=== PATIENT | female | born 1960 | race Caucasian/White ===

== ENCOUNTER 2020-04-02 13:02 | Outpatient (REF) | payer OTHER, SELFPAY ==
--- NOTE | 2020-04-02 13:18 | MR_ITS ---
EXAMINATION: MR LUMBAR SPINE WITHOUT CONTRAST CLINICAL INFORMATION: Pain radiating into both hips and thighs. COMPARISON: Nuclear medicine bone scan from 03/06/2019. CT abdomen and pelvis from 10/27/2015. TECHNIQUE: MRI of the lumbar spine was obtained using routine sequences without contrast. FINDINGS: Mild left convex curvature of the lumbar spine. Mild degenerative grade 1 anterolisthesis of L3 on L4. Otherwise, normal anatomic alignment. Moderate degenerative disc disease from L3-S1. Mild degenerative disc disease from L1-L3. Associated mixed Modic discogenic endplate changes, including mild Modic type I discogenic edema at L1-L2 and L4-L5. Marrow edema within the posterior elements of L3 and L4 appears degenerative stress reactive. No additional suspicious marrow edema. The vertebral body heights are largely maintained. The conus medullaris terminates at the level of L2-L3. The distal spinal cord is normal in appearance. 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 No significant abnormalities of the paraspinal musculature. Limited evaluation of the intra-abdominal structures without significant abnormalities. The abdominal aorta is of normal contour and caliber. AXIAL SPINAL LEVELS: L1-L2: Shallow diffuse disc bulge. There is mild bilateral facet joint arthropathy. There is no neural foraminal stenosis. There is no spinal canal stenosis. L2-L3: Mild diffuse disc bulge. There is moderate bilateral facet joint arthropathy. There is mild bilateral neural foraminal stenosis. There is mild narrowing of the left greater than right lateral recesses with no overt spinal canal stenosis centrally. L3-L4: Moderate diffuse disc bulge exacerbated by uncovering from anterolisthesis. There is severe bilateral facet joint arthropathy. There is moderate left worse than right neural foraminal stenosis. There is severe spinal canal stenosis exacerbated by prominent dorsal epidural lipomatous tissue. L4-L5: Moderate diffuse disc bulge. There is moderate bilateral facet joint arthropathy. There is moderate to severe bilateral neural foraminal stenosis. There is stenosis of the lateral recesses with moderate spinal canal stenosis centrally. L5-S1: Moderate diffuse disc bulge with superimposed mild central disc extrusion with inferior migration. There is moderate bilateral facet joint arthropathy. There is severe left and moderate to severe right neural foraminal stenosis. There is stenosis of the lateral recesses with no overt spinal canal stenosis centrally. IMPRESSION: Moderate multilevel degenerative spondyloarthropathy of the lumbar spine as described in detail above. Most notably, there is severe L3-L4 and moderate L4-L5 spinal canal stenoses. There are stenoses of the lateral recesses at L4-L5 and L5-S1. Moderate to severe neural foraminal stenoses from L3-S1. Edema within the posterior elements of L3 and L4 appears degenerative stress reactive.
== END 2020-04-02 13:03 | disposition home or self-care (01) ==
LOC: HO.MRI 13:02
PROVIDERS: Visit Provider Internal Medicine
DX: M79.651 Pain in right thigh (principal); M25.552 Pain in left hip; M25.551 Pain in right hip
CPT/HCPCS: 72148

== ENCOUNTER → 2020-04-07 14:29 | Outpatient (BNVA) | payer OTHER, SELFPAY | PROVIDERS: PCP Internal Medicine; Visit Provider Anesthesiology | DX: Z76.89 Persons encountering health services in other specified circumstances (principal) ==

== ENCOUNTER → 2020-04-15 07:58 | Outpatient (BNVA) | payer OTHER, SELFPAY | PROVIDERS: PCP Internal Medicine; Visit Provider Anesthesiology | DX: Z76.89 Persons encountering health services in other specified circumstances (principal) ==

== ENCOUNTER 2020-06-29 07:35 | Outpatient (REF) | payer OTHER, SELFPAY ==
[2020-06-29 07:54] LABS: COVID-19 Test Negative (Negative)
== END 2020-06-29 07:36 | disposition home or self-care (01) ==
LOC: HO.EMPCOV 07:35
PROVIDERS: Visit Provider Internal Medicine
DX: Z20.828 Contact with and (suspected) exposure to other viral communicable diseases (principal)
CPT/HCPCS: 36415; 87635; C9803

== ENCOUNTER → 2021-01-28 14:00 | Outpatient (BNVA) | payer OTHER, SELFPAY | PROVIDERS: PCP Internal Medicine; Visit Provider Student in an Organized Health Care Education/Training Program | DX: M15.9 Polyosteoarthritis, unspecified (principal); F17.200 Nicotine dependence, unspecified, uncomplicated; Z88.6 Allergy status to analgesic agent; Z88.2 Allergy status to sulfonamides; Z88.8 Allergy status to other drugs, medicaments and biological substances; Z79.899 Other long term (current) drug therapy | CPT/HCPCS: 99212 ==

== ENCOUNTER → 2021-05-25 15:52 | Outpatient (BNVA) | payer OTHER, SELFPAY | PROVIDERS: Visit Provider Anesthesiology ==

== ENCOUNTER 2021-06-07 14:38 | Outpatient (REF) | payer OTHER, SELFPAY ==
--- NOTE | ~2021-06-07 | MR_ITS ---
MR LUMBAR SPINE WITHOUT IV CONTRAST CLINICAL INFORMATION: Spinal stenosis. COMPARISON: Lumbar spine MRI 04/02/2020. TECHNIQUE: MRI of the lumbar spine was obtained using routine sequences without contrast. FINDINGS: There are 5 nonrib-bearing lumbar-type vertebral bodies. There is grade 1 anterolisthesis of L3 on L4. Leftward convex scoliotic curvature of the lumbar spine. Vertebral body heights are maintained. There is mild disc volume loss and disc desiccation at L3-L4, L4-L5, and L5-S1. There Modic type I endplate signal changes at L4-L5 and L5-S1. There is no additional bone marrow edema. There are no acute fractures. Conus terminates at the L2 level. There are no significant extraspinal soft tissue findings. L1-L2: Small annular disc bulge. No central canal stenosis. Bilateral facet arthropathy. Mild foraminal encroachment bilaterally. L2-L3: Diffuse annular disc bulge and moderate bilateral facet arthropathy and ligamentum flavum thickening. No central canal stenosis. No significant foraminal stenosis. L3-L4: There is grade 1 anterolisthesis with uncovered disc. Diffuse annular disc bulge and severe bilateral facet arthropathy and ligamentum flavum thickening. Findings in concert result in similar severe central canal stenosis and mild to moderate bilateral foraminal stenosis. L4-L5: There is a broad-based right paracentral disc protrusion that results in progressive moderate central canal stenosis and severe right subarticular zone stenosis with compression of the traversing right L5 nerve root. There is a similar large right lateral disc protrusion at this level compresses the foraminal and extra foraminal segments of the exiting right L4 nerve root. L5-S1: A broad-based central disc protrusion results in mass effect on the traversing S1 nerve roots within the subarticular zones bilaterally, unchanged and disc osteophyte and facet arthropathy result in similar severe bilateral foraminal stenosis with compression of the exiting L5 nerve roots bilaterally. MR/MR lumbar spine wo con IMPRESSION: - At L3-L4, grade I anterolisthesis and multifactorial degenerative changes result in similar severe central canal stenosis and mild to moderate bilateral foraminal stenosis. - At L4-L5, a right paracentral disc protrusion is increased in size resulting in worsening moderate central canal stenosis and worsening severe right subarticular zone stenosis with compression of the traversing right L5 nerve root. Similar large right lateral disc protrusion at this level compresses the foraminal and extra foraminal segments of the exiting right L4 nerve root. Modic type I endplate signal changes at this level. - At L5-S1, a broad-based central disc protrusion results in mass effect on the traversing S1 nerve roots within the subarticular zones bilaterally, and disc osteophyte and facet arthropathy result in similar severe bilateral foraminal stenosis with compression of the exiting L5 nerve roots bilaterally. Modic type I endplate signal changes at this level.
== END 2021-06-07 14:39 | disposition home or self-care (01) ==
LOC: HO.MRI 14:38
PROVIDERS: PCP Internal Medicine; Visit Provider Neurological Surgery
DX: M48.061 Spinal stenosis, lumbar region without neurogenic claudication (principal)
CPT/HCPCS: 72148

== ENCOUNTER → 2021-06-28 14:30 | Outpatient (BNVA) | payer OTHER, SELFPAY | PROVIDERS: PCP Internal Medicine; Visit Provider Nurse Practitioner Family ==

== ENCOUNTER 2021-06-29 12:46 | Outpatient (REF) | payer OTHER, SELFPAY ==
[2021-06-29 15:11] LABS: Alanine Aminotransferase 19 U/L (0-31); Albumin Level 4.7 g/dL (3.5-5.0); Alkaline Phosphatase 83 U/L (39-117); Anion Gap 10 (12-20); Aspartate Amino Transferase 16 U/L (5-31); Bilirubin Total 0.4 mg/dL (0.0-1.0); Blood Urea Nitrogen 25 mg/dL (9-16); Calcium 9.8 mg/dL (8.4-10.2); Carbon Dioxide 31 mmol/L (22-29); Chloride 102 mmol/L (96-108); Estimated Glomerular Filt Rate 57; Glucose Random 93 mg/dL (60-115); Potassium 4.1 mmol/L (3.3-5.1); Sodium 139 mmol/L (135-145); Total Protein 7.1 g/dL (6.5-8.0)
[2021-06-29 15:33] LABS: Vitamin D 25-OH Total 37.7 ng/mL (>30)
== END 2021-06-29 12:47 | disposition home or self-care (01) ==
LOC: HO.LAB 12:46
PROVIDERS: PCP Internal Medicine; Visit Provider Nurse Practitioner Family
DX: M15.9 Polyosteoarthritis, unspecified (principal)
CPT/HCPCS: 36415; 80053; 82306

== ENCOUNTER → 2021-09-26 14:27 | Outpatient (BNVA) | payer OTHER, SELFPAY | PROVIDERS: PCP Internal Medicine; Visit Provider Nurse Practitioner Family | DX: Z13.89 Encounter for screening for other disorder (principal) ==

== ENCOUNTER 2021-09-29 08:11 | Outpatient (REF) | payer OTHER, SELFPAY ==
--- NOTE | ~2021-09-29 | XR_ITS ---
EXAMINATION: XR HIP-LEFT XR KNEE-BILATERAL CLINICAL INFORMATION: Bilateral knee pain and left hip pain. COMPARISON: None TECHNIQUE: 2 views of the left hip and 4 upright views each of both knees were obtained. FINDINGS: Left hip: The bony alignments are intact. The cortices are intact. No significant osteoarthrosis. The soft tissues are unremarkable. Multiple phleboliths are seen in the pelvis. Right knee: Moderate medial compartmental and mild lateral and mild to moderate patellofemoral compartmental osteoarthrosis is present. Curvilinear calcification is noted overlying the medial femoral condyle, consistent with medial collateral ligament calcification. Left knee: Mild tricompartmental osteoarthrosis is present. No evidence of any joint effusion or fracture and/or dislocation. XR/XR knee LT 3V IMPRESSION: 1. The left hip appears unremarkable. 2. Moderate medial and mild lateral and mild to moderate patellofemoral compartmental osteoarthrosis is present. Curvilinear soft tissue calcification overlying the medial femoral condyle is most consistent with medial collateral ligament calcification. 3. Mild tricompartmental osteoarthrosis of the left knee.
--- NOTE | ~2021-09-29 | XR_ITS ---
EXAMINATION: XR HIP-LEFT XR KNEE-BILATERAL CLINICAL INFORMATION: Bilateral knee pain and left hip pain. COMPARISON: None TECHNIQUE: 2 views of the left hip and 4 upright views each of both knees were obtained. FINDINGS: Left hip: The bony alignments are intact. The cortices are intact. No significant osteoarthrosis. The soft tissues are unremarkable. Multiple phleboliths are seen in the pelvis. Right knee: Moderate medial compartmental and mild lateral and mild to moderate patellofemoral compartmental osteoarthrosis is present. Curvilinear calcification is noted overlying the medial femoral condyle, consistent with medial collateral ligament calcification. Left knee: Mild tricompartmental osteoarthrosis is present. No evidence of any joint effusion or fracture and/or dislocation. XR/XR knee RT 3V IMPRESSION: 1. The left hip appears unremarkable. 2. Moderate medial and mild lateral and mild to moderate patellofemoral compartmental osteoarthrosis is present. Curvilinear soft tissue calcification overlying the medial femoral condyle is most consistent with medial collateral ligament calcification. 3. Mild tricompartmental osteoarthrosis of the left knee.
--- NOTE | ~2021-09-29 | XR_ITS ---
EXAMINATION: XR HIP-LEFT XR KNEE-BILATERAL CLINICAL INFORMATION: Bilateral knee pain and left hip pain. COMPARISON: None TECHNIQUE: 2 views of the left hip and 4 upright views each of both knees were obtained. FINDINGS: Left hip: The bony alignments are intact. The cortices are intact. No significant osteoarthrosis. The soft tissues are unremarkable. Multiple phleboliths are seen in the pelvis. Right knee: Moderate medial compartmental and mild lateral and mild to moderate patellofemoral compartmental osteoarthrosis is present. Curvilinear calcification is noted overlying the medial femoral condyle, consistent with medial collateral ligament calcification. Left knee: Mild tricompartmental osteoarthrosis is present. No evidence of any joint effusion or fracture and/or dislocation. XR/XR hip LT min 2V IMPRESSION: 1. The left hip appears unremarkable. 2. Moderate medial and mild lateral and mild to moderate patellofemoral compartmental osteoarthrosis is present. Curvilinear soft tissue calcification overlying the medial femoral condyle is most consistent with medial collateral ligament calcification. 3. Mild tricompartmental osteoarthrosis of the left knee.
== END 2021-09-29 08:12 | disposition home or self-care (01) ==
LOC: HO.XRAY 08:11
PROVIDERS: PCP Internal Medicine; Visit Provider Nurse Practitioner Family
DX: M25.561 Pain in right knee (principal); M25.562 Pain in left knee; M25.552 Pain in left hip
CPT/HCPCS: 73502; 73562

== ENCOUNTER 2021-10-06 12:51 | Outpatient (REF) | payer OTHER, SELFPAY ==
--- NOTE | ~2021-10-06 | XR_ITS ---
EXAMINATION: XR KNEE AP STANDING CLINICAL INFORMATION: Pain. COMPARISON: Radiographs of the knees dated from 09/29/2021. TECHNIQUE: AP bilateral standing view of the knees was obtained. FINDINGS: Again noted medial collateral ligamentous injury in the right knee. No interval injuries. Similar degree of moderate degenerative osteoarthritis in the medial compartment of the right knee and mild degenerative osteoarthritis elsewhere bilaterally. XR/XR knee standing BI IMPRESSION: No significant change since 09/29/2021.
== END 2021-10-06 12:52 | disposition home or self-care (01) ==
LOC: HO.HOSX 12:51
PROVIDERS: Visit Provider Orthopaedic Surgery
DX: M17.0 Bilateral primary osteoarthritis of knee (principal)
CPT/HCPCS: 20610; 73565; J1100

== ENCOUNTER → 2021-11-10 08:27 | Outpatient (BNVA) | payer OTHER, SELFPAY | PROVIDERS: Visit Provider Obstetrics & Gynecology | DX: Z01.419 Encounter for gynecological examination (general) (routine) without abnormal findings (principal) ==

== ENCOUNTER 2021-11-24 14:33 | Outpatient (REF) | payer OTHER, SELFPAY | END 2021-11-24 14:34 | disposition home or self-care (01) | LOC: HO.LAB 14:33 | PROVIDERS: Visit Provider Obstetrics & Gynecology | DX: N90.89 Other specified noninflammatory disorders of vulva and perineum (principal); L98.9 Disorder of the skin and subcutaneous tissue, unspecified | CPT/HCPCS: 56605; 56606; 88304; 88305; 88312 ==

== ENCOUNTER 2021-11-25 13:54 | Outpatient (REF) | payer OTHER, SELFPAY ==
--- NOTE | ~2021-11-25 | MM_ITS ---
EXAMINATION: BONE DENSITOMETRY CLINICAL INDICATION: Asymptomatic menopausal state. COMPARISON: None (current study represents initial baseline exam). TECHNIQUE: Using a [employer] DXA System (software version: 13.1) manufactured by [employer], dual-energy x-ray absorptiometry was performed of the lumbar spine and left hip. The images are of good technical quality. Summary results are attached. FINDINGS: AP SPINE L1-L2 (excluding L3 and L4): The data of L1-L4 has been changed to exclude the L3 and L4 vertebral bodies, because degenerative changes at these levels may cause overestimation of lumbar spine density. BMD 1.126 g/cm2, Z-score 0.3, T-score -0.3, normal. LEFT FEMUR, NECK: BMD 1.005 g/cm2, Z-score 0.6, T-score -0.2, normal. LEFT FEMUR, TOTAL: BMD 1.050 g/cm2, Z-score 0.8, T-score 0.3, normal. IDENTIFIED RISK FACTORS: Menopause, history of fracture (adult). HISTORY OF FRACTURE: Forearm, shoulder. MEDICATIONS: Calcium supplements or multivitamin, vitamin D. MM/XR DEXA axial skeleton IMPRESSION: 1. DIAGNOSIS: Normal bone density based on the lowest T-score value of -0.3 in the lumbar spine applying World Health Organization criteria. 2. 10-YEAR FRACTURE RISK PREDICTION, FRAX: According to the guidelines, FRAX calculation should only be performed on patients in the osteopenia bone density category. Therefore, FRAX was not performed on this patient. 3. Treatment Recommendations: NOF guidelines recommend consideration for treatment in postmenopausal women and men age 50 and older presenting with the following: -A hip or vertebral (clinical or morphometric) fracture. -T-score less than or equal to -2.5 at the femoral neck or spine after appropriate evaluation to exclude secondary causes. -Low bone mass at the hip or spine and a 10-year fracture probability by FRAX of greater than or equal to 3% for hip fracture or greater than or equal to 20% for major osteoporotic fracture based on the [place] adapted WHO algorithm. 4. Other Recommendations: All treatment decisions require clinical judgment and consideration of individual patient factors, including patient preferences, comorbidities, previous drug use, risk factors not captured in the FRAX model (e.g. frailty, falls, vitamin D deficiency, increased bone turnover, interval significant decline in bone density) and possible under or overestimation of fracture risk by FRAX. FUTURE SCAN RECOMMENDATION: People with diagnosed cases of osteoporosis or at high risk for fracture should have regular bone mineral density tests. For patients eligible for Medicare, routine testing is allowed once every 2 years. The testing frequency can be increased to one year for patients who have rapidly progressing disease, those who are receiving or discontinuing medical therapy to restore bone mass, or have additional risk factors.
--- NOTE | ~2021-11-25 | MM_ITS ---
EXAMINATION: MM SCREENING DIGITAL BREAST TOMOSYNTHESIS, BILATERAL CLINICAL INFORMATION: Screening. Asymptomatic. COMPARISON: Mammography: December 06, 2018 and studies dating back to November 06, 2011 TECHNIQUE: Digital breast tomosynthesis is performed in both the craniocaudal and mediolateral oblique views along with computer-aided detection (CAD). Synthesized 2D images are generated from the tomosynthesis. FINDINGS: There are scattered areas of fibroglandular density (ACR BI-RADS breast composition Category b). There are no significant masses, abnormal calcifications, or other abnormalities. MM/MM tomosynthesis screening BI IMPRESSION: There are no significant changes from prior study. ASSESSMENT: BI-RADS 1: Negative RECOMMENDATION: Routine annual mammography screening. This patient's information was entered into a reminder system with a target due date for their next mammogram.
== END 2021-11-25 13:55 | disposition home or self-care (01) ==
LOC: HO.MAMMO 13:54
PROVIDERS: Visit Provider Obstetrics & Gynecology
DX: Z12.31 Encounter for screening mammogram for malignant neoplasm of breast (principal); Z13.820 Encounter for screening for osteoporosis; Z78.0 Asymptomatic menopausal state; Z82.62 Family history of osteoporosis
CPT/HCPCS: 77063; 77067; 77080

== ENCOUNTER → 2022-01-02 08:17 | Outpatient (BNVA) | payer OTHER, SELFPAY | PROVIDERS: PCP Internal Medicine | DX: N81.10 Cystocele, unspecified (principal); R32 Unspecified urinary incontinence | CPT/HCPCS: 51798 ==

== ENCOUNTER 2022-03-09 14:07 | Outpatient (REF) | payer OTHER, SELFPAY ==
[2022-03-09 14:56] LABS: COVID-19 Test Negative (Negative); IDNOW Serial# 9DB6401D
== END 2022-03-09 14:08 | disposition home or self-care (01) ==
LOC: HO.LAB 14:07
PROVIDERS: Visit Provider Internal Medicine
DX: Z20.822 Contact with and (suspected) exposure to COVID-19 (principal)
CPT/HCPCS: 87635; C9803

== ENCOUNTER 2022-03-21 14:16 | Outpatient (AMB) | payer OTHER, SELFPAY ==
--- NOTE | 2022-03-17 15:10 | A.OFFVIS_ITS ---
Intake Intake Visit Reasons: 6 week follow up incontinence Intake Note: Patient is present for follow up incontinence Patient states that she previously seen ENGINE TESTING SUPERVISOR Maria Teresa and was referred to PT. Patient states that the referral was never inputted and never had the PT. Patient states that she would like to discuss to have Pessary. Blood Thinners: NONE Post Void Residual: 0ml Clinical Assoc Required: No Accompanied by: Self / Same As Patient Allergies sulfamethoxazole [From BACTRIM] Allergy (Intermediate, Verified 12/14/22 15:11) N/V trimethoprim [From BACTRIM] Allergy (Intermediate, Verified 12/14/22 15:11) N/V Sulfa (Sulfonamide Antibiotics) Allergy (Unknown, Verified 12/14/22 15:11) diarrhea gabapentin Allergy (Verified 12/14/22 15:11) swelling of hands and feet acetaminophen [Percocet] Adverse Reaction (Unknown, Verified 12/14/22 15:11) stomach upset oxycodone [Percocet] Adverse Reaction (Unknown, Verified 12/14/22 15:11) stomach upset From PERCOCET Allergy (Severe, Uncoded 12/14/22 15:11) INABILITY TO URINATE,VOMITING HPI HPI Comments History of Present Illness Details Sweta is a pleasant female. She is a patient of . She seen for following urologic conditions - genitourinary syndrome menopause GSM Occasional urgency and frequency Reports vaginal dryness Trial estradiol PFSH Medical History Chronic pain syndrome Hammer toe Osteoarthritis, generalized Spinal stenosis of lumbar region Surgical History H/O knee surgery H/O laminectomy H/O toe surgery H/O: hysterectomy S/P discectomy for herniated nucleus pulposus Family History Father Heart disease Stroke Maternal Grandfather Stroke Paternal Uncle Cancer Social History Alcohol intake: current Alcohol intake frequency: holidays/special occasions only Patient Tobacco Use Status: Former Tobacco user Tobacco use type: Cigarette Years Smoked: stopped few months ago Review of Systems Const Denies chills and Denies fever(s) Card Reports no additional complaints and Denies syncope Resp Denies cough GI Denies abdominal pain and Denies heartburn Reports as per HPI and Denies change in libido Neuro Denies syncope Psych Denies change in libido Endo Denies change in libido Physical Exam Const General: cooperative, healthy appearing, comfortable and no acute distress Orientation/consciousness: patient oriented x3 HEENT Face and sinus: Yes normal facial exam Mouth: moist mucous membranes Neck Neck: Yes normal visual inspection, Yes full ROM and Yes trachea midline Chest Chest palpation & inspection: normal inspection of the chest Resp Effort & Inspection: normal respiratory effort, able to speak in complete sentences and no respiratory distress GI Inspection: Yes normal to inspection Back/Spine/Pelvis Cervical Spine: normal cervical lordosis Thoracic/Lumbar Spine: thoracic and lumbar spine normal to inspection Skin General skin exam: no rashes or lesions noted Neuro General: patient oriented x3, gait normal, tone normal and moves all extremities Extrem General: Yes normal to inspection and Yes capillary refill normal Office Procedures Post Void Residual Post Residual Void Post Void Residual (PVR): 0 [id number]-Ampa Void Residual by ultrasound Results AMB Urinalysis, Automated UA Leukoctes 70 Ana/uL Last Edit by Jennifer Castro [facility] on 03/21/22 14:47 UA Nitrite Negative Last Edit by Jennifer Castro [facility] on 03/21/22 14:47 UA Urobilinogen 0.2 mg/dL Last Edit by Jennifer Castro [facility] on 03/21/22 14:4 7 UA Protein 15 mg/dL Last Edit by Jennifer Castro [facility] on 03/21/22 14:47 UA pH 6.0 Last Edit by Jennifer Castro [facility] on 03/21/22 14:47 UA Blood 0 Carlos/uL Last Edit by Jennifer Castro [facility] on 03/21/22 14:47 UA Specific Ona 1.030 Last Edit by Jennifer Castro [facility] on 03/21/22 14: 47 UA Ketone Negative Last Edit by Jennifer Castro [facility] on 03/21/22 14:47 UA Bilirubin 0 mg/dL Last Edit by Jennifer Castro [facility] on 03/21/22 14:47 UA Glucose 0 mg/dL Last Edit by Jennifer Castro [facility] on 03/21/22 14:47 Results Reviewed Results Reviewed: Laboratory Last Values Urine pH (Auto) 6.0 03/21/22 14:32 Specific Ona (Auto) 1.030 03/21/22 14:32 Urine Protein (Auto) 15 mg/dL 03/21/22 14:32 Glucose (UA)(Auto) 0 mg/dL 03/21/22 14:32 Urine Ketones (Auto) Negative 03/21/22 14:32 Urine Blood (Auto) 0 Carlos/uL 03/21/22 14:32 Urine Nitrite (Auto) Negative 03/21/22 14:32 Urine Bilirubin (Auto) 0 mg/dL 03/21/22 14:32 Urine Urobilinogen (Auto) 0.2 mg/dL 03/21/22 14:32 Leukocyte Esterase (Auto) 70 Ana/uL 03/21/22 14:32 Assessment & Plan Assessment & Plan (1) Urge incontinence of urine: Code(s): N39.41 - Urge incontinence (2) Lichen sclerosus: Code(s): L90.0 - Lichen sclerosus et atrophicus (3) Genitourinary syndrome of menopause: Code(s): N95.8 - Other specified menopausal and perimenopausal disorders Plan 3 week follow-up Orders: Orders AMB Urinalysis Automated 03/21/22 Z13.9 - Encounter for screening, unspecified AMB Post Void Residual by ultrasound 03/21/22 R32 - Unspecified urinary incontinence Medications: New estradiol 0.01%(0.1mg/gram) apply thin coat daily 42.5 grams 2RF 30 days L90.0 - Lichen sclerosus et atrophicus Patient Instructions: Imaging studies, laboratory and physical exam results were discussed and reviewed in detail. No major barriers to patient understanding were identified. An opportunity to ask questions regarding the treatment plan was provided. All questions were answered. The patient expressed understanding and agreement with the above treatment plan. The patient is aware they should contact our office by phone for worsening of their current condition or the appearance of new urologic symptoms. Compliance is encouraged with any medications and followup testing that is ordered. It is a privilege to participate in the urologic care of your patient. If you have any questions or concerns regarding treatment for the above conditions, or other urologic issues, please do not hesitate to contact me. The office telephone contact is [phone]. This note is constructed using voice recognition software. While every effort has been made to ensure accuracy systems support engineer errors may have been included. Yours sincerely, Dr Curtis Ambrose MD, [facility] - Urology Providers of Expert, Compassionate Care for the Genitourinary System Coding Level of Care Code New Pt Level 4 (58863) Diagnoses Urge incontinence of urine N39.41 Lichen sclerosus L90.0 Genitourinary syndrome of menopause N95.8 CPT Codes Post Residual Void - PVR CPT Code: 63887-Ogvl Void Residual by ultrasound ([id number])
== END 2022-03-21 15:16 | disposition home or self-care (01) ==
LOC: HO.HUSH 14:16
PROVIDERS: PCP Internal Medicine; Visit Provider Urology
DX: N39.41 Urge incontinence (principal); L90.0 Lichen sclerosus et atrophicus; N95.8 Other specified menopausal and perimenopausal disorders
CPT/HCPCS: 99204

== ENCOUNTER → 2022-03-21 14:16 | Outpatient (BNVA) | payer OTHER, SELFPAY | PROVIDERS: PCP Internal Medicine; Visit Provider Urology | DX: N39.41 Urge incontinence (principal); L90.0 Lichen sclerosus et atrophicus; N95.8 Other specified menopausal and perimenopausal disorders | CPT/HCPCS: 51798 ==

== ENCOUNTER → 2022-04-13 14:19 | Outpatient (BNVA) | payer OTHER, SELFPAY | PROVIDERS: PCP Internal Medicine; Visit Provider Urology | DX: N39.41 Urge incontinence (principal); N39.3 Stress incontinence (female) (male); N81.89 Other female genital prolapse; N81.10 Cystocele, unspecified | CPT/HCPCS: 51798; 57160 ==

== ENCOUNTER → 2022-07-17 09:22 | Outpatient (BNVA) | payer OTHER, SELFPAY | PROVIDERS: PCP Internal Medicine; Visit Provider Nurse Practitioner Family | DX: Z13.89 Encounter for screening for other disorder (principal) ==

== ENCOUNTER 2022-07-27 14:34 | Outpatient (REF) | payer OTHER, SELFPAY ==
[2022-07-27 15:31] LABS: Alanine Aminotransferase 14 U/L (0-31); Albumin Level 4.4 g/dL (3.5-5.0); Alkaline Phosphatase 81 U/L (39-117); Anion Gap 16 (12-20); Aspartate Amino Transferase 17 U/L (5-31); Bilirubin Total 0.3 mg/dL (0.0-1.0); Blood Urea Nitrogen 27 mg/dL (9-16); Calcium 9.5 mg/dL (8.4-10.2); Carbon Dioxide 23 mmol/L (22-29); Chloride 106 mmol/L (96-108); Estimated Glomerular Filt Rate 41; Glucose Random 94 mg/dL (60-115); Potassium 4.2 mmol/L (3.3-5.1); Sodium 141 mmol/L (135-145); Total Protein 6.5 g/dL (6.5-8.0)
== END 2022-07-27 14:35 | disposition home or self-care (01) ==
LOC: HO.LAB 14:34
PROVIDERS: Visit Provider Nurse Practitioner Family
DX: M17.0 Bilateral primary osteoarthritis of knee (principal)
CPT/HCPCS: 36415; 80053

== ENCOUNTER 2022-10-13 08:00 | Outpatient (RCR) | payer OTHER, SELFPAY ==
--- NOTE | 2022-08-07 18:19 | MHC.PT.EP ---
[facility] [place] Office [place] Office [place] [facility] [address] Willi Motta [address] [phone] F: [phone] F: [phone] F: [phone] F: [phone] Physical Therapy Plan of Care Date of Evaluation: Date of Surgery: Diagnosis: other female genital prolapse, stress incontinence (RC) Assessment: pt is a 62 y/o female presenting to physical therapy w/ referring diagnosis of other female genital prolapse, stress incontinence. PT diagnoses include M62.81 muscle weakness, N81.10 cystocele, unspecified, M62.83 muscle spasm, N39.46 mixed incontinence. Impairments include pain, decreased range of motion, decreased strength, impaired functional mobility, impaired postural awareness, and altered ambulation mechanics. pt is a good candidate for skilled PT due to age, potential remediation of impairments, typical disease/condition progression and prognosis, comorbidities, and motivation. pt would benefit from skilled PT intervention to provide a tailored strengthening and stretching exercise program, functional training, gait training, postural re-training, neuromuscular re-education, modalities as needed for pain, equipment safety demonstration. Frequency and Duration: The patient will be seen 1x/wk for 8 wks Short Term Goals: pt will be I w/ HEP to promote self-management of condition. Pt will decrease pad usage to 1x a day. Pt will demonstrate 10 consistent and consecutive 10 second pelvic floor contractions w/o glute compensations. Care Home Goals: Coordinate pelvic floor with thoracic diaphragm/ functional activities to reduce incontinence episodes. Pt will perform all ADL, work and recreational activities with 80% continence. Describe normal voiding frequency and patterns assessed via teachback method. Treatment Plan: Modalities to reduce pain, spasms and effusion. Manual therapy to restore motion and function. Therapeutic exercise to improve strength and flexibility. Neuromuscular re-education for posture and balance. Therapeutic activities to return to functional activities of daily living. Electronically signed by: Please sign and return to therapist. Thank you for your referral.
--- NOTE | 2022-10-24 11:22 | MHC.PT.DC ---
[facility] [place] Office [place] [facility] [place] Office [address] Willi Motta 140 [facility] [phone] F: [phone] F: [phone] F: [phone] F: [phone] Physical Therapy Discharge Report Diagnosis: other female genital prolapse, stress incontinence (RC) Date of Surgery: Date of Evaluation: 08/07/22 Date of Discharge: 10/24/22 Treatments to Date: 6 Cancellations to Date: 3 No Shows to Date: 0 Discharge Status: Achieved Goals Improved Function Independent with HEP Discharge Summary: pt stated she has not worn a pantiliner in over a week as she has not been having any leakage. She feels at this time she does not want to pursue surgery as she is happy w/ her progress w/ pelvic floor PT and enjoys the exercises. She is independent w/ her HEP which we reviewed today and she demonstrates excellent form and postural awareness. She was given an updated resistance band to progress the strength. I will keep her chart open for 2 weeks should she have any additional questions or concerns. Otherwise, I will discharge her. Electronically signed by: Lakisha Day PT, DPT Please sign and return to therapist. Thank you for your referral.
== END 2022-10-24 11:23 | disposition home or self-care (01) ==
LOC: HO.PT 08:00
PROVIDERS: PCP Internal Medicine; Visit Provider Urology
DX: N81.89 Other female genital prolapse (principal); N39.3 Stress incontinence (female) (male); N39.41 Urge incontinence
CPT/HCPCS: 97112; 97162

== ENCOUNTER 2022-10-18 10:45 | Outpatient (REF) | payer OTHER, SELFPAY ==
[2022-10-18 12:56] LABS: Amphetamine Screen Urine Not Detected (Not Detect); Barbiturates, Urine Not Detected (Not Detect); Benzodiazepines Screen Urine Not Detected (Not Detect); Cannabinoid Screen Urine Not Detected (Not Detect); Cocaine Screen Urine Not Detected (Not Detect); Fentanyl, urine Not Detected (Not Detect); Opiate Screen Urine Not Detected (Not Detect); Phencyclidine Screen Urine Not Detected (Not Detect)
== END 2022-10-18 10:46 | disposition home or self-care (01) ==
LOC: HO.LAB 10:45
PROVIDERS: PCP Internal Medicine; Visit Provider Nurse Practitioner Family
DX: Z79.899 Other long term (current) drug therapy (principal)
CPT/HCPCS: 80307; 80373

== ENCOUNTER 2022-11-30 14:38 | Outpatient (AMB) | payer OTHER, SELFPAY ==
--- NOTE | 2022-11-30 14:43 | A.OFFVIS_ITS ---
Intake Intake Visit Reasons: Pessary maintenance- 6m follow up Intake Note: Pt presents to the office today for pessary maintenance/6 month follow-up. Urinalysis done. PVR-0ml Allergies sulfamethoxazole [From BACTRIM] Allergy (Intermediate, Verified 02/01/23 15:16) N/V trimethoprim [From BACTRIM] Allergy (Intermediate, Verified 02/01/23 15:16) N/V Sulfa (Sulfonamide Antibiotics) Allergy (Unknown, Verified 02/01/23 15:16) diarrhea gabapentin Allergy (Verified 02/01/23 15:16) swelling of hands and feet acetaminophen [Percocet] Adverse Reaction (Unknown, Verified 02/01/23 15:16) stomach upset oxycodone [Percocet] Adverse Reaction (Unknown, Verified 02/01/23 15:16) stomach upset From PERCOCET Allergy (Severe, Uncoded 02/01/23 15:16) INABILITY TO URINATE,VOMITING HPI HPI Comments History of Present Illness Details Sweta is a 62-year-old female who presents to the office for 6-months follow-up for pessary maintenance. 11/30/22-- The patient was last seen on 05/25/22. She states she has been managing the pessary, and is able to remove and clean it. States having frequent voiding episodes and irritated skin due to wiping. The patient mentions occasional urinary episodes after every hour or two. Mentions drinking adequate amount of water. At once occasion the patient had episodes of nocturia every hour or 20 minutes. Has nocturia episodes which she links with increased fluid consumption during the day. The patient is using estradiol cream. Evaluation today-- Blood: negative, leukocytes: negative. Bladder scan PVR: 0 mL. Plan: Myrbetriq 50 mg QD was ordered. Follow-up after 6 months or sooner if needed. [facility] Medical History Chronic pain syndrome Hammer toe Osteoarthritis, generalized Spinal stenosis of lumbar region Surgical History H/O knee surgery H/O laminectomy H/O toe surgery H/O: hysterectomy S/P discectomy for herniated nucleus pulposus Family History Father Heart disease Stroke Maternal Grandfather Stroke Paternal Uncle Cancer Social History Alcohol intake: current Alcohol intake frequency: holidays/special occasions only Patient Tobacco Use Status: Former Tobacco user Tobacco use type: Cigarette Years Smoked: stopped few months ago Review of Systems Const All systems reviewed & are unremarkable except as noted in HPI and below Reports no additional complaints Eyes Reports no additional complaints ENT Reports no additional complaints Card Denies dyspnea Resp Denies cough and Denies dyspnea GI Reports no additional complaints Reports no additional complaints Musc Reports no additional complaints Skin/Breast Denies rash and Denies unusual bruising Neuro Reports no additional complaints Psych Reports no additional complaints Endo Reports no additional complaints Ba/Lymph Reports no additional complaints Aller/Immun Reports no additional complaints Physical Exam Const General: cooperative, healthy appearing and no acute distress Orientation/consciousness: patient oriented x3 HEENT Head: Yes normal to inspection, Yes normocephalic and Yes atraumatic Eyes Conjunctivae: conjunctivae normal Neck Neck: Yes normal visual inspection and Yes trachea midline Chest Chest palpation & inspection: normal inspection of the chest Resp Effort & Inspection: normal respiratory effort Cardio Rate: regular rate GI Inspection: Yes normal to inspection Skin General skin exam: no rashes or lesions noted Neuro General: patient oriented x3 Extrem General: No edema Psych Appearance: grossly normal Office Procedures Post Void Residual Post Residual Void Post Void Residual (PVR): 0 [id number]-Vywt Void Residual by ultrasound Results AMB Urinalysis, Automated UA Leukoctes 0 Ana/uL Last Edit by Ainsley Ritter MA on 11/30/22 15:01 UA Nitrite Negative Last Edit by Ainsley Ritter MA on 11/30/22 15:01 UA Urobilinogen 0.2 mg/dL Last Edit by Ainsley Ritter MA on 11/30/22 15:01 UA Protein 15 mg/dL Last Edit by Ainsley Ritter MA on 11/30/22 15:01 UA pH 6.0 Last Edit by Ainsley Ritter MA on 11/30/22 15:01 UA Blood 0 Carlos/uL Last Edit by Ainsley Ritter MA on 11/30/22 15:01 UA Specific [place] 1.020 Last Edit by Ainsley Ritter MA on 11/30/22 15:01 UA Ketone Negative Last Edit by Ainsley Ritter MA on 11/30/22 15:01 UA Bilirubin 0 mg/dL Last Edit by Ainsley Ritter MA on 11/30/22 15:01 UA Glucose 0 mg/dL Last Edit by Ainsley Ritter MA on 11/30/22 15:01 Results Reviewed Results Reviewed: Laboratory Last Values Urine pH (Auto) 6.0 11/30/22 14:46 Specific [place] (Auto) 1.020 11/30/22 14:46 Urine Protein (Auto) 15 mg/dL 11/30/22 14:46 Glucose (UA)(Auto) 0 mg/dL 11/30/22 14:46 Urine Ketones (Auto) Negative 11/30/22 14:46 Urine Blood (Auto) 0 Carlos/uL 11/30/22 14:46 Urine Nitrite (Auto) Negative 11/30/22 14:46 Urine Bilirubin (Auto) 0 mg/dL 11/30/22 14:46 Urine Urobilinogen (Auto) 0.2 mg/dL 11/30/22 14:46 Leukocyte Esterase (Auto) 0 Ana/uL 11/30/22 14:46 Assessment & Plan Assessment & Plan (1) Urge incontinence of urine: Code(s): N39.41 - Urge incontinence (2) JAMEL (stress urinary incontinence, female): Code(s): N39.3 - Stress incontinence (female) (male) (3) Cystocele: (4) Pelvic floor weakness: Code(s): N81.89 - Other female genital prolapse Plan Myrbetriq 50 mg QD was ordered. Follow-up after 6 months or sooner if needed. Orders: Orders AMB Urinalysis Automated 11/30/22 Z13.9 - Encounter for screening, unspecified AMB Post Void Residual by ultrasound 11/30/22 N39.41 - Urge incontinence Medications: New mirabegron ER (Myrbetriq) 50 mg PO DAILY 90 tabs 3RF Patient Instructions: The patient had an opportunity to ask questions regarding treatment plan. All questions were answered. Laboratory studies and physical exam results were discussed and reviewed in detail. No major barriers to understanding were identified. The patient expressed understanding and agreement with the above treatment plan. The patient is aware they should contact our office by phone for worsening of their current condition or the appearance of new symptoms. Compliance is encouraged with any medications and followup testing that is ordered. It is a privilege to be allowed the opportunity to participate in the urologic care of your patient. If you have any questions or concerns regarding treatment for the above conditions please do not hesitate to contact me. The office telephone contact is [phone]. This note is constructed in part using voice recognition software. While every effort has been made to ensure accuracy drill grinder errors may have been included. Yours sincerely, Nick Nunez MD Coding Level of Care Code Est Pt Level 4 (69050) Diagnoses Urge incontinence of urine N39.41 JAMEL (stress urinary incontinence, female) N39.3 Cystocele Pelvic floor weakness N81.89 CPT Codes Post Residual Void - PVR CPT Code: 39638-[id number] Void Residual by ultrasound ([id number])
== END 2022-11-30 15:05 | disposition home or self-care (01) ==
LOC: HO.HUSH 14:39
PROVIDERS: PCP Internal Medicine; Visit Provider Urology
DX: N39.41 Urge incontinence (principal); N39.3 Stress incontinence (female) (male); N81.89 Other female genital prolapse
CPT/HCPCS: 99214

== ENCOUNTER → 2022-11-30 14:38 | Outpatient (BNVA) | payer OTHER, SELFPAY | PROVIDERS: PCP Internal Medicine; Visit Provider Urology | DX: N39.41 Urge incontinence (principal); N39.3 Stress incontinence (female) (male); N81.89 Other female genital prolapse; N81.10 Cystocele, unspecified | CPT/HCPCS: 51798 ==

== ENCOUNTER → 2022-12-06 14:36 | Outpatient (BNVA) | payer OTHER, SELFPAY | PROVIDERS: PCP Internal Medicine; Visit Provider Obstetrics & Gynecology ==

== ENCOUNTER → 2022-12-14 14:31 | Outpatient (BNVA) | payer OTHER, SELFPAY | PROVIDERS: PCP Internal Medicine; Visit Provider Orthopaedic Surgery | DX: M17.0 Bilateral primary osteoarthritis of knee (principal); M48.061 Spinal stenosis, lumbar region without neurogenic claudication | CPT/HCPCS: 20610; J1100 ==

== ENCOUNTER 2023-01-11 14:33 | Outpatient (REF) | payer OTHER, SELFPAY ==
--- NOTE | ~2023-01-11 | MM_ITS ---
EXAMINATION: MM SCREENING DIGITAL BREAST TOMOSYNTHESIS, BILATERAL CLINICAL INFORMATION: Screening. Asymptomatic. The lifetime risk of breast cancer based on the Tyrer-Cuzick Model is 7.5%. COMPARISON: Mammography: This study is compared with prior exams dating back to 2018. TECHNIQUE: Digital breast tomosynthesis is performed in both the craniocaudal and mediolateral oblique views along with computer-aided detection (CAD). Synthesized 2D images are generated from the tomosynthesis. FINDINGS: There are scattered areas of fibroglandular density (ACR BI-RADS breast composition Category b). There are no significant masses, abnormal calcifications, or other abnormalities. MM/MM tomosynthesis screening BI IMPRESSION: No mammographic evidence of malignancy. ASSESSMENT: BI-RADS BI-RADS 1 - Negative RECOMMENDATION: Routine annual mammography screening. 1 year F/U This examination should not preclude the clinical evaluation of a suspicious palpable abnormality. This patient's information was entered into a reminder system with a target due date for their next mammogram.
== END 2023-01-11 14:34 | disposition home or self-care (01) ==
LOC: HO.MAMMO 14:33
PROVIDERS: Visit Provider Obstetrics & Gynecology
DX: Z12.31 Encounter for screening mammogram for malignant neoplasm of breast (principal)
CPT/HCPCS: 77063; 77067

== ENCOUNTER → 2023-01-11 15:00 | Outpatient (BNV) | payer OTHER, SELFPAY | PROVIDERS: Visit Provider Radiology Diagnostic Radiology | DX: Z12.31 Encounter for screening mammogram for malignant neoplasm of breast (principal) | CPT/HCPCS: 77063; 77067 ==

== ENCOUNTER 2023-02-01 15:00 | Outpatient (AMB) | payer OTHER, SELFPAY ==
--- NOTE | 2023-02-01 15:10 | MHC.OFFVIS ---
Intake Vital Signs 02/01/23 15:11 Height 5 ft 10 in Weight 194 lb 10.691 oz BMI 27.9 BP 126/78 Blood Pressure Location Rt brachial Position Sitting Pulse 75 Pulse Source Pulse Oximeter Temp 97.5 F Temp Source Skin Pulse Oximetry (%) 97 Intake Visit Reasons: osteoarthritis Intake Note: Pt seen today for OA follow up. Reports Tramadol withdrawals last used 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 Required: No Accompanied by: Self / Same As Patient Allergies sulfamethoxazole [From BACTRIM] Allergy (Intermediate, Verified 02/01/23 15:16) N/V trimethoprim [From BACTRIM] Allergy (Intermediate, Verified 02/01/23 15:16) N/V Sulfa (Sulfonamide Antibiotics) Allergy (Unknown, Verified 02/01/23 15:16) diarrhea gabapentin Allergy (Verified 02/01/23 15:16) swelling of hands and feet acetaminophen [Percocet] Adverse Reaction (Unknown, Verified 02/01/23 15:16) stomach upset oxycodone [Percocet] Adverse Reaction (Unknown, Verified 02/01/23 15:16) stomach upset From PERCOCET Allergy (Severe, Uncoded 02/01/23 15:16) INABILITY TO URINATE,VOMITING Medication List - Last Reconciled 02/01/23 by Trisha Lozano MD antiarthritic combination no.2 (glucosamine-chondroitin) mg PO DAILY biotin mcg PO cholecalciferol (vitamin D3) 125 mcg PO DAILY clobetasol 0.05% 1 appl topical DAILY 1 week cyanocobalamin (vitamin B-12) 5,000 mcg PO DAILY estradiol 0.01%(0.1mg/gram) apply thin coat daily 30 days fluticasone propionate 50 mcg/actuation 1 spray intranasal DAILY mirabegron ER (Myrbetriq) 50 mg PO DAILY HPI HPI Comments History of Present Illness Details This is a 62-year-old female with generalized osteoarthritis who presents for follow-up. She was last seen by Cande Garcia 07/17. At that time the plan was to attempt to taper the tramadol. Patient took herself off tramadol abruptly and suffered some withdrawal symptoms. She is through with these symptoms. After stopping the tramadol she did not feel that it was helping her much. She has been having worsening bilateral knee pain, worse on the right. She recently saw Dr. Barrera and had a steroid injection. She states that the steroid injection provided minimal relief. She takes Aleve 220 mg 2 tabs twice daily to help her overall pain. She uses Voltaren gel multiple times throughout the day. Tylenol does not help. She has been taking glucosamine for many years. [facility] Medical History Chronic pain syndrome Hammer toe Osteoarthritis, generalized Spinal stenosis of lumbar region Surgical History H/O knee surgery H/O laminectomy H/O toe surgery H/O: hysterectomy S/P discectomy for herniated nucleus pulposus Family History Father Heart disease Stroke Maternal Grandfather Stroke Paternal Uncle Cancer Social History Alcohol intake: current Alcohol intake frequency: holidays/special occasions only Patient Tobacco Use Status: Former Tobacco user Tobacco use type: Cigarette Years Smoked: stopped few months ago Review of [place] [facility] [place]ralgias, Reports limited range of motion and Reports stiffness Physical Exam Vital Signs: Last Vital Signs Temp 97.5 F 02/01/23 15:11 Pulse 75 02/01/23 15:11 BP 126/78 02/01/23 15:11 Pulse Ox 97 02/01/23 15:11 BMI result Body Mass Index 27.9 Const General: cooperative, healthy appearing and comfortable Nutritional Appearance: overweight Orientation/consciousness: patient oriented x3 Limitations: no limitations Resp Effort & Inspection: normal respiratory effort and able to speak in complete sentences Skin General skin exam: no rashes or lesions noted Neuro General: patient oriented x3 Extrem Other: Bilateral knees, tenderness to palpation at the medial joint line Bilateral knee pain with any minimal flexion Assessment & Plan Assessment & Plan (1) Osteoarthritis of knees, bilateral: Code(s): M17.0 - Bilateral primary osteoarthritis of knee Qualifiers: Osteoarthritis type: primary Qualified Code(s): M17.0 - Bilateral primary osteoarthritis of knee Plan: This is a 62-year-old female with generalized osteoarthritis who presents for follow-up. Patient used to take tramadol in the past. Patient abruptly discontinued the tramadol and suffered some withdrawal symptoms. She has through the withdrawal symptoms and feels that it was not helping her much. She continues to take NSAIDs. Currently she takes Aleve a total of 880 mg daily. She has significant bilateral knee pain worse with standing and walking. She was evaluated by Dr. Barrera and received a steroid injection which she reports only provided minimal relief. I explained to patient that at this point we do not have many medical options for knee osteoarthritis. Tylenol isn't effective, she does not want to be on any pain medication. She uses NSAIDs and topical Voltaren gel. I suggested trying Salonpas patches. Advised patient to follow-up with Dr. Barrera 3 months after her last visit with him to consider a repeat injection. Patient has been taking NSAIDs consistently for years. Most recent creatinine 1.33. Will repeat the function test Plan I spent 26 minutes reviewing patient's chart, evaluating patient, ordering diagnostic workup, counseling patient and documenting in the chart Orders: Orders Basic Metabolic Panel Today M17.0 - Bilateral primary osteoarthritis of knee Coding Level of Care Code Est Pt Level 4 (60910) Diagnoses Osteoarthritis of knees, bilateral M17.0 Osteoarthritis type: primary
[2023-02-01 15:11] VITALS: BP 126/78; PULSE 75; TEMP 36.4; O2SAT 97; BMI 27.9
== END 2023-02-01 15:53 | disposition home or self-care (01) ==
PROVIDERS: PCP Internal Medicine; Visit Provider Student in an Organized Health Care Education/Training Program
DX: M17.0 Bilateral primary osteoarthritis of knee (principal)
CPT/HCPCS: 99214

== ENCOUNTER → 2023-02-01 15:00 | Outpatient (BNVA) | payer OTHER, SELFPAY | PROVIDERS: PCP Internal Medicine; Visit Provider Student in an Organized Health Care Education/Training Program ==

== ENCOUNTER 2023-02-23 09:02 | Emergency (ER) | payer OTHER, SELFPAY ==
--- NOTE | ~2023-02-23 | US_ITS ---
EXAMINATION: US VENOUS ULTRASOUND WITH DOPPLER LOWER EXTREMITY, RIGHT CLINICAL INFORMATION: Calf pain and foot swelling COMPARISON: None available. TECHNIQUE: Ultrasound of the deep veins is performed from the hip to the calf with compression sonography and color and pulse Doppler assessment. Spectral analysis with color-flow imaging is performed. FINDINGS: There is normal venous compression and respiratory variation and augmented flow. The visualized common femoral vein, superficial femoral vein, profunda femoral vein, popliteal vein, and the trifurcation region shows no evidence of deep venous thrombosis. Right popliteal fossa cyst measuring 5.0 x 0.9 x 2.6 cm with septation. If the patient's symptoms persist, followup ultrasound in 5 days 7 days might be of value to exclude proximal propagation from a non-visualized calf vein. US/US venous duplex LE RT IMPRESSION: 1. No DVT demonstrated in the right lower extremity. 2. Right popliteal fossa cyst measuring 5.0 x 0.9 x 2.6 cm with septation.
--- NOTE | ~2023-02-23 | XR_ITS ---
EXAMINATION: XR KNEE, RIGHT CLINICAL INFORMATION: Pain and swelling COMPARISON: Bilateral standing knee radiographs from 10/06/2021 TECHNIQUE: 6 views of the right knee. FINDINGS: Redemonstration of medial collateral ligamentous injury of the right knee. No acute visible fracture or dislocation. Multicompartment arthritic changes. Mild narrowing of the medial femorotibial compartment. Periarticular osteophytes along the superior inferior margins of the patella. Joint spaces and alignment are otherwise maintained. No large knee joint effusion. Soft tissues are unremarkable. XR/XR knee RT 4V IMPRESSION: 1. No acute visible fracture or dislocation. 2. Redemonstration of medial collateral ligamentous injury of the right knee. 3. Multicompartment arthritic changes.
[2023-02-23 09:06] VITALS: BP 150/89; PULSE 89; RESP 18; TEMP 36.8; O2SAT 99; BMI 27.1
--- NOTE | 2023-02-23 09:27 | ED_ITS ---
HPI - Extremity Problem General Chief complaint: Extremity Injury, Lower Stated complaint: R knee pain Time Seen by Provider: 02/23/23 09:08 Source: patient Mode of arrival: ambulatory Limitations: no limitations History of Present Illness HPI Narrative: 62 yo female with history of osteoarthritis, spinal stenosis, chronic pain syndrome who presents to the ER for evaluation of worsening right knee pain last 5 or 6 weeks. She states the pain has increased to the point where she is having difficulty walking and bending the knee. She has been taking anti- inflammatories and using ice several times per day. 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 She denies any twisting injuries or falls. she states the pain at times radiates down to the lower leg and is shooting pain. She did have some swelling in the right foot a couple of weeks ago that self-resolved. She denies any chest pain or shortness of breath. No redness of the knee or warmth. She follows with orthopedics here and has had joint injections a few times. She has had surgery on the left knee in the past and was told that she may need a right knee replacement and that it was [id number]. MD Complaint: joint pain Onset (ago): week(s) (6) Pain Consistency: constant Location: right and knee Severity scale (1-10): 8 Quality: sharp Radiation: distal Relieving factors: immobilization and rest Exacerbating factors: range of motion, weight bearing and palpation Associated symptoms: denies other symptoms Related Data Home Medications Medication Instructions Recorded Confirmed fluticasone propionate 50 1 spray intranasal DAILY 04/07/20 07/17/22 mcg/actuation nasal spray,suspension antiarthritic combination no.2 900 mg PO DAILY 06/28/21 07/17/22 mg tablet (glucosamine-chondroitin) biotin 10,000 mcg capsule mcg PO 07/17/22 07/17/22 cholecalciferol (vitamin D3) 125 125 mcg PO DAILY 07/17/22 07/17/22 mcg (5,000 unit) capsule cyanocobalamin (vitamin B-12) 5,000 mcg PO DAILY 07/17/22 07/17/22 5,000 mcg capsule Previous Rx's Medication Instructions Recorded clobetasol 0.05 % topical cream 1 appl topical DAILY 1 week #45 12/19/21 grams estradiol 0.01% (0.1 mg/gram) See Rx Instructions .Route DAILY 03/21/22 vaginal cream 30 days #42.5 grams mirabegron 50 mg tablet,extended 50 mg PO DAILY #90 tabs 11/30/22 release 24 hr (Myrbetriq) Allergies Allergy/AdvReac Type Severity Reaction Status Date / Time sulfamethoxazole Allergy Intermediate N/V Verified 02/01/23 15:16 [From BACTRIM] trimethoprim [From BACTRIM] Allergy Intermediate N/V Verified 02/01/23 15:16 Sulfa (Sulfonamide Allergy Unknown diarrhea Verified 02/01/23 15:16 Antibiotics) gabapentin Allergy swelling Verified 02/01/23 15:16 of hands and feet acetaminophen [Percocet] AdvReac Unknown stomach Verified 02/01/23 15:16 upset oxycodone [Percocet] AdvReac Unknown stomach Verified 02/01/23 15:16 upset From PERCOCET Allergy Severe INABILITY Uncoded 02/01/23 15:16 TO URINATE,VOMITING Review of Systems Review of Systems: Yes all other systems are reviewed and are negative PMFSH Past Medical History Medical History Chronic pain syndrome Hammer toe Osteoarthritis, generalized Spinal stenosis of lumbar region Surgical History H/O knee surgery H/O laminectomy H/O toe surgery H/O: hysterectomy S/P discectomy for herniated nucleus pulposus Family History Family History Father Heart disease Stroke Maternal Grandfather Stroke Paternal Uncle Cancer Social History Social History Alcohol intake: current Alcohol intake frequency: holidays/special occasions only Patient Tobacco Use Status: Former Tobacco user Tobacco use type: Cigarette Years Smoked: stopped few months ago Advance Directives: No Advance Directives Information Provided: No Physical Exam Vital Signs: Vital Signs: Last Vital Signs Temp 98.3 F 02/23/23 09:06 Pulse 64 02/23/23 11:22 Resp 16 02/23/23 11:22 BP 148/74 H 02/23/23 11:22 Pulse Ox 100 02/23/23 11:22 O2 Del Method Room Air 02/23/23 11:22 BMI result Body Mass Index 27.1 Appearance: Alert. Oriented X3. No acute distress. HEENT: normal inspection CVS: Normal heart rate and rhythm. Pulses normal. Respiratory: No respiratory distress. Skin: Skin warm and dry. Normal skin color. Normal skin turgor. No rashes. Extremities: superficial scabbing to the skin of the proximal lower leg consistent with a superficial burn. Mild generalized swelling of the right knee. Normal full extension with pain upon passive flexion once at 45 degrees. Pain is severe. Unable to assess for joint laxity due to discomfort. Mild tenderness in the posterior calf without any significant swelling or erythema. No ankle swelling or erythema. Neuro: Oriented X 3. No motor deficit. No sensory deficit. Antalgic gait Medical Decision Making Medical Decision Making MDM Narrative: 62-year-old female presenting to the ER for evaluation of worsening right knee pain for the last several weeks. No new trauma. Known osteoarthritis. Minimal relief with conservative measures at home. She has an orthopedist here as well as at [facility] in the past. X-ray today showed multi compartmental arthritis. No effusion. Given the radiation of pain distally and tenderness in the calf an ultrasound was also performed to rule out blood clot. This showed no DVT but did show a new Desir's cyst. This could be contributing to some of the pain. She was placed in Magnus wrap for compression and support. She was encouraged follow-up with her primary care doctor as well as orthopedist for further evaluation and treatment of her pain. She is seeing pain management with plan to get a nerve block. She does not want to go back on opiates, she states tramadol was not effective. She will continue NSAIDs, rest, ice. Crutches provided. Stable for discharge home. Differential Diagnosis Differential Diagnoses: The differential diagnosis associated with the presentation includes worsening osteoarthritis, inflammatory arthritis, ligamentous injury, no evidence of septic joint or gout Independent Interpretation I performed an independent interpretation of an: Plain X-Ray and Ultrasound Interpretation: xr without acute fractures or large effusion, agree w/ radiology read U/S without visible DVT, agree w/ radiology read Radiology Impression Discussion of test interpretation with radiology: I have reviewed the radiologist's reading. Radiologist Impression: EXAMINATION: XR KNEE, RIGHT? CLINICAL INFORMATION: Pain and swelling? COMPARISON: Bilateral standing knee radiographs from 10/06/2021? TECHNIQUE: 6 views of the right knee. FINDINGS: Redemonstration of medial collateral ligamentous injury of the right knee. No acute visible fracture or dislocation. Multicompartment arthritic changes. Mild narrowing of the medial femorotibial compartment. Periarticular osteophytes along the superior inferior margins of the patella. Joint spaces and alignment are otherwise maintained. No large knee joint effusion. Soft tissues are unremarkable.? XR/XR knee RT 4V IMPRESSION: 1.? No acute visible fracture or dislocation. 2.? Redemonstration of medial collateral ligamentous injury of the right knee. 3.? Multicompartment arthritic changes. EXAMINATION:? US VENOUS ULTRASOUND WITH DOPPLER LOWER EXTREMITY, RIGHT CLINICAL INFORMATION:? Calf pain and foot swelling COMPARISON:? None available. TECHNIQUE: Ultrasound of the deep veins is performed from the hip to the calf with compression sonography and color and pulse Doppler assessment. Spectral analysis with color-flow imaging is performed. FINDINGS: There is normal venous compression and respiratory variation and augmented flow. The visualized common femoral vein, superficial femoral vein, profunda femoral vein, popliteal vein, and the trifurcation region shows no evidence of deep venous thrombosis. ? Right popliteal fossa cyst measuring 5.0 x 0.9 x 2.6 cm with septation. If the patient's symptoms persist, followup ultrasound in 5 days 7 days might be of value to exclude proximal propagation from a non-visualized calf vein. US/US venous duplex LE RT IMPRESSION: 1.? No DVT demonstrated in the right lower extremity. 2.? Right popliteal fossa cyst measuring 5.0 x 0.9 x 2.6 cm with septation. External Record Review External record reviewed: Office record, Outpatient record, Prior outpatient labs and Prior outpatient radiology Prescription Management I considered prescription management with: Pain Medication Chronic Conditions Patient?s care impacted by: Other (OA) Critical Care Time Critical Care Time Critical Care Time: No Discharge Plan Discharge Clinical Impression: Desir's cyst, Osteoarthritis of right knee Patient Disposition: Home, Self-Care Instructions: Osteoarthritis (DC), Bakers Cyst (ED) Additional Instructions: Follow up with Orthopedics Use crutches and rest the knee the next few days, then bear weight as tolerated Take NSAIDS and tylenol as needed for pain. EXAMINATION:? US VENOUS ULTRASOUND WITH DOPPLER LOWER EXTREMITY, RIGHT CLINICAL INFORMATION:? Calf pain and foot swelling COMPARISON:? None available. TECHNIQUE: Ultrasound of the deep veins is performed from the hip to the calf with compression sonography and color and pulse Doppler assessment. Spectral analysis with color-flow imaging is performed. FINDINGS: There is normal venous compression and respiratory variation and augmented flow. The visualized common femoral vein, superficial femoral vein, profunda femoral vein, popliteal vein, and the trifurcation region shows no evidence of deep venous thrombosis. ? Right popliteal fossa cyst measuring 5.0 x 0.9 x 2.6 cm with septation. If the patient's symptoms persist, followup ultrasound in 5 days 7 days might be of value to exclude proximal propagation from a non-visualized calf vein. US/US venous duplex LE RT IMPRESSION: 1.? No DVT demonstrated in the right lower extremity. 2.? Right popliteal fossa cyst measuring 5.0 x 0.9 x 2.6 cm with septation. EXAMINATION: XR KNEE, RIGHT? CLINICAL INFORMATION: Pain and swelling? COMPARISON: Bilateral standing knee radiographs from 10/06/2021? TECHNIQUE: 6 views of the right knee. FINDINGS: Redemonstration of medial collateral ligamentous injury of the right knee. No acute visible fracture or dislocation. Multicompartment arthritic changes. Mild narrowing of the medial femorotibial compartment. Periarticular osteophytes along the superior inferior margins of the patella. Joint spaces and alignment are otherwise maintained. No large knee joint effusion. Soft tissues are unremarkable.? XR/XR knee RT 4V IMPRESSION: 1.? No acute visible fracture or dislocation. 2.? Redemonstration of medial collateral ligamentous injury of the right knee. 3.? Multicompartment arthritic changes. Prescriptions: No Action fluticasone propionate 50 mcg/actuation spray,suspension 1 spray intranasal DAILY Rx Instructions: administer into each nostril glucosamine-chondroitin 900 mg tablet PO DAILY clobetasol 0.05 % cream 1 appl topical DAILY 7 Days Qty: 45 1RF Rx Instructions: Then maintenance therapy for 2-3 times per week estradiol 0.01 % (0.1 mg/gram) cream See Rx Instructions .Route DAILY 30 Days Qty: 42.5 2RF Rx Instructions: apply thin coat daily cholecalciferol (vitamin D3) 125 mcg (5,000 unit) capsule 125 mcg PO DAILY cyanocobalamin (vitamin B-12) 5,000 mcg capsule 5,000 mcg PO DAILY biotin 10,000 mcg capsule PO Myrbetriq 50 mg tablet extended release 24 hr 50 mg PO DAILY Qty: 90 3RF Ref[place]: [facility] [place] Group] Johann Cunningham MD [Primary Care Provider] - Stand Alone Forms: Work/School Release Interventions: ED Discharge Assessment Last Done: 02/23/23 11:37 Discharge Date/Time: 02/23/23 11:37
[2023-02-23 11:22] VITALS: BP 148/74; PULSE 64; RESP 16; O2SAT 100
== END 2023-02-23 11:37 | disposition home or self-care (01) ==
PROVIDERS: Emergency Provider Emergency Medicine; PCP Internal Medicine
DX: M71.21 Synovial cyst of popliteal space [Baker], right knee (principal); R60.0 Localized edema; M25.561 Pain in right knee
CPT/HCPCS: 73564; 93971; 99283; 99284

== ENCOUNTER 2023-04-06 12:12 | Outpatient (REF) | payer OTHER, SELFPAY ==
--- NOTE | ~2023-04-06 | XR_ITS ---
EXAMINATION: XR HIP, LEFT CLINICAL INFORMATION: Left hip pain COMPARISON: 09/29/2021 left hip. 02/04/2020 8P pelvis and right hip. TECHNIQUE: AP view of the pelvis and 2 views of the left hip. FINDINGS: Degenerative changes in the imaged lower lumbar spine. Moderate degenerative changes in bilateral sacroiliac joints. Small rounded pelvic calcifications are characteristic of phleboliths. Mild to moderate degenerative changes in the left hip with superior joint space narrowing and lateral acetabular hypertrophic change. Minimal degenerative changes right hip. Left hip alignment preserved. XR/XR hip LT w PEL1V IMPRESSION: Mild to moderate degenerative changes left hip. Additional imaging with CT scan or MRI should be considered for better visualization as these modalities are much more sensitive for detection of fracture or other underlying pathology.
[2023-04-06 13:09] LABS: MANUAL DIFF FLAG NO
[2023-04-06 13:45] LABS: Basophils Absolute Auto 0.1 X10*3/uL (0.0-0.2); Basophils Percent Auto 0.7 % (0-2); Eosinophils Absolute Auto 0.1 X10*3/uL (0.0-0.4); Eosinophils Percent Auto 1.5 % (0-4); Hematocrit 39.4 % (37.0-47.0); Hemoglobin 12.9 g/dl (12.0-16.0); Imm Gran Abs Auto 0.02 X10*3/uL (0.00-0.03); Imm Gran Pct Auto 0.3 % (0.0-0.4); Lymphocytes Absolute Auto 1.6 X10*3/uL (1.2-4.9); Lymphocytes Percent Auto 23.3 % (20-40); Mean Corpuscular HGB Conc 32.7 g/dl (31.0-35.0); Mean Corpuscular Hemoglobin 31.9 pg (27.0-33.0); Mean Corpuscular Volume 97.5 fL (80.0-98.0); Mean Platelet Volume 10.9 fL (9.4-12.3); Monocytes Absolute Auto 0.4 X10*3/uL (0.1-1.2); Neutrophils Absolute Auto 4.7 x10*3/uL (2.0-8.3); Neutrophils Percent Auto 68.2 % (45-73); Platelet Count 236 X10*3/uL (160-400); Red Blood Count 4.04 X10*6/uL (4.20-5.50); Red Cell Distribution Width 12.1 % (11.0-16.0); White Blood Count 6.9 X10*3/uL (4.8-10.8)
[2023-04-06 14:43] LABS: Alanine Aminotransferase 14 U/L (0-31); Albumin Level 4.6 g/dL (3.5-5.0); Alkaline Phosphatase 58 U/L (39-117); Anion Gap 15 (12-20); Aspartate Amino Transferase 16 U/L (5-31); Bilirubin Total 0.3 mg/dL (0.0-1.0); Blood Urea Nitrogen 31 mg/dL (9-16); Calcium 9.7 mg/dL (8.4-10.2); Carbon Dioxide 23 mmol/L (22-29); Chloride 105 mmol/L (96-108); Estimated Glomerular Filt Rate > 60; Glucose Random 91 mg/dL (60-115); Potassium 3.9 mmol/L (3.3-5.1); Sodium 139 mmol/L (135-145); Total Protein 6.9 g/dL (6.5-8.0)
== END 2023-04-06 12:13 | disposition home or self-care (01) ==
LOC: HO.XRAY 12:12
PROVIDERS: PCP Internal Medicine; Visit Provider Internal Medicine
DX: M25.552 Pain in left hip (principal); M19.041 Primary osteoarthritis, right hand
CPT/HCPCS: 36415; 73502; 80053; 85025

== ENCOUNTER 2023-04-30 06:00 | Outpatient (REF) | payer OTHER, SELFPAY ==
[2023-04-30 06:13] LABS: MANUAL DIFF FLAG NO
[2023-04-30 07:40] LABS: Basophils Absolute Auto 0.1 X10*3/uL (0.0-0.2); Basophils Percent Auto 0.9 % (0-2); Eosinophils Absolute Auto 0.1 X10*3/uL (0.0-0.4); Eosinophils Percent Auto 1.5 % (0-4); Hematocrit 44.9 % (37.0-47.0); Hemoglobin 14.6 g/dl (12.0-16.0); Imm Gran Abs Auto 0.02 X10*3/uL (0.00-0.03); Imm Gran Pct Auto 0.3 % (0.0-0.4); Lymphocytes Absolute Auto 1.3 X10*3/uL (1.2-4.9); Lymphocytes Percent Auto 18.7 % (20-40); Mean Corpuscular HGB Conc 32.5 g/dl (31.0-35.0); Mean Corpuscular Hemoglobin 32.6 pg (27.0-33.0); Mean Corpuscular Volume 100.2 fL (80.0-98.0); Mean Platelet Volume 10.7 fL (9.4-12.3); Monocytes Absolute Auto 0.5 X10*3/uL (0.1-1.2); Monocytes Percent Auto 6.7 % (2-11); Neutrophils Absolute Auto 4.8 x10*3/uL (2.0-8.3); Neutrophils Percent Auto 71.9 % (45-73); Platelet Count 260 X10*3/uL (160-400); Red Blood Count 4.48 X10*6/uL (4.20-5.50); Red Cell Distribution Width 12.6 % (11.0-16.0); White Blood Count 6.7 X10*3/uL (4.8-10.8)
[2023-04-30 08:38] LABS: Alanine Aminotransferase 14 U/L (0-31); Albumin Level 4.6 g/dL (3.5-5.0); Alkaline Phosphatase 69 U/L (39-117); Anion Gap 14 (12-20); Aspartate Amino Transferase 16 U/L (5-31); Bilirubin Total 0.5 mg/dL (0.0-1.0); Blood Urea Nitrogen 21 mg/dL (9-16); Carbon Dioxide 25 mmol/L (22-29); Chloride 105 mmol/L (96-108); Cholesterol 243 mg/dL (<200); Estimated Glomerular Filt Rate > 60; Glucose Fasting 102 mg/dL (60-99); HDL Cholesterol 69 mg/dL (>40); LDL Cholesterol Calculated 156 mg/dL (<100); Potassium 4.3 mmol/L (3.3-5.1); Sodium 140 mmol/L (135-145); Total Protein 7.3 g/dL (6.5-8.0); Triglycerides 91 mg/dL (<150)
== END 2023-04-30 06:01 | disposition home or self-care (01) ==
LOC: HO.LAB 06:00
PROVIDERS: PCP Internal Medicine; Visit Provider Internal Medicine
DX: K21.9 Gastro-esophageal reflux disease without esophagitis (principal); E78.00 Pure hypercholesterolemia, unspecified; G47.00 Insomnia, unspecified; R00.2 Palpitations; Z82.49 Family history of ischemic heart disease and other diseases of the circulatory system
CPT/HCPCS: 36415; 80053; 80061; 85025

== ENCOUNTER 2023-05-03 07:16 | Outpatient (REF) | payer OTHER, SELFPAY ==
--- NOTE | ~2023-05-03 | CT_ITS ---
EXAMINATION: CT HIP WITHOUT CONTRAST, LEFT CLINICAL INFORMATION: Left hip pain. COMPARISON: Radiograph dated 04/06/2023 TECHNIQUE: Multidetector volumetric imaging was obtained through the left hip without contrast material. Multiplanar reformatted images were submitted in coronal and sagittal planes. This CT examination was performed using dose optimization techniques as appropriate, variously including the following: *Automated exposure control *Adjustment of mA and/or kV according to patient size (this includes techniques or standardized protocols for targeted exams where dose is matched to indication/reason for exam; i.e. extremities or head) *Use of iterative reconstruction technique DLP: 379 mGy-cm FINDINGS: Mild osteoarthritis in the left hip is characterized by marginal osteophytes, nonuniform joint space narrowing, and articular cortical irregularity at the acetabular roof. No erosions. No fracture or malalignment in the left proximal femur and imaged portion of the innominate bone. Bone mineralization appears normal. No osseous lesions. Enthesopathic spurring is present at the left gluteus minimus tendon insertion on the greater trochanter. There is moderate atrophy and fatty replacement of the gluteus minimus muscle. Tendinosis is suspected at the gluteus medius. Musculature is otherwise unremarkable at the left hip. No hip joint effusion. Imaged intrapelvic soft tissues are unremarkable. No adenopathy. CT/CT hip LT wo IV con IMPRESSION: No acute fracture or malalignment at the left hip. Mild osteoarthritis in the left hip. Moderate atrophy and fatty replacement of the gluteus minimus muscle. Tendinosis is suspected at the gluteus medius.
== END 2023-05-03 07:17 | disposition home or self-care (01) ==
LOC: HO.CT 07:16
PROVIDERS: PCP Internal Medicine; Visit Provider Internal Medicine
DX: M25.552 Pain in left hip (principal)
CPT/HCPCS: 73700

== ENCOUNTER 2023-07-06 11:33 | Outpatient (AMB) | payer OTHER, SELFPAY ==
--- NOTE | 2023-07-06 11:39 | A.OFFVIS_ITS ---
Intake Intake Visit Reasons: 6m/cystocele/pessary/OAB/vaginal atrophy Intake Note: Patient presents today for a follow-up on Cystocele, Pessary, OAB & Vaginal Atrophy: Meds- Estradiol & Myrbetriq Allergies to Antibiotic- Sulfamethoxazole Blood Thinner- None [employer] Employment [employer] Required: No Accompanied by: Self / Same As Patient Allergies sulfamethoxazole [From BACTRIM] Allergy (Intermediate, Verified 07/06/23 11:43) N/V trimethoprim [From BACTRIM] Allergy (Intermediate, Verified 07/06/23 11:43) N/V Sulfa (Sulfonamide Antibiotics) Allergy (Unknown, Verified 07/06/23 11:43) diarrhea gabapentin Allergy (Verified 07/06/23 11:43) swelling of hands and feet acetaminophen [Percocet] Adverse Reaction (Unknown, Verified 07/06/23 11:43) stomach upset oxycodone [Percocet] Adverse Reaction (Unknown, Verified 07/06/23 11:43) stomach upset From PERCOCET Allergy (Severe, Uncoded 07/06/23 11:43) INABILITY TO URINATE,VOMITING Medication List - Last Reconciled 07/06/23 by Nick Nunez MD antiarthritic combination no.2 (glucosamine-chondroitin) mg PO DAILY biotin mcg PO cholecalciferol (vitamin D3) 125 mcg PO DAILY clobetasol 0.05% 1 appl topical DAILY 1 week cyanocobalamin (vitamin B-12) 5,000 mcg PO DAILY estradiol 0.01%(0.1mg/gram) apply thin coat daily 30 days fluticasone propionate 50 mcg/actuation 1 spray intranasal DAILY mirabegron ER (Myrbetriq) 50 mg PO DAILY HPI HPI Comments History of Present Illness Details 07/06/23--Sweta is a 62-year-old female w ho presents to the office for 6-months follow-up for cystocele with pe ssary maintenance, OAB and pelvic floor weakness. She states that she had knee surgery 6 weeks ago, she states that the pessary kept dropping low so she removed it and has recently put it back in about 3-4 days. She has been doing kegels. Evaluation today-- UA - no signs of infection Review of chart 11/30/22-- The patient was last seen on 05/25/22. She states she has been managing the pessary, and is able to remove and clean it. States having frequent voiding episodes and irritated skin due to wiping. The patient mentions occasional urinary episodes after every hour or two. Mentions drinking adequate amount of water. At once occasion the patient had episodes of nocturia every hour or 20 minutes. Has nocturia episodes which she links with increased fluid consumption during the day. The patient is using estradiol cream. 07/06/23--Plan: Cont Myrbetriq 50 mg QD Follow-up after 6 months or sooner if needed. [facility] Medical History Chronic pain syndrome Hammer toe Osteoarthritis, generalized Spinal stenosis of lumbar region Surgical History H/O knee surgery H/O laminectomy H/O toe surgery H/O: hysterectomy S/P discectomy for herniated nucleus pulposus Family History Father Heart disease Stroke Maternal Grandfather Stroke Paternal Uncle Cancer Social History Alcohol intake: current Alcohol intake frequency: holidays/special occasions only Patient Tobacco Use Status: Former Tobacco user Tobacco use type: Cigarette Years Smoked: stopped few months ago Review of Systems Const All systems reviewed & are unremarkable except as noted in HPI and below Reports no additional complaints Eyes Reports no additional complaints ENT Reports no additional complaints Card Denies dyspnea Resp Denies cough and Denies dyspnea GI Reports no additional complaints Reports no additional complaints Musc Reports no additional complaints Skin/Breast Denies rash and Denies unusual bruising Neuro Reports no additional complaints Psych Reports no additional complaints Endo Reports no additional complaints Ba/Lymph Reports no additional complaints Aller/Immun Reports no additional complaints Results AMB Urinalysis, Automated UA Leukoctes 0 Ana/uL Last Edit by CARIE Sellers on 07/06/23 14:21 UA Nitrite Negative Last Edit by Hubert Prieto Chris on 07/06/23 14:21 UA Urobilinogen 0.2 mg/dL Last Edit by Hubert Prieto Chris on 07/06/23 14:2 1 UA Protein 30 mg/dL Last Edit by Hubert Prieto Chris on 07/06/23 14:21 1+ Hubert Prieto 07/06/23 14:21 UA pH 5.5 Last Edit by Hubert Prieto Chris on 07/06/23 14:21 UA Blood 0 Carlos/uL Last Edit by Hubert Prieto Chris on 07/06/23 14:21 UA Specific [place] 1.030 Last Edit by CARIE Sellers on 07/06/23 14: 21 UA Ketone Positive Last Edit by Hubert Prieto Chris on 07/06/23 14:21 5 mg/dL Hubert Prieto 07/06/23 14:21 UA Bilirubin 0 mg/dL Last Edit by Hubert Prieto Chris on 07/06/23 14:21 UA Glucose 0 mg/dL Last Edit by Hubert Prieto [facility] on 07/06/23 14:21 Results Reviewed Results Reviewed: Laboratory Last Values Urine pH (Auto) 5.5 07/06/23 14:18 Specific [place] (Auto) 1.030 07/06/23 14:18 Urine Protein (Auto) 30 mg/dL 07/06/23 14:18 Glucose (UA)(Auto) 0 mg/dL 07/06/23 14:18 Urine Ketones (Auto) Positive 07/06/23 14:18 Urine Blood (Auto) 0 Carlos/uL 07/06/23 14:18 Urine Nitrite (Auto) Negative 07/06/23 14:18 Urine Bilirubin (Auto) 0 mg/dL 07/06/23 14:18 Urine Urobilinogen (Auto) 0.2 mg/dL 07/06/23 14:18 Leukocyte Esterase (Auto) 0 Ana/uL 07/06/23 14:18 Assessment & Plan Assessment & Plan (1) Urge incontinence of urine: Code(s): N39.41 - Urge incontinence (2) JAMEL (stress urinary incontinence, female): Code(s): N39.3 - Stress incontinence (female) (male) (3) Cystocele: (4) Pelvic floor weakness: Code(s): N81.89 - Other female genital prolapse Plan Cont Myrbetriq 50 mg QD Follow-up after 6 months or sooner if needed. Orders: Orders AMB Urinalysis Automated 07/06/23 Z13.9 - Encounter for screening, unspecified Medications: Refilled mirabegron ER (Myrbetriq) 50 mg PO DAILY 90 tabs 3RF Patient Instructions: The patient had an opportunity to ask questions regarding treatment plan. All questions were answered. Laboratory studies were discussed and reviewed in detail. No major barriers to understanding were identified. The patient expressed understanding and agreement with the above treatment plan. The patient is aware they should contact our office by phone for worsening of their current condition or the appearance of new symptoms. Compliance is encouraged with any medications and followup testing that is ordered. It is a privilege to be allowed the opportunity to participate in the urologic care of your patient. If you have any questions or concerns regarding treatment for the above conditions please do not hesitate to contact me. The office telephone contact is [phone]. This note is constructed in part using voice recognition software. While every effort has been made to ensure accuracy rewrite editor errors may have been included. Yours sincerely, Nick Nunez MD Coding Level of Care Code Est Pt Level 4 (06710) Diagnoses Urge incontinence of urine N39.41 JAMEL (stress urinary incontinence, female) N39.3 Cystocele Pelvic floor weakness N81.89
== END 2023-07-06 12:24 | disposition home or self-care (01) ==
PROVIDERS: PCP Internal Medicine; Visit Provider Urology
DX: N39.41 Urge incontinence (principal); N39.3 Stress incontinence (female) (male); N81.89 Other female genital prolapse
CPT/HCPCS: 99214

== ENCOUNTER → 2023-07-06 11:33 | Outpatient (BNVA) | payer OTHER, SELFPAY | PROVIDERS: PCP Internal Medicine; Visit Provider Urology | DX: N39.46 Mixed incontinence (principal); N81.10 Cystocele, unspecified; N81.89 Other female genital prolapse; Z79.899 Other long term (current) drug therapy | CPT/HCPCS: 81003 ==

== ENCOUNTER 2023-08-14 09:00 | Outpatient (RCR) | payer OTHER, SELFPAY | END 2023-09-07 08:25 | disposition home or self-care (01) | LOC: HO.PT 09:00 | PROVIDERS: PCP Internal Medicine; Visit Provider Orthopaedic Surgery | DX: Z96.651 Presence of right artificial knee joint (principal); Z98.890 Other specified postprocedural states | CPT/HCPCS: 97110; 97112; 97140; 97161 ==

== ENCOUNTER 2023-10-21 12:06 | Emergency (ER) | payer OTHER, SELFPAY ==
--- NOTE | ~2023-10-21 | CT_ITS ---
EXAMINATION: CT ABDOMEN AND PELVIS WITHOUT CONTRAST CLINICAL INFORMATION: Right flank pain COMPARISON: CT abdomen and pelvis 10/27/2015 TECHNIQUE: Multidetector volumetric imaging was performed from the superior aspect of the liver through the pubic symphysis. Sagittal and coronal reformatted images were obtained on the technologist's workstation. This CT examination was performed using dose optimization techniques as appropriate, variously including the following: *Automated exposure control *Adjustment of mA and/or kV according to patient size (this includes techniques or standardized protocols for targeted exams where dose is matched to indication/reason for exam; i.e. extremities or head) *Use of iterative reconstruction technique DLP: 641 mGy-cm FINDINGS: LUNG BASES: Unremarkable. ABDOMINAL AND PELVIC WALL: Unremarkable. LIVER AND BILIARY TREE: A 2.4 cm indeterminate hypoattenuating liver lesion in the posterior aspect of the right hepatic lobe for which further evaluation with nonemergent MR abdomen with and without contrast is recommended for delineation. GALLBLADDER: Cholelithiasis without evidence of acute cholecystitis. PANCREAS: Unremarkable. SPLEEN: Unremarkable. ADRENAL GLANDS: Unremarkable. KIDNEYS AND URETERS: No hemorrhage nephrosis or nephrolithiasis. GASTROINTESTINAL TRACT: Unremarkable. Normal appendix. VASCULAR: Atherosclerosis of the abdominal aorta. LYMPH NODES/PERITONEUM: No lymphadenopathy. FREE FLUID: None. BLADDER: Unremarkable. PELVIC VISCERA: Pessary device in the vagina. Status post hysterectomy. OSSEOUS STRUCTURES: Multilevel degenerative disc disease. Sclerotic lesion in the L4 vertebral body which may reflect a bone island. CT/CT abdomen pelvis wo IV con IMPRESSION: 1. No hydronephrosis or nephrolithiasis. 2. A 2.4 cm indeterminate hypoattenuating liver lesion in the posterior aspect of the right hepatic lobe for which further evaluation with nonemergent MR abdomen with and without contrast is recommended for delineation. 3. Cholelithiasis without evidence of acute cholecystitis.
[2023-10-21 12:22] VITALS: BP 162/89; PULSE 85; RESP 20; TEMP 36.2; O2SAT 99; BMI 26.5
--- NOTE | 2023-10-21 12:26 | ED_ITS ---
HPI - General Adult General Chief complaint: Back Pain/Injury Stated complaint: Lower back pain R side Time Seen by Provider: 10/21/23 12:34 Source: patient Mode of arrival: ambulatory History of Present Illness HPI narrative: 63-year-old female who reports off and on right flank pain since and then states that the latest episode started this afternoon with associated nausea but no fever chills/vomiting and no dysuria. Patient also states that she was working outside today when she felt a pop to the right side and then developed severe pain and has a history of laminectomy and diskectomy Related Data Home Medications ?Medication ?Instructions ?Recorded ?Confirmed fluticasone propionate 50 1 spray intranasal DAILY 04/07/20 07/06/23 mcg/actuation nasal spray,suspension antiarthritic combination no.2 900 mg PO DAILY 06/28/21 07/06/23 mg tablet (glucosamine-chondroitin) biotin 10,000 mcg capsule mcg PO 07/17/22 07/06/23 cholecalciferol (vitamin D3) 125 125 mcg PO DAILY 07/17/22 07/06/23 mcg (5,000 unit) capsule cyanocobalamin (vitamin B-12) 5,000 mcg PO DAILY 07/17/22 07/06/23 5,000 mcg capsule Previous Rx's ?Medication ?Instructions ?Recorded clobetasol 0.05 % topical cream 1 appl topical DAILY 1 week #45 12/19/21 grams estradiol 0.01% (0.1 mg/gram) See Rx Instructions .Route DAILY 03/21/22 vaginal cream 30 days #42.5 grams mirabegron 50 mg tablet,extended 50 mg PO DAILY #90 tabs 09/10/23 release 24 hr (Myrbetriq) ketorolac 10 mg tablet 10 mg PO Q6H PRN pain #20 tabs 10/21/23 Allergies Allergy/AdvReac Type Severity Reaction Status Date / Time sulfamethoxazole Allergy Intermediate N/V Verified 10/21/23 12:23 [From BACTRIM] trimethoprim [From BACTRIM] Allergy Intermediate N/V Verified 10/21/23 12:23 Sulfa (Sulfonamide Allergy Unknown diarrhea Verified 10/21/23 12:23 Antibiotics) gabapentin Allergy swelling Verified 10/21/23 12:23 of hands and feet acetaminophen [Percocet] AdvReac Unknown stomach Verified 10/21/23 12:23 upset oxycodone [Percocet] AdvReac Unknown stomach Verified 10/21/23 12:23 upset Review of Systems 2 Review of Systems: Pertinent positives and negatives as stated in [facility] Past Medical History Source: nursing notes reviewed Medical History Hammer toe Osteoarthritis, generalized Chronic pain syndrome Spinal stenosis of lumbar region Surgical History H/O toe surgery H/O laminectomy S/P discectomy for herniated nucleus pulposus H/O: hysterectomy H/O knee surgery Family History Family History Father Heart disease Stroke Maternal Grandfather Stroke Paternal Uncle Cancer Social History Social History Alcohol intake: current Alcohol intake frequency: holidays/special occasions only Patient Tobacco Use Status: Former Tobacco user Tobacco use type: Cigarette Years Smoked: stopped few months ago Smoked in Last 30 Days: Yes Use of substances other than those prescribed or required for medical reasons: No Advance Directives: No Advance Directives Information Provided: Yes Do you have a plan to hurt others: No Plan Patient : No Physical Exam ED Vital Signs: Vital Signs - 24 hr 10/21/23 12:22 10/21/23 12:44 10/21/23 14:30 Temperature 97.2 F 98.3 F 96.9 F Pulse Rate 85 62 Respiratory Rate 20 14 16 Blood Pressure 162/89 H 147/74 H 132/61 Pulse Oximetry 99 96 97 Oxygen Delivery Method Room Air Room Air Room Air 10/21/23 16:38 Temperature 98.0 F Pulse Rate 70 Respiratory Rate 18 Blood Pressure 159/67 H Pulse Oximetry 98 Oxygen Delivery Method Room Air BMI result Body Mass Index 26.5 VITAL SIGNS: Reviewed. GENERAL: Well developed, well nourished, in no acute distress. HEAD: Normocephalic/atraumatic EYES: PERRLA, EOMI EARS: Ext canals without abnormality NOSE: Nares patent bilateral OROPHARYNX: no oral lesions noted, posterior pharynx clear NECK: Supple, no adenopathy LUNGS: Normal breath sounds. No adventitious sounds or accessory muscle use. SpO2<96> CARDIOVASCULAR: Regular rate and rhythm without noted murmurs ABDOMEN: Soft, non-tender, non-distended with bowel sounds. MUSCULOSKELETAL: No tenderness, deformities, or effusions noted on gross inspection. EXTREMITIES: No cyanosis, clubbing or edema. SKIN: Inspection of the skin reveals no rashes NEUROLOGIC: Alert and oriented x 4. Strength and sensation to light touch were grossly intact x 4. Course Course Course Narrative: RME: 63 yold female presents to the ED for right flank and back pain immeidatley while litting branches. patient heard popping in right side of back suddenly. Negative for spine tenderness. Positive for right flank tenderness on palpation. UA labs ordered. Fluids ordered. Patient brought to the ED immediately Medications Administered Discontinued Medications Generic Name Dose Route Start Last Admin Trade Name Freq PRN Reason Stop Dose Admin Sodium Chloride 1,000 mls @ 999 mls/hr 10/21/23 12:25 10/21/23 14:30 Ns IV 10/21/23 13:25 Infused .Q1H1M STA Infusion Sodium Chloride 1,000 mls @ 999 mls/hr 10/21/23 13:00 10/21/23 14:58 Ns IV 10/21/23 14:00 Infused .Q1H1M ASTRID Infusion Ketorolac Tromethamine 15 mg 10/21/23 12:49 10/21/23 13:03 Ketorolac Tromethamine 30 Mg/Ml Vial IVPUSH 10/21/23 12:50 15 mg ONCE ONE Administration Ketorolac Tromethamine 15 mg 10/21/23 16:01 10/21/23 16:32 Ketorolac Tromethamine 30 Mg/Ml Vial IVPUSH 10/21/23 16:02 15 mg ONCE ONE Administration Lidocaine 1 patch 10/21/23 16:00 10/21/23 16:32 Lidocaine 4 % Patch Adh..Patch TRANSDERMA 10/21/23 16:01 1 patch ONCE ONE Administration Protocol Ondansetron HCl 4 mg 10/21/23 12:49 10/21/23 13:03 Ondansetron Hcl 4 Mg/2 Ml Vial IVPUSH 10/21/23 12:50 4 mg ONCE ONE Administration Medical Decision Making Medical Decision Making MDM Narrative: 63-year-old female with history and clinical presentation, DDX: Renal colic, UTI, pyelonephritis, musculoskeletal, no concerns for cauda equina or cord compression at this time. INTERVENTION: IV fluids, Zofran, Toradol I reviewed all investigations and hematologic indices are negative for leukocytosis/anemia/thrombocytopenia. Chemistry indices negative for JL/electrolyte or liver enzyme derangements. Urinalysis negative for UTI or hematuria. On re-evaluation patient reports that she feels somewhat better in terms of her pain, does not appear that she has renal colic, pain is primarily in the back without lower extremity involvement. CT scan without significant findings, no gross findings on vertebral bodies. Patient is feeling mildly better after the Toradol and will be sent home with a prescription, she understands that I will be giving her 2 days off from work and she can make arrangements for physical therapy as well as back evaluation. Differential Diagnosis Differential Diagnoses: The differential diagnosis associated with the presentation includes Please see the discussion above Admission/Observation Consideration of admission/observation: Escalation of care including admission/observation considered Please see the discussion above Lab Data MDM Lab Attestation statement: I reviewed the patient's lab results. Please see the discussion above 10/21/23 12:55 10/21/23 12:55 Labs: Lab Results 10/21/23 10/21/23 Range/Units 12:55 13:30 WBC 6.9 (4.8-10.8) X10*3/uL RBC 4.00 L (4.20-5.50) X10*6/uL Hgb 12.8 (12.0-16.0) g/dl Hct 39.1 (37.0-47.0) % MCV 97.8 (80.0-98.0) fL MCH 32.0 (27.0-33.0) pg MCHC 32.7 (31.0-35.0) g/dl RDW 13.2 (11.0-16.0) % Plt Count 230 (160-400) X10*3/uL MPV 10.1 (9.4-12.3) fL Immature Gran % (Auto) 0.3 (0.0-0.4) % Neut % (Auto) 72.1 (45-73) % Lymph % (Auto) 19.6 L (20-40) % Allen % (Auto) 4.9 (2-11) % Eos % (Auto) 2.2 (0-4) % Baso % (Auto) 0.9 (0-2) % Lymph # (Auto) 1.4 (1.2-4.9) X10*3/uL Allen # (Auto) 0.3 (0.1-1.2) X10*3/uL Eos # (Auto) 0.2 (0.0-0.4) X10*3/uL Baso # (Auto) 0.1 (0.0-0.2) X10*3/uL Abs Immat Gran (auto) 0.02 (0.00-0.03) X10*3/uL Absolute Neuts (auto) 5.0 (2.0-8.3) x10*3/uL Absolute Nucleated RBC 0.000 (0.0-0.012) X10*3/uL Nucleated RBC % (auto) 0.0 (0.0-0.2) /100WBC Sodium 141 (135-145) mmol/L Potassium 4.3 (3.3-5.1) mmol/L Chloride 105 (96-108) mmol/L Carbon Dioxide 27 (22-29) mmol/L Anion Gap 13 (12-20) BUN 27 H (9-16) mg/dL Creatinine 0.76 (0.5-1.4) mg/dL Estim Creat Clear Calc 91.5 Estimated GFR > 60 Random Glucose 106 (60-115) mg/dL Calcium 9.7 (8.4-10.2) mg/dL Total Bilirubin 0.3 (0.0-1.0) mg/dL AST 15 (5-31) U/L ALT 12 (0-31) U/L Alkaline Phosphatase 71 (39-117) U/L Total Protein 6.9 (6.5-8.0) g/dL Albumin 4.3 (3.5-5.0) g/dL Urine Color Yellow Urine Appearance Clear Urine pH 5.5 (5.0-9.0) Ur Specific [place] 1.015 (1.005-1.025) Urine Protein Negative (Neg-Trace) mg/dL Urine Glucose (UA) Negative (Negative) mg/dL Urine Ketones Negative (Negative) mg/dL Urine Blood Negative (Negative) Urine Nitrite Negative (Negative) Ur Leukocyte Esterase Negative (Negative) Radiology Impression Discussion of test interpretation with radiology: I have reviewed the radiologist's reading. Radiologist Impression: Please see the discussion above External Record Review External record reviewed: Outpatient record, Prior outpatient labs and Prior outpatient radiology Critical Care Time Critical Care Time Critical Care Time: Yes Total Critical Care Time: 30 Attestation: I personally attest to this time spent taking care of the patient. Discharge Plan Discharge Clinical Impression: Acute right-sided back pain Patient Disposition: Home, Self-Care Instructions: Acute Low Back Pain (ED) Additional Instructions: 1. Tylenol 1000 mg, orally, every 6 hours as needed for pain control. Do not exceed 4000 mg within 24 hours. 2. Please use the Toradol/ketorolac as prescribed, recommend that you combine this with Tylenol for maximal relief. 3. Recommend lidocaine patch and/or ThermaCare patch for heat application to area of maximal pain. 4. Please follow-up with your primary care doctor and obtain a referral for physical therapy and reach out to your back surgeon for a consultation. Return to the ER for any worsening symptoms. Prescriptions: New ketorolac 10 mg tablet 10 mg PO Q6H PRN (Reason: pain) Qty: 20 0RF Rx Instructions: maximum total duration of 5 days from all oral, intranasal, or parenteral formulations No Action Myrbetriq 50 mg tablet extended release 24 hr 50 mg PO DAILY Qty: 90 2RF fluticasone propionate 50 mcg/actuation spray,suspension 1 spray intranasal DAILY Rx Instructions: administer into each nostril glucosamine-chondroitin 900 mg tablet PO DAILY clobetasol 0.05 % cream 1 appl topical DAILY 7 Days Qty: 45 1RF Rx Instructions: Then maintenance therapy for 2-3 times per week estradiol 0.01 % (0.1 mg/gram) cream See Rx Instructions .Route DAILY 30 Days Qty: 42.5 2RF Rx Instructions: apply thin coat daily cholecalciferol (vitamin D3) 125 mcg (5,000 unit) capsule 125 mcg PO DAILY cyanocobalamin (vitamin B-12) 5,000 mcg capsule 5,000 mcg PO DAILY biotin 10,000 mcg capsule PO Referrals: Johann Cunningham MD [Primary Care Provider] - Stand Alone Forms: Work/School Release Interventions: ED Discharge Assessment Last Done: 10/21/23 16:38 Discharge Date/Time: 10/21/23 16:45 Print Language: Welsh
--- OUTSIDE RECORDS SUMMARY | 2023-10-21 12:39 | XMS_ITS | Continuity of Care Document ---
Author Organization [facility] ter Address [address] [place] [address]- Care Team Providers Care Area Intelligence Technician Name Role Phone Johann Cunningham MD Primary Care Physician Encounter [facility] Date(s): 05/23/23 - 06/22/[address] [address]- Attending Physician: Not on Staff, Attending MD Admitting Physician: Not on Staff, Admitting MD Referring Physician: Not on Staff, Referring MD Allergies, Adverse Reactions, Alerts Substance Reaction Severity Status gabapentin Active Percocet violent N/V Active Dilaudid Active Bactrim violent N/V Active Medications acetaminophen 325 mg oral capsule 2 capsule = 650 mg, By Mouth, Every 4 hours, PRN Pain , Moderate, may take OTC not to exceed 3000 mg/day, 0 Refills, Maintenance, 05/23/23 6:23:00 EST, Capsule, Partial fill upon patient request if the prescription is for a schedule II opioid drug. Start Date: 05/23/23 Status: Ordered aspirin 325 mg oral delayed release tablet 325 mg, By Mouth, 2 times a day, Refills 0, Maintenance, 05/23/23 10:14:00 EST, Partial fill upon patient request if the prescription is for a schedule II opioid drug. Start Date: 05/23/23 Status: Ordered Colace Capsule 100 mg, 1, capsule, By Mouth, 2 times a day, PRN, Refills 0, Maintenance, as needed for constipation, 05/23/23 10:15:00 EST, Partial fill upon patient request if the prescription is for a schedule IIopioid drug. Start Date: 05/23/23 Status: Ordered Flonase 50 mcg/inh nasal spray 1 sprays, Nares, Both, 2 times a day, # 16 Gm, 0 Refills, Maintenance, 04/29/20 15:41:00 EST, [place] Start Date: 04/29/20 Status: Ordered Myrbetriq 50 mg oral tablet, extended release 1 tablet = 50 mg, By Mouth, Daily, do not crush or chew, # 30 tablet, 0 Refills, Maintenance, 05/15/23 11:40:00 EST, ER Tablet, Partial fill upon patient request if the prescription is for a scheduleII opioid drug. Start Date: 05/15/23 Status: Ordered pantoprazole 40 mg oral delayed release tablet = 40 mg, By Mouth, Daily, 0 Refills, Maintenance, 05/23/23 10:15:00 EST, [place] Tablet Start Date: 05/23/23 Status: Ordered Problem List Condition Confirmation Course Effective Dates Status H ealth Status Informant Hip bursitis, left Confirmed Active Primary osteoarthritis of left hip Confirmed Active Primary osteoarthritis of right knee Confirmed Active Pelvic floor dysfunction Confirmed Active Rosacea Confirmed Active Social History Social History Type Response Tobacco Use: 4 or less cigar ettes(less than 1/4 pack)/day in last 30 days. Sex Patient Care team information Care Team Personnel Name: Johann Cunningham MD Position: [facility] Outreach Member Role: PCP Address: Address: [address] [place] [address] [place] [address]- Name: Meron Ríos RN Position: [facility] RN Member Role: Primary Care Nurse Care Team Related Persons Name: YANN RASMUSSEN Address: home [address] [place] [address] Name: SMITHA DREW
--- OUTSIDE RECORDS SUMMARY | 2023-10-21 12:39 | XMS_ITS | Continuity of Care Document ---
Author Organization [facility] Address [address] [place] [address]- Care Team Providers Care Security Vehicle Patrol Officer Name Role Phone Johann Cunningham MD Primary Care Physician Encounter 05/24/23 - 05/31/23 [facility] [address] [place] [address]- Discharge Disposition: [place] Allergies, Adverse Reactions, Alerts Substance Reaction Severity [...] Gm, 0 Refills, Maintenance, 04/29/20 15:41:00 EST, [place] Start Date: 04/29/20 Status: Ordered Myrbetriq 50 [...] Team Personnel Name: Johann Cunningham MD Position: [facility] Outreach Member Role: PCP Address: Address: [address] [place] [address] Drive [place] [address]- Name: Meron Ríos RN Position: S RN Member Role: Primary Care Nurse Care Team Related Persons Name: YANN RASMUSSEN Address: home [address] [place] [address] Name: SMITHA DREW
--- OUTSIDE RECORDS SUMMARY | 2023-10-21 12:39 | XMS_ITS | Continuity of Care Document ---
Author Organization [facility] Address [address] [place] [address]- Care Team Providers Care Ladies Underwear Operator Name Role Phone Johann Cunningham MD Primary Care Physician Encounter [facility] Date(s): 05/03/23 - 06/02/23 [facility] [address] [place] [address]- Attending Physician: Admtr, [id number] Admitting Physician: Admtr, [id number] Referring Physician: Admtr, [id number] Allergies, Adverse Reactions, Alerts Substance Reaction Severity [...] Gm, 0 Refills, Maintenance, 04/29/20 15:41:00 EST, [place] Start Date: 04/29/20 Status: Ordered Myrbetriq 50 [...] Team Personnel Name: Johann Cunningham MD Position: [facility] Outreach Member Role: PCP Address: Address: [address] [place] [address] [place] [address]- Name: Meron Ríos RN Position: [facility] RN Member Role: Primary Care Nurse Care Team Related Persons Name: YANN RASMUSSEN Address: home [address] [place] [id number] Name: SMITHA DREW
--- OUTSIDE RECORDS SUMMARY | 2023-10-21 12:39 | XMS_ITS | Continuity of Care Document ---
Author Organization [facility] ter Address [address] [place] [address]- Care Team Providers Care Extractor Plant Operator Name Role Phone Johann Cunningham MD Primary Care Physician Encounter [facility] Date(s): 04/18/23 - 05/31/[address] [address]- Attending Physician: Jeramy Burciaga MD Admitting Physician: Jeramy Burciaga MD Referring Physician: Jeramy Burciaga MD Allergies, Adverse Reactions, Alerts Substance Reaction [...] Gm, 0 Refills, Maintenance, 04/29/20 15:41:00 EST, [place] Start Date: 04/29/20 Status: Ordered Myrbetriq 50 [...] Team Personnel Name: Johann Cunningham MD Position: [facility] Outreach Member Role: PCP Address: Address: [address] [place] [address] [place] [address]- Name: Meron Ríos RN Position: [facility] RN Member Role: Primary Care Nurse Care Team Related Persons Name: YANN RASMUSSEN Address: home [address] [place] [address] Name: SMITHA DREW
--- OUTSIDE RECORDS SUMMARY | 2023-10-21 12:39 | XMS_ITS | Continuity of Care Document ---
Author Organization [facility] ter Address [address] [place] [id number]- Care Team Providers Care Manager Gas Name Role Phone Johann Cunningham MD Primary Care Physician Encounter [facility] Date(s): 05/23/23 - 05/23/[address] [address]- Discharge Disposition: A-D/C Home Attending Physician: Jeramy Burciaga MD Admitting Physician: [...] opioid drug. Start Date: 05/23/23 Status: Ordered acetaminophen-HYDROcodone 325 mg-5 mg oral tablet 1 tablet, By Mouth, Every 4 hours, PRN Pain , Severe, for 7 days, # 42 tablet, 0 Refills, Acute 05/30/23 10:09:00 EST, 05/23/23 10:09:00 EST, Tablet, [facility], Partial fill upon patient request if the prescription is for a schedule II... Start Date: 05/23/23 Stop Date: 05/30/23 Status: Ordered aspirin 325 mg oral delayed [...] Gm, 0 Refills, Maintenance, 04/29/20 15:41:00 EST, [place] Start Date: 04/29/20 Status: Ordered Myrbetriq 50 mg oral tablet, extended release 1 tablet = 50 mg, By Mouth, Daily, do not crush or chew, # 30 tablet, 0 Refills, Maintenance, 05/15/23 11:40:00 EST, ER Tablet, Partial fill upon patient request if the prescription is for a scheduleII opioid drug. Start Date: 05/15/23 Status: Ordered ondansetron 4 mg oral tablet 1 tablet = 4 mg, By Mouth, Every 8 hours, PRN Nausea & Vomiting, for 5 days, # 15 tablet, 0 Refills, Acute 05/28/23 10:17:00 EST, 05/23/23 10:17:00 EST, Tablet, [facility], Partial fill upon patient request if the prescription is for a s... Start Date: 05/23/23 Stop Date: 05/28/23 Status: Ordered pantoprazole 40 mg oral delayed release tablet = 40 mg, By Mouth, Daily, 0 Refills, Maintenance, 05/23/23 10:15:00 EST, EC Tablet Start Date: 05/23/23 Status: Ordered traMADol 50 mg oral tablet See Instructions, PRN Pain , Mild, 1-2 tablets By Mouth Every 6 hours not to exceed 400 mg/day, # 56 tablet, 0 Refills, Acute 05/30/23 8:00:00 EST, 05/23/23 10:06:00 EST, Tablet, [facility], Partial fill upon patient request if the pres... Start Date: 05/23/23 Stop Date: 05/30/23 Status: Ordered Problem List Condition Confirmation Course Effective Dates Status H ealth Status Informant Hip bursitis, left Confirmed Active Primary osteoarthritis of left hip Confirmed Active Primary osteoarthritis of right knee Confirmed Active Pelvic floor dysfunction Confirmed Active Rosacea Confirmed Active Results Radiology Reports * Exam Date Time Procedure Performing Provider Status 05/23/23 11:12 AM Knee 1 or 2 Views Right Col magda Muir; Auth (Verified) Notes: (Knee 1 or 2 Views Right) Reason For Exam: Postop RESULT: Knee 1 or 2 Views Right Knee 1 or 2 Views Right, 2 views Reason: Postop; Clinical Question(s): ; Implant Position; Special Instructions: To be done in PACU,No flexed knee in the lateral position. Keep leg straight; 2 Views COMPARISON: None. FINDINGS: Overlying splint in place. There has been total knee arthroplasty. The hardware appears appropriately positioned and overall alignment is anatomic. Expected post operative changes includingsoft tissue and intra-articular gas. IMPRESSION: Appropriate alignment with expected postoperative appearance. WSN: [id number] Ordering Physician: Girish Woods Dictated By: Ketan Maier MD Dictated Date/Time: 05/23/23 12:33 p Reviewed By: Ketan Maier MD Signed By: Ketan Maier MD Signed Date/Time: 05/23/23 12:33 pm Transcribed By: ZACH Transcribed Date/Time: 05/23/23 12:31 pm Vital Signs Most recent to oldest [Reference Range]: 1 2 3 Height 177.8 cm (05/23/23 12:56 PM) 177.8 cm (05/23/23 6:32 AM) Oxygen Saturation [94-100 %] 97 % (05/23/23 1:00 PM) 95 % (05/23/23 12:45 PM) 97 % (05/23/23 12:30 PM) Pulse Rate [55-90 bpm] 66 bpm (05/23/23 6:32 AM) Blood Pressure [90-138/55-84 mm Hg] 134/80mm Hg (05/23/23 1:00 PM) 119/71mm Hg (05/23/23 12:45 PM) 117/70mm Hg (05/23/23 12:30 PM) Respiratory Rate [16-30 br/min] 19 br/min (05/23/23 1:00 PM) 17 br/min (05/23/23 12:45 PM) 17 br/min (05/23/23 12:30 PM) Temperature [96.8-100.4 DegF] 97.3 DegF (05/23/23 12:15 PM) 97.2 DegF (05/23/23 11:00 AM) 98.8 DegF (05/23/23 6:32 AM) Mode of Delivery (Oxygen) Room air (05/23/23 2:30 PM) Room air (05/23/23 1:00 PM) Room air (05/23/23 12:45 PM) Blood pressure sites Arm, right (05/23/23 1:00 PM) Arm, right (05/23/23 12:45 PM) Arm, right (05/23/23 12:30 PM) Temperature Route Temporal (05/23/23 12:15 PM) Temporal (05/23/23 11:00 AM) Temporal (05/23/23 6:32 AM) Dry Weight 86.7 kg (05/23/23 6:32 AM) Dry Weight Obtained Via Standing scale (05/23/23 6:32 AM) Social History Social History Type Response Tobacco Use: 4 or less cigar ettes(less than 1/4 pack)/day in last 30 days. Sex History and physical note * Tosin Wei NP: PERFORM, SIGN, VERIFY Jose Alejandro Powers NP: SIGN, MODIFY Jose Alejandro Powers NP: MODIFY Gualberto NEVAREZ, Jeramy Ulrich: SIGN Event Display: History and Physical Hospital Authored Date: [id number] Patient: HIMANSHU ARAUZ Age: 63 years Sex: Female : 1960 Associated Diagnoses: None Author: Tosin Wei NP Surgical History and Physical PRIMARY DIAGNOSIS: Osteoarthritis of the right knee. REASON FOR ADMISSION: The patient is being admitted for a right knee arthroplasty with Dr. Burciaga on 05/23/2023. HISTORY OF PRESENT ILLNESS: Mrs. Arauz is a pleasant 63 year-old female with right sided knee pain. The patient's pain is progressively getting worse. Pain is worse with weight bearing activities and includes walking, standing, arising, pivoting and stairs. She states she is now ready for a right total knee arthroplasty with Dr. Burciaga on 05/23/2023. She states she was recently found to have left hip bursitis and received a cortisone injection 3 weeks ago with relief. PAST MEDICAL HISTORY: 1. Osteoarthritis of the right knee. 2. Hypertension 3. Hyperlipidemia 4. Prediabetes PAST SURGICAL HISTORY: 1. Hysterectomy 2010 2. Laminectomy 2021 3. Knee arthroscopy 2005 4. [facility] surgery 2015 MEDICATIONS: Stopped all medications except flonase 3 weeks ago: 1. Biotin 10mg daily 2. Flonase 50mcg/inh spray BID 3. Glucosamine Chondroitin, 1 capsule daily ALLERGIES: Bactrim Dilaudid (GI upset) Percocet (GI upset) Gabapentin SOCIAL HISTORY: Occasional alcohol use. She occasionally does smoke. Denies drug use. PHYSICIANS: Primary care physician is Dr. Cunningham REVIEW OF SYSTEMS: Denies headache, dizziness, Denies fever, chills, unexplained weight loss or fatigue. Denies rash or lesions. Denies rhinorrhea, earache, sore throat or swollen glands. Denies cough, shortness of breath or wheezing. Denies chest pain/pressure, palpitations or edema. Denies nausea, vomiting, diarrhea, constipation or abdominal pain. Denies dysuria, urinary urgency or frequency. Denies calf pain or history of blood clots in legs. Denies numbness or tingling. Denies bruising or bleeding tendencies. PHYSICAL EXAMINATION: VITAL SIGNS: Height 60 inches, weight 194 lbs, temperature 97.3, blood pressure 133/73, pulse 72. GENERAL: Alert and oriented, normal insight, affect and grooming. SKIN: Intact without rash or lesions. Nails without clubbing or cyanosis. HEENT: Normocephalic. Conjunctivae pink. Sclerae anicteric. NECK: Supple, trachea midline, no lymphadenopathy. CHEST: Lungs are clear to auscultation bilaterally. Breathing unlabored. CARDIOVASCULAR: Heart has a regular rate and rhythm with a normal S1 and S2. No murmurs, rubs or gallop appreciated. No JVD. Carotid pulses without bruits. ABDOMEN: Soft and nontender with normal bowel sounds. No hepatosplenomegaly or masses noted. No bruits appreciated. EXTREMITIES: Right knee: Slight varus alignment. Range of motion is 5-120. No instability. Mild effusion. Severe tenderness and crepitus medially and in the patellofemoral joint. Left knee: Neutral alignment. Range of motion 0-120 degrees. No instability or effusion. Severe tenderness and crepitus in the patellofemoral joint. Antalgic gait pattern favoring the right side. Full strength and sensation distally. PREOPERATIVE DIAGNOSTIC DATA: EKG reads normal sinus rhythm with a HR of 68. Orthopedic x-rays demonstrate end-stage osteoarthritis of the right knee with [id number] articulation, subchondral sclerosis and osteophyte formation. LABORATORY DATA: Patient had labs drawn at [facility] and we will request those records. Patient reports she gave labs to the medical consult team. According to their note, BMP demonstrates sodium of 140, potassium 4.3, BUN 21, creatinine 0.73, calcium 10.0, AST16, ALT 14, CBC demonstrates WBC 6.7, RBC 4.48, Hemoglobin 14.6, Hematocrit 44.9, platelets 260. Glucose Her HgA1c was 5.7. ASSESSMENT AND PLAN: The patient has advanced osteoarthritis of the right knee and is now scheduled for right total knee arthroplasty with Dr. Burciaga on 05/23/2023. The patient was seen by the [facility] who deemed the patient a low cardiovascular and pulmonary risk. The patient will receive intravenous tranexamic acid. She will be on Aspirin for DVT prophylaxis. Discharge plans will be to home and patient is a candidate for same day discharge. She will not received Celebrex as sheis allergic to Sulfa Drugs. According to med consult, she does have and elevated JUANITA risk and will require end tidal CO2 and O2 monitoring. She has prediabetes and will require POCs and SSI. She reports she has GI upset with Percocet and Oxycodone. She states she has had Vicodin in the past and tolerated well. We will try Vicodin. She states she has plenty of Tramadol at home that has not and will not need new prescription. The patient has been counseled regarding the risks and benefits of the proposed surgery. Questions have been answered and acknowledges his understanding. The patient wishes to proceed with right total knee arthroplasty with Dr. Burciaga on 05/23/23. CONTACTS: Contact is her Richard with a cell phone number [phone] Today, she was given a prescription for Colace, Aspirin and Pantoprazole. She will require prescriptions for pain medicine upon discharge from the hospital, she does already have tramadol at home * Jose Alejandro Powers NP R: PERFORM Event Display: History and Physical Hospital Authored Date: Labs were received from [facility] and appear stable for surgery. CBC and electrolytes WNL. Glucose was 102. Note * Shelley Kee RN: PERFORM Event Display: Discharge/Transfer Note Hospital Authored Date: [id number] Nursing Discharge Note Entered On: 05/23/2023 14:44 EST Performed On: 05/23/2023 14:30 EST by Shelley Kee RN Nursing Discharge Note 2 Discharge Time : 05/23/2023 14:30 EST Discharge Level of Care at Discharge : Homehealth/VNA Discharge VNA/Hospice/Home Care(v001) : [facility] [phone] Patient Left Unit Via : Wheelchair Patient Accompanied Off Unit with : Other: Staff DC Instructions Provided & Signed by Pt : Yes Patient Understands D/C Instructions : Yes Patient Instructions Discharge Signed : Yes Did Pt have Specialty Bed or Wound Vac : No Shelley Kee RN - 05/23/2023 14:43 EST * Nadine Spain NP: PERFORM, SIGN, VERIFY, MODIFY, SIGN Gualberto NEVAREZ, Jeramy P: SIGN Event Display: Discharge/Transfer Note Hospital Authored Date: Patient: HIMANSHU ARAUZ Age: 63 years Sex: Female : 1960 Associated Diagnoses: None Author: Nadine Spain NP Discharge Summary Admission Date: 05/23/2023 Discharge Date: 05/23/2023 Admitting Diagnosis: Right knee osteoarthritis Discharge Diagnosis: Right knee osteoarthritis Final Diagnosis : Right knee osteoarthritis Procedure: Right total knee arthroplasty Surgeon: Dr. Jeramy Burciaga Past Medical History: 1. Osteoarthritis of the right knee. 2. Hypertension 3. Hyperlipidemia 4. Prediabetes Orthopedics: The patient is status post right total knee arthroplasty. It is anticipated that they will be discharged home today pending PT, OT clearance. The patient is doing well from a surgical standpoint. The incision is healing well. Neurovascular status is intact. Calves are supple and nontender. Making good progress with Physical Therapy and Occupational therapy. Supervision with ambulation walking 25 feet , ambulating with a walker. Pain is well controlled on their current regimen, Acetaminophen 650 mg every 6 hours, tramadol 50-100mg PO q 6 hrs as needed, and Tylenol 325/Hydrocodone 5mg PO every 4 hours as needed. Patient is tolerating this well. They will be sent home with a prescr iption for this medication. Prescription: Tramadol 50 mg tablet. Take 1-2 tablets every 6 hours as needed for pain x 7 days. # 56 tablet. Acetaminophen 325mg/Hydrocodone 5mg tablet. Take 1 tablet every 4 hours as needed for pain x 7 days. # 42 tablet. (Please note this contains acetaminophen do not exceed 3000mg Acetaminophen in 24 hrs) Hospital course: Relatively uneventful medically. The patient denies any nausea/vomiting. Pain is controlled now. Patient is voiding spontaneously. + bowel sounds. No other issues. No calf tenderness. Current Medication List: Acetaminophen (acetaminophen 325 mg oral capsule) 2 capsule 650 Milligram By Mouth Every 4 hours asneeded Pain , Moderate may take OTC not to exceed 3000 mg/day Acetaminophen / Hydrocodone (acetaminophen-HYDROcodone 325 mg-5 mg oral tablet) 1 tab(s) By Mouth Every 4 hours as needed Pain , Severe for 7 Days Aspirin (aspirin 325 mg oral delayed release tablet) 325 Milligram By Mouth 2 times a day Docusate (Colace Capsule) 100 Milligram 1 capsule By Mouth 2 times a day as needed as needed for constipation Fluticasone Nasal (Flonase 50 mcg/inh nasal spray) 1 spray(s) Nares, Both 2 times a day mirabegron (Myrbetriq 50 mg oral tablet, extended release) 1 tab(s) 50 Milligram By Mouth Daily do not crush or chew Ondansetron (ondansetron 4 mg oral tablet) 1 tab(s) 4 Milligram By Mouth Every 8 hours as needed Nausea & Vomiting for 5 Days Pantoprazole (pantoprazole 40 mg oral delayed release tablet) 40 Milligram By Mouth Daily Tramadol (traMADol 50 mg oral tablet) See Instructions as needed Pain , Mild 1-2 tablets By Mouth Every 6 hoursnot to exceed 400 mg/day Allergies: Allergies (Active and Proposed Allergies Only) Percocet (Severity: Unknown severity, Onset: Unknown) Reactions: violent N/V Bactrim (Severity: Unknown severity, Onset: Unknown) Reactions: violent N/V DVT prophylaxis ASA EC 325 mg p o bid x 30 days Disposition: Anticipates being discharged today to home with services. Follow up at [facility] in 2 weeks , patient isaware of this. The patient has an aquacel dressing in place. She may shower with it and the dressing can be discontinued on POD 14. Discharge Information Admission Date: 05/23/2023 Principal Discharge Diagnosis Discharge Plan Discharge Disposition Discharge: home with VNA. Home Health Face to Face I certify that this patient is under my care and that I or an allowed non- physician practitioner working with me, had a [id number] encounter with the patient on this date: 05/23/2023. The encounter with the patient was in whole, or in part, for the following medical condition, whichis the primary reason for home health care: Osteoarthritis of knee, right. Physical Therapy: Functional mobility training, Home exercise program to strengthen, increase ROM, Falls prevention training. Homebound due to: Inability to leave home without assistance/supervision, Inability to ambulate without assistance, Pain, decreased strength, and endurance. Physician Signature: Gualberto NEVAREZ, Jeramy Toney * Vidhya CARPIO, Shelley: PERFORM Event Display: Patient Education/Instruction Authored Date: [id number] Inpatient Adult Discharge Instructions [place] [id number] Name: HIMANSHU ARAUZ : 1960 Visit: 05/23/2023 06:14:00 Current Date: 05/23/2023 13:28 Account: [id number] Inpatient Adult Discharge Instructions We would like to thank you for allowing us to assist you with your healthcare needs. The following includes patient education materials and information regarding your injury/illness. Our entire staffstrives to provide an excellent experience for our patients and their families. PLEASE ENSURE YOU FOLLOW-UP PER THE INSTRUCTIONS BELOW! ?? YOUR OPINION IS IMPORTANT TO US! Please complete the survey you may receive by mail or email. Your feedback will be used to make improvements to the healthcare experiences of our patients and their families. Surveys are administered by [employer] ?? If further treatment with your primary care physician or another doctor is recommended, it is important for you to keep the appointment. Call your primary care physician or return to the Emergency Department immediately if your condition worsens, fails to improve, or new symptoms develop. If you need to find a doctor, you can call [facility] Link for a referral at [phone] or toll free at [phone]) or log in to [email or web address].. ?? [facility], in keeping with [facility] guidance, no longer requires face masks for staff, patientsor visitors in most situations. Similiar to time spent indoors at other locations, there is the chance that you were exposed to repiratory viruses during your time with us (such as flu or COVID-19). If you develop symptoms concerning for a viral respiratory infection, please seek testing (and treatment if indicated) from your medical provider or home test kit. ?? You can view and manage your care through the patient portal or by using a health care leticia of your choosing. [employer] is a website that allows you to securely view your medical information including your hospital discharge summary, office visit summaries, medications and follow-up visits. You can also request appointments, renew medications, and request access to your medical information using a health care leticia of your choosing, or just ask a question. You can enroll at [email or web address] or register during your next office visit. You have been discharged from [facility], Patient Care Unit: PANU. If you have any questions regarding these instructions after you leave, please call us and we will be happy to assist you. [facility] Your Care Team Attending Physician Jeramy Burciaga MD Discharging Providers Grabiel GRAHAM, Nadine Lyons Reason for Admission OA RIGHT KNEE 23 HR Your Diagnosis Osteoarthritis of knee, right Tests Performed Below is a partial list of the tests performed during your hospitalization. You may have had other tests and procedures not included in this list. Please discuss all test results with your provider. XR Knee 1 or 2 Views Right Primary Care Provider Johann Cunningham MD Advance Directive Health Care Proxy on File Yes - Health Care Proxy Discharge Vitals Temperature: 97.2 DegF Height: 177.8 cm Pulse Rate: 66 bpm ?? Respiratory Rate: 19 br/min ?? Systolic Blood Pressure: 134 mm Hg ?? Diastolic Blood Pressure: 80 mm Hg ?? Oxygen Saturation: 97 % ?? Studies Pending All tests and labs ordered during this hospital stay have been completed unless listed below. Please discuss all pending results with your provider listed above in these instructions. ?? BUN CBC Creatinine Electrolytes What to do next Instructions From Your Doctor Discharge Orders You Need to Schedule the Following Appointments Follow Up with??[facility] When:??Within 1 to 2 weeks Why: Or as previously scheduled Where: [address] [place] [address] [address] [place] [address]- Discharge Medications HIMANSHU ARAUZ :1960 Visit Date:05/23/2023 Medications: Please continue your medications until treatment is completed or stopped by your provider. Medications not listed below should be discontinued. Discuss any questions related to medications with your provider. What How Much When Instructions Next Dose New Acetaminophen / Hydrocodone (acetaminophen-HYDROcodone 325 mg-5 mg oral tablet) 1 tab(s) Oral Every 4 hours as needed for Pain , Severe Duration: 7 Days Pickup at [facility] 3 When you get home, if needed New Aspirin (aspirin 325 mg oral delayed release tablet) 325 Milligram Oral Twice a day Tonight New Docusate (Colace Capsule) 100 Milligram Oral Twice a day as needed for as needed for constipation Tonight New Ondansetron (ondansetron 4 mg oral tablet) 1 tab(s) Oral Every 8 hours as needed for Nausea & Vomiting Duration: 5 Days Pickup at [facility] 3 Today, if needed New Pantoprazole (pantoprazole 40 mg oral delayed release tablet) 40 Milligram Oral Daily Resume as ordered New Tramadol (traMADol 50 mg oral tablet) See instructions 1-2 tablets By Mouth Every 6 hours not to exceed 400 mg/ day, As needed for Pain , Mild ?? Pickup at [facility] 3 530pm tonight Changed Acetaminophen (acetaminophen 325 mg oral capsule) 2 capsule Oral Every 4 hours as needed for Pain , Moderate may take OTC not to exceed 3000 mg/ day ?? Resume as ordered, do not take with Vicodin Unchanged Fluticasone Nasal (Flonase 50 mcg/ inh nasal spray) 1 spray(s) Nares, Both Twice a day Resume as ordered Unchanged mirabegron (Myrbetriq 50 mg oral tablet, extended release) 1 tab(s) Oral Daily do not crush or chew ?? Resume as ordered Pharmacy Information [facility]: [address], [place] [id number] [phone] ?? What How Much When Comments Stop Taking ascorbic acid/ chondroitin/ glucosa/ luz maria (GlucosamineChondroitin) 1 capsule Oral Daily Stop Taking Biotin (biotin 10 mg oral tablet) 1 tab(s) Oral Daily Stop Taking Cholecalciferol (Vitamin D3 5000 intl units oral tablet) 1 tab(s) Oral Daily in the morning Stop Taking Estradiol Topical (estradiol 0.1 mg/ g vaginal cream) Stop Taking Medication History biosooth 2 caps QD ?? Stop Taking Zolpidem (zolpidem 5 mg oral tablet) 1 tab(s) Oral Daily at Bedtime as needed for as needed for insomnia Test Results Below is a partial list of the most recent Laboratory test results done prior to this discharge. You may have had other tests and procedures not included in this list. Please discuss all test resultswith your provider. Allergies (NKA means No Known Allergies) Bactrim??(violent N/V) Dilaudid Percocet??(violent N/V) gabapentin Problems Active Problems??(5) Hip bursitis, left?? Pelvic floor dysfunction?? Primary osteoarthritis of left hip?? Primary osteoarthritis of right knee?? Rosacea?? Education Materials Below is the list of Educational Leaflet Providered with your Discharge Instructions. Surgery Medical Daystay Surgical Overnight Discharge Instructions?? Total Knee Replacement Discharge Instructions?? Valuables and Belongings I fully understand and agree that [facility] accepts no responsibility for all my personal property including clothing, toilet articles, radios, jewelry, dentures, hearing aids, rings, money, or any other property that is in my possession or is brought to me after admission. I understand certain valuables may be placed in a hospital safe for a short period of time. I understand that the hospital is not liable for loss or damage due to accident, fire, or other natural occurrence while said property is in the safe. I accept full responsibility for any personal property that I keep with me, and will not hold the hospital responsible in case of loss or disappearance. I acknowledge that i have been encouraged to send valuables and belongings home. ?? Review of Valuable and Belonging List: With patient Disposition of Belongings: Other: locker Date for Pt to Sign Valuables/Belongings: 05/23/23 07:29:00 ?? Valuables & Belongings ?? Clothes Electronic devices Jewelry Monetary Items Personal devices Miscellaneous Medications (Valuables) Valuables at Bedside Jacket, Pants, Shirt, Shoes, Undergarments Cell phone ? Valuables Sent Home ? Valuables Sent to Security ? Other Discharge Information ? Case Management Discharge Plan?? Discharge Plan?? Discharge Agency Information?? Discharge Level of Care at Discharge: Homehealth/VNA Service Categories #1: Physical Therapy Discharge VNA/Hospice/Home Care: [facility] [phone] Service Comments #1: [facility] will contact you to set up a visit time after discharge. Please call [phone] if you don't hear from them. ?? Pulmonary Rehab Status?? Pulmonary Rehab Discharge Status?? Respiratory Rate: 19 br/min ? Common Emergency Awareness Tips IS IT A STROKE? Act FAST and Check for these signs: FACE Does the face look uneven? ARM Does one arm drift down? SPEECH Does their speech sound strange? TIME Call at any sign of stroke ?? Heart Attack Signs Chest discomfort: Most heart attacks involve discomfort in the center of the chest and lasts more than a few minutes, or goes away and comes back. It can feel like uncomfortable pressure, squeezing, fullness or pain. Discomfort in upper body: Symptoms can include pain or discomfort in one or both arms, back, neck, jaw or stomach. Shortness of breath: With or without discomfort. Other signs: Breaking out in a cold sweat, nausea, or lightheaded. Remember, MINUTES DO MATTER. If you experience any of these heart attack warning signs, call to get immediate medical attention! ?? Smoking can increase your chances of developing chronic health problems and can cause harmful effects to other family members in your house. If you smoke, you are strongly encouraged to quit. Please call [facility] at [phone] or [phone] ([phone]) or log in to [email or web address] for referrals to smoking cessation programs. ?? 840 Suicide & Crisis Lifeline is available 15/01 if you or someone you know needs to find a reason to keep living. By calling 418 you'll be connected to a skilled, trained counselor at a crisis center in your area. INPATIENT DISCHARGE INSTRUCTIONS SIGNATURE PAGE HIMANSHU ARAUZ Location:[facility] Registration Date and Time:05/23/2023 06:14 EST Primary Care Physician: Marisa NEVAREZ, Johann, Attending Physician: Gualberto NEVAREZ, Jeramy Ulrich, I VALERYHIMANSHU, have received the above patient education materials/instructions and have verbalized understanding. If ambulance or transport services are being used I further acknowledge being given a choice of service. ?? If you need to contact me, please call me at this number: . Patient/Patent Prosecution Attorney Name: Patient/Patent Prosecution Attorney Signature: Relationship to Patient: Witness Name/Signature: Date: * Rain King RN: PERFORM Event Display: Patient Education Leaflets Authored Date: [id number] Surgery Medical Daystay Surgical Overnight Discharge Instructions ?? 295 Medical Daystay/Surgical Overnight Discharge Instructions ? Since your coordination and judgment may be altered by medication and/or anesthesia, a responsible adult must drive you home from the hospital. ? If you have received medication for pain or sedation while under our care, you should not drive, operate machinery, drink alcohol, or sign any legal documents for 24 hours.?? You should have someone with you at home tonight. ? Remain at home the day of discharge.?? You may be up and about unless otherwise instructed by your physician. ? You may resume your daily prescription medication schedule.?? Any depressant medication should be avoided for 24 hours unless otherwise instructed by your surgeon or anesthesiologist. ? Call your physician for a follow-up appointment.? If you experience unusual or severe pain not relied by your pain medication, excessive bleedingor drainage, persistent nausea and vomiting, excessive swelling or redness, foul odor from incisionsite or fever over 100.6F, you need to call your physician. ? A follow-up phone call by a nurse will be made the day after your procedure.?? If you have stayed with us over night, you will not be receiving a follow-up phone call. ? Nausea and vomiting are a common side effect of prescription pain medication.?? We recommend that pills are not taken on an empty stomach.?? While taking any prescription pain medication you should not drive or drink alcohol. ? * Rain King RN: PERFORM Event Display: Patient Education Leaflets Authored Date: [id number] Total Knee Replacement Discharge Instructions ?? 667 Total Knee Replacement Discharge Instructions ??? Please read and review your Total Knee Replacement Book for detailed information ??? Your appetite may be decreased but try to maintain a good balanced diet ?? Ice and elevation ?Ice is important to help keep swelling down. ?Keep elevated as much as possible. ?Ice the knee 4 times a day for 20 minutes each time. Be sure not to put the ice/ice pack directly on your skin. Use a dish towel or something similar between the ice and your skin. ??? Moving ? Get up and walk frequently. ??? Do 20 ankle pumps every hour. ??? Complete your exercises 4times a day, bending and straightening your knee ??? Begin exercises the evening you go home ??? Moving is especially important. This helps to prevent blood clots. Take short frequent walks. ? Wear your knee brace when walking until your surgeon or physical therapist tells you to stop. ??? You may sleep with or without the brace and sleep anyway you are comfortable. ??? Place a pillow underthe ankle/lower leg when lying down to help with extension of your knee. ??? Do not put a pillow under your knee ??? Continue to move your foot up and down, this exercise helps to prevent blood clotsand to help reduce swelling in your knee ??? No driving until approved by your surgeon ?? Incision ?Your incision is closed with absorbable stitches and surgical glue. ?The dressing iswaterproof. You may shower the next day. ??? You may develop some discoloration around your incision (yellowish or bruising) ??? Your dressing will stay on for 1-2 weeks ?You cannot go in a bath, pool, ocean, pond, morales or jacuzzi for 6 weeks. This is to reduce your risk of infection ? You may have some numbness around the incision. This is normal and will improve with time. Some patients have numbness that does not completely go away. ?? When to call the Surgeon?CALL [phone] ?If you have shortness of breath or chest pain, call 911 or go to the nearest emergency department. ??? If you have drainage and/or redness around your wound. ?If you have a fever greater than 101.5 (38.5 degrees Celsius). ?If you have persistent calf pain or swelling (This couldbe a blood clot). ??? If your pain is worsening. ? If you have any difficulty with urination or burning with urination ? Patient Care team information Care Team Personnel Name: Johann Cunningham MD Position: [facility] Outreach Member Role: PCP Address: Address: [address] [place] [address] [place] [address]- Name: Meron Ríos RN Position: [facility] RN Member Role: Primary Care Nurse Care Team Related Persons Name: YANN ARAUZ Address: home [address] [place] [id number] Name: RICHARD DREW
--- OUTSIDE RECORDS SUMMARY | 2023-10-21 12:39 | XMS_ITS | Continuity of Care Document ---
Author Organization [facility] ter Address [address] [place] [id number]- Care Team Providers Care Sand Bobber Name Role Phone Johann Cunningham MD Primary Care Physician [place] [facility] [place] [facility] [place]): [place] - 05/31/[address] [address]- Attending Physician: Admtr, [id number] Admitting Physician: Admtr, [...] Gm, 0 Refills, Maintenance, 04/29/20 15:41:00 EST, [place] Start Date: 04/29/20 Status: Ordered Myrbetriq 50 [...] Team Personnel Name: Johann Cunningham MD Position: [facility] Outreach Member Role: PCP Address: Address: [address] [place] [address] [place] [address]- Name: Meron Ríos RN Position: [facility] RN Member Role: Primary Care Nurse Care Team Related Persons Name: YANN RASMUSSEN Address: home [address] [place] [address] Name: SMITHA DREW
--- OUTSIDE RECORDS SUMMARY | 2023-10-21 12:39 | XMS_ITS | Continuity of Care Document ---
Author Organization [facility] Address [address] [place] [address]- Care Team Providers Care Tobacco Educator Name Role Phone Johann Cunningham MD Primary Care Physician [phone] Encounter [facility] [place] Date(s): 05/03/23 - 05/10/23 [facility] [address] [place], [place] [address] Attending Physician: Alia NEVAREZ, Jamar Ramirez Referring Physician: Gualberto NEVAREZ, Jeramy Ulrich Allergies, Adverse Reactions, Alerts Substance Reaction Severity Status Percocet Active Bactrim Active Medications biotin 10 mg oral tablet 1 tablet = 10 mg, By Mouth, Daily, # 30 tablet, 0 Refills, Maintenance, 04/29/20 15:41:00 EST, Tablet Start Date: 04/29/20 Status: Ordered Flonase 50 mcg/inh nasal spray 1 sprays, Nares, Both, 2 times a day, # 16 Gm, 0 Refills, Maintenance, 04/29/20 15:41:00 EST, [place] Start Date: 04/29/20 Status: Ordered Glucosamine Chondroitin 1 capsule, By Mouth, Daily, 0 Refills, Maintenance, 06/02/21 14:34:00 EST, Partial fill upon patient request if the prescription is for a schedule II opioid drug. Start Date: 06/02/21 Status: Ordered Medication History biosooth 2 caps QD, 0 Refills, Maintenance Start Date: 06/02/21 Status: Ordered Vitamin D3 5000 intl units oral tablet 1 tablet = 125 mcg, By Mouth, Daily in AM, 0 Refills, Maintenance, 07/28/21 18:04:00 EST, Tablet, Partial fill upon patient request if the prescription is for a schedule II opioid drug. Start Date: 07/28/21 Status: Ordered Problem List Condition Confirmation Course Effective Dates Status H ealth Status Informant Hip bursitis, left Confirmed Active Primary osteoarthritis of left hip Confirmed Active Primary osteoarthritis of right knee Confirmed Active Pelvic floor dysfunction Confirmed Active Rosacea Confirmed Active Procedures Procedure Date Related Diagnosis Body Site Status L3-4, L4-5 back surgery 08/12/2021 Completed Vital Signs Most recent to oldest [Reference Range]: 1 Height 177.80 cm (05/03/23 12:00 PM) Weight 87.6 kg (05/03/23 12:00 PM) Oxygen Saturation [94-100 %] 100 % (05/03/23 12:00 PM) Pulse Rate [55-90 bpm] 76 bpm (05/03/23 12:00 PM) Body Mass Index [18.5-24.99 kg/m2] 27.71 kg/m2 *H* (05/03/23 12:00 PM) Blood Pressure [90-138/55-84 mm Hg] 166/ 84mm Hg *H* (05/03/23 12:00 PM) Respiratory Rate [16-30 br/min] 18 br/mi n (05/03/23 12:00 PM) Blood pressure sites Arm, right (05/03/23 12:00 PM) Weight Obtained Via Standing scale (05/03/23 12:00 PM) Social History Social History Type Response Tobacco Use: 4 or less cigar ettes(less than 1/4 pack)/day in last 30 days. Sex EKG study * Event Display: ECG 12-Lead Authored Date: Please click on pdf link to open report * Event Display: ECG 12-Lead Authored Date: Ventricular Rate: 68 BPM Atrial Rate: 68 BPM P-R Interval: 188 ms QRS Duration: 88 ms Q-T Interval: 400 ms QTC Calculation(Bazett): 425 ms P [place]: 23 degrees R [place]: 51 degrees T [place]: 35 degrees Normal sinus rhythm Normal ECG No previous ECGs available Confirmed by CHARLOTTE CLARK MD ([id number]) on 05/03/2023 12:45:46 PM [place]: CHARLOTTE CLARK MD Patient Care team information Care Team Personnel Name: Johann Cunningham MD Position: [facility] Outreach Member Role: PCP Address: Address: [address] [place] [address] Drive Johann Cunningham [place], [place] [address] Name: Meron Ríos RN Position: [facility] RN Member Role: Primary Care Nurse Care Team Related Persons Name: YANN RASMUSSEN Address: home [address] [place] [id number] Name: SMITHA DREW
[2023-10-21 12:44] VITALS: BP 147/74; RESP 14; TEMP 36.8; O2SAT 96
[2023-10-21 13:00] LABS: MANUAL DIFF FLAG NO
[2023-10-21 13:03] LABS: Basophils Absolute Auto 0.1 X10*3/uL (0.0-0.2); Basophils Percent Auto 0.9 % (0-2); Eosinophils Absolute Auto 0.2 X10*3/uL (0.0-0.4); Eosinophils Percent Auto 2.2 % (0-4); Hematocrit 39.1 % (37.0-47.0); Hemoglobin 12.8 g/dl (12.0-16.0); Imm Gran Abs Auto 0.02 X10*3/uL (0.00-0.03); Imm Gran Pct Auto 0.3 % (0.0-0.4); Lymphocytes Absolute Auto 1.4 X10*3/uL (1.2-4.9); Lymphocytes Percent Auto 19.6 % (20-40); Mean Corpuscular HGB Conc 32.7 g/dl (31.0-35.0); Mean Corpuscular Volume 97.8 fL (80.0-98.0); Mean Platelet Volume 10.1 fL (9.4-12.3); Monocytes Absolute Auto 0.3 X10*3/uL (0.1-1.2); Monocytes Percent Auto 4.9 % (2-11); Neutrophils Percent Auto 72.1 % (45-73); Platelet Count 230 X10*3/uL (160-400); Red Cell Distribution Width 13.2 % (11.0-16.0); White Blood Count 6.9 X10*3/uL (4.8-10.8)
[2023-10-21] MEDS: Ketorolac Tromethamine 30 MG/ML VIAL 15 MG IVPUSH ×2 (13:03→16:32)
[2023-10-21] MEDS: ondansetron HCL 4 MG/2 ML VIAL IVPUSH (13:03)
[2023-10-21] MEDS: 0.9 % Sodium Chloride 1,000 ML 999 ML IV ×2 (13:04)
[2023-10-21 13:27] LABS: Alanine Aminotransferase 12 U/L (0-31); Albumin Level 4.3 g/dL (3.5-5.0); Alkaline Phosphatase 71 U/L (39-117); Anion Gap 13 (12-20); Aspartate Amino Transferase 15 U/L (5-31); Bilirubin Total 0.3 mg/dL (0.0-1.0); Blood Urea Nitrogen 27 mg/dL (9-16); Calcium 9.7 mg/dL (8.4-10.2); Carbon Dioxide 27 mmol/L (22-29); Chloride 105 mmol/L (96-108); Creatinine Clr Calc Pharmacy 91.5; Estimated Glomerular Filt Rate > 60; Glucose Random 106 mg/dL (60-115); Potassium 4.3 mmol/L (3.3-5.1); Sodium 141 mmol/L (135-145); Total Protein 6.9 g/dL (6.5-8.0)
[2023-10-21 13:37] LABS: Appearance Urine Clear; Color Urine Yellow; Glucose Urine UA Negative (Negative); Leukocyte Esterase Urine Negative (Negative); Nitrite Urine Negative (Negative); PH 5.5 (5.0-9.0); Specific Gravity - Urine 1.015 (1.005-1.025); Urine Blood Negative (Negative); Urine Ketones Negative (Negative); Urine Protein Negative (Neg-Trace)
[2023-10-21 14:30] VITALS: BP 132/61; PULSE 62; RESP 16; TEMP 36.1; O2SAT 97
[2023-10-21] MEDS: Lidocaine 4 % Patch ADH..PATCH 1 PATCH TRANSDERMA (16:32)
[2023-10-21 16:38] VITALS: BP 159/67; PULSE 70; RESP 18; TEMP 36.7; O2SAT 98
== END 2023-10-21 16:45 | disposition home or self-care (01) ==
PROVIDERS: Physician Assistant; Emergency Provider Student in an Organized Health Care Education/Training Program; PCP Internal Medicine
DX: M54.9 Dorsalgia, unspecified (principal); R10.9 Unspecified abdominal pain
CPT/HCPCS: 36415; 74176; 80053; 81003; 85025; 96361; 96374; 96375; 96376; 99284; J1885; J2405

== ENCOUNTER 2023-10-29 07:23 | Outpatient (REF) | payer OTHER, SELFPAY ==
--- NOTE | ~2023-10-29 | US_ITS ---
EXAMINATION: US ABDOMEN LIMITED CLINICAL INFORMATION: Chronic GERD. Nausea. Gallstones. COMPARISON: CT abdomen and pelvis 10/21/2023. CT abdomen and pelvis without and with contrast 09/02/2015. TECHNIQUE: Real-time imaging of the right upper quadrant abdominal viscera. FINDINGS: PANCREAS: Normal. LIVER: Normal. The liver is normal in size. The liver contour is normal. Parenchymal echogenicity is normal. No focal hepatic lesion. There is no intrahepatic biliary duct dilatation seen. GALLBLADDER: 1.4 cm mobile gallstone. No evidence of cholecystitis. COMMON BILE DUCT: Normal in caliber measuring 0.4 cm in diameter. RIGHT KIDNEY: Normal. No hydronephrosis. No renal calculi or focal parenchymal lesions. The kidney measures 10.6 cm in maximum dimension. FREE FLUID: None. US/US abdomen limited IMPRESSION: Cholelithiasis without sonographic evidence of acute cholecystitis. No biliary ductal dilatation. The indeterminant hypoattenuating lesion in the posterior right hepatic lobe on recent CT scan is not visualized on current ultrasound. However, in retrospect on the CT abdomen and pelvis without and with contrast 09/02/2015 this is consistent with hemangioma.
== END 2023-10-29 07:24 | disposition home or self-care (01) ==
LOC: HO.US 07:23
PROVIDERS: PCP Internal Medicine; Visit Provider Internal Medicine
DX: K21.9 Gastro-esophageal reflux disease without esophagitis (principal); R11.0 Nausea
CPT/HCPCS: 76705

== ENCOUNTER 2023-11-05 14:28 | Outpatient (AMB) | payer OTHER, SELFPAY ==
--- NOTE | 2023-11-05 14:37 | A.OFFVIS_ITS ---
Vital Signs 11/05/23 14:38 Height 5 ft 10 in Intake Visit Reasons: RUQ pain Intake Note: This patient presents for an assessment for right upper quadrant pain. Patient c/o; reports had an episode where RUQ radiated towards lower back, reports fatty foods can trigger symptoms, reports nausea. 10/21/2023: Abd/pelvis CT 10/29/2023: Abd US Chef Manager Required: No Accompanied by: Self / Same As Patient Allergies sulfamethoxazole [From BACTRIM] Allergy (Intermediate, Verified 11/05/23 14:41) N/V trimethoprim [From BACTRIM] Allergy (Intermediate, Verified 11/05/23 14:41) N/V Sulfa (Sulfonamide Antibiotics) Allergy (Unknown, Verified 11/05/23 14:41) diarrhea gabapentin Allergy (Verified 11/05/23 14:41) swelling of hands and feet acetaminophen [Percocet] Adverse Reaction (Unknown, Verified 11/05/23 14:41) stomach upset oxycodone [Percocet] Adverse Reaction (Unknown, Verified 11/05/23 14:41) stomach upset HPI Comments Details: Patient presents with a longstanding history of upper abdominal pain radiating around to her back. She had attributed this to many elements and reflux. She is currently on omeprazole good recent sonogram further workup demonstrates cholelithiasis. Patient otherwise has regular bowel habits. She has never been jaundiced before. Patient is status post recent right total knee replacement. Chart was reviewed and patient evaluated [facility] Medical History Hammer toe Osteoarthritis, generalized Chronic pain syndrome Spinal stenosis of lumbar region Surgical History H/O toe surgery H/O laminectomy S/P discectomy for herniated nucleus pulposus H/O: hysterectomy H/O knee surgery Family History Father Heart disease Stroke Maternal Grandfather Stroke Paternal Uncle Cancer Social History Alcohol intake: current Alcohol intake frequency: holidays/special occasions only Patient Tobacco Use Status: Former Tobacco user Tobacco use type: Cigarette Years Smoked: stopped few months ago Physical Exam Eyes Other: Anicteric Chest Other: Chest breath sounds bilaterally, HS 1 in 2 GI Other: Abdomen mildly corpulent, soft, benign. Lower midline scar. Assessment & Plan Assessment & Plan (1) Biliary colic: Code(s): K80.50 - Calculus of bile duct without cholangitis or cholecystitis without obstruction Category: Surgical Plan Risks, benefits, and alternatives laparoscopic possible open cholecystectomy reviewed with the patient and included but not limited to bleeding, infection, recurrence of symptoms, numbness, pain, scarring, bowel or bile duct injury or leak and the patient wishes to proceed. All questions answered. Arrangements were made for this when it is convenient for her. Coding Level of Care Code New Pt Level 5 (31060) Diagnoses Biliary colic K80.50
== END 2023-11-05 15:05 | disposition home or self-care (01) ==
PROVIDERS: PCP Internal Medicine; Visit Provider Surgery
DX: K80.50 Calculus of bile duct without cholangitis or cholecystitis without obstruction (principal)
CPT/HCPCS: 99204

== ENCOUNTER → 2023-11-05 14:28 | Outpatient (BNVA) | payer OTHER, SELFPAY | PROVIDERS: PCP Internal Medicine; Visit Provider Surgery ==

== ENCOUNTER 2023-12-11 14:27 | Outpatient (AMB) | payer OTHER, SELFPAY ==
--- NOTE | 2023-12-11 14:31 | MHC.OFFVIS ---
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: No Information Interpreted: non-clinical & clinical Lead Generation Specialist: Lead Generation Specialist Present (June DARNELL) Allergies sulfamethoxazole [From BACTRIM] Allergy (Intermediate, Verified 12/11/23 14:38) N/V trimethoprim [From BACTRIM] Allergy (Intermediate, Verified 12/11/23 14:38) N/V Sulfa (Sulfonamide Antibiotics) Allergy (Unknown, Verified 12/11/23 14:38) diarrhea gabapentin Allergy (Verified 12/11/23 14:38) swelling of hands and feet acetaminophen [Percocet] Adverse Reaction (Unknown, Verified 12/11/23 14:38) stomach upset oxycodone [Percocet] Adverse Reaction (Unknown, Verified 12/11/23 14:38) stomach upset Post menopausal: Yes HPI Comments Details: Presenting for annual exam. No complaints. Last Pap/HPV was in 2011, the patient is status post hysterectomy Last Mammogram was in 01/14 was BI-RADS 1 Last Colonoscopy was in 07/13, the recommendation was to repeat in 5 years [facility] Medical History Hammer toe Osteoarthritis, generalized Chronic pain syndrome Spinal stenosis of lumbar region Surgical History Total knee replacement status H/O toe surgery H/O laminectomy S/P discectomy for herniated nucleus pulposus H/O: hysterectomy H/O knee surgery Family History Father Heart disease Stroke Maternal Grandfather Stroke Paternal Uncle Cancer Social History Household Members: Spouse Housing: House Alcohol intake: current Alcohol intake frequency: holidays/special occasions only Patient Tobacco Use Status: Former Tobacco user Tobacco use type: Cigarette Years Smoked: stopped few months ago Current occupational status: employed Current occupation: [employer] [place] [employer] Sexually active: Yes Sexual orientation: Straight/Heterosexual Gender identity: Female Female Reproductive History Menstrual Menopause type: surgical Total pregnancies: 0 Date of last pap smear: 02/08/12 (hysterectomy) Date of Mammogram: 01/11/23 Review of Systems Const All systems reviewed & are unremarkable except as noted in HPI and below Card Reports as per HPI and Reports no additional complaints Resp Reports as per HPI and Reports no additional complaints GI Reports as per HPI and Reports no additional complaints Reports as per HPI Physical Exam Vital Signs: Last Vital Signs BP 126/68 12/11/23 14:32 BMI result Body Mass Index 27.0 Const General: cooperative, healthy appearing and comfortable General: Yes bladder normal to palpation External Female Exam: No lesion Speculum Exam - Vagina: normal appearance of the vagina, normal vaginal discharge and not erythematous Speculum Exam - Cervix: Cervix absent Bimanual exam- vagina & uterus: bladder normal to palpation and uterus absent Bimanual Exam- Adnexa, other: Other (No masses detected) Assessment & Plan Assessment & Plan (1) Well woman exam: Code(s): Z01.419 - Encounter for gynecological examination (general) (routine) without abnormal findings Category: Medical Plan: Co testing not indicated since the patient had hysterectomy for benign disease with no history of abnormal Pap smears. Counseled the patient about the recommended dietary allowance of 1200 mg of Calcium & 600 IU of vitamin D. Mammogram ordered. The patient is scheduled with GI for screening colonoscopy in 01/27/2024 . The patient was instructed to perform monthly self-breast exams and schedule annual exam in a year. All questions answered and the patient verbalized understanding. (2) Lichen sclerosus: Code(s): L90.0 - Lichen sclerosus et atrophicus Category: Medical Plan: Clobetasol refilled. Instructions given the patient to call in case of hard areas in the perineum, and nonhealing ulcers. All questions answered, the patient verbalized understanding Orders: Orders MM tomosynthesis screening BI Today Z12.31 - Encounter for screening mammogram for malignant neoplasm of breast Medications: Refilled clobetasol 0.05% Then maintenance therapy for 2-3 times per week 1 appl topical DAILY 1 week 45 grams 1RF Coding Level of Care Code Est Pt Prev Care 40-64y(65799) Diagnoses Well woman exam Z01.419 Lichen sclerosus L90.0
[2023-12-11 14:32] VITALS: BP 126/68; BMI 27.0
== END 2023-12-11 15:07 | disposition home or self-care (01) ==
LOC: HO.HWS 14:27
PROVIDERS: PCP Internal Medicine; Visit Provider Obstetrics & Gynecology
DX: Z01.419 Encounter for gynecological examination (general) (routine) without abnormal findings (principal); L90.0 Lichen sclerosus et atrophicus
CPT/HCPCS: 99396

== ENCOUNTER → 2023-12-11 14:27 | Outpatient (BNVA) | payer OTHER, SELFPAY | PROVIDERS: PCP Internal Medicine; Visit Provider Obstetrics & Gynecology ==

== ENCOUNTER 2023-12-21 07:57 | Day surgery (SDC) | payer OTHER, SELFPAY ==
--- NOTE | 2023-12-19 14:29 | P.CONAN_ITS ---
Documented by User: Tawny Wilson NP 12/19/23 14:29 HPI - Anesthesia Eval Consult details Narrative: 63yo F for Cholecystectomy Laparoscopic,possible open PMFSH Active Problems Active Problems: All Active Problems Biliary colic (Acute) Genitourinary syndrome of menopause (Acute) Medication monitoring encounter (Acute) Urge incontinence of urine (Acute) JAMEL (stress urinary incontinence, female) (Acute) Cystocele (Acute) Pelvic floor weakness (Acute) Lichen sclerosus (Acute) Osteopenia (Acute) Skin lesion (Acute) Menopause (Acute) Cystocele without uterine prolapse (Acute) Urine incontinence (Acute) Lesion of vulva (Acute) Vulvar leukoplakia (Acute) Family history of osteoporosis (Acute) Well woman exam (Acute) Osteoarthritis of knees, bilateral (Acute) Osteoarthritis, generalized (Acute) Chronic pain syndrome (Acute) Spinal stenosis of lumbar region (Acute) Past Medical History Medical History Hammer toe Osteoarthritis, generalized Chronic pain syndrome Spinal stenosis of lumbar region Family History Family History Father Heart disease Stroke Maternal Grandfather Stroke Paternal Uncle Cancer Surgical History Surgical History Total knee replacement status H/O toe surgery H/O laminectomy S/P discectomy for herniated nucleus pulposus H/O: hysterectomy H/O knee surgery Social History Social History Household Members: Spouse Housing: House Alcohol intake: current Alcohol intake frequency: holidays/special occasions only Comment: counts correct Patient Tobacco Use Status: Current someday Tobacco user Tobacco use type: Cigarette Years Smoked: stopped few months ago Current occupational status: employed Current occupation: [employer] Sexual orientation: Straight/Heterosexual Gender identity: Female Meds Allergies Allergy/AdvReac Type Severity Reaction Status Date / Time sulfamethoxazole Allergy Intermediate N/V Verified 12/11/23 14:38 [From BACTRIM] trimethoprim [From BACTRIM] Allergy Intermediate N/V Verified 12/11/23 14:38 Sulfa (Sulfonamide Allergy Unknown diarrhea Verified 12/11/23 14:38 Antibiotics) gabapentin Allergy swelling Verified 12/11/23 14:38 of hands and feet oxycodone [Percocet] AdvReac Unknown stomach Verified 12/11/23 14:38 upset Home Medications ?Medication ?Instructions ?Recorded ?Confirmed ?Last Taken ?Type fluticasone propionate 50 1 spray intranasal DAILY 04/07/20 12/21/23 Unknown History mcg/actuation nasal spray,suspension cholecalciferol (vitamin D3) 125 125 mcg PO DAILY 07/17/22 12/21/23 Unknown History mcg (5,000 unit) capsule cyanocobalamin (vitamin B-12) 5,000 mcg PO DAILY 07/17/22 12/21/23 Unknown History 5,000 mcg capsule Exam Height,Weight and Vital Signs: Height 5 ft 10 in Pertinent Lab Results Pertinent Lab Results: Laboratory Tests 10/21/23 12:55 WBC 6.9 Hgb 12.8 Hct 39.1 Plt Count 230 Sodium 141 Potassium 4.3 Chloride 105 Carbon Dioxide 27 BUN 27 H Creatinine 0.76 Assessment and Plan Assessment Anesthesia Assessment: Chart Reviewed Documented by User: Heather Nichols MD 12/21/23 11:09 [facility] Active Problems Active Problems: All Active Problems Biliary colic (Acute) Genitourinary syndrome of menopause (Acute) Medication monitoring encounter (Acute) Urge incontinence of urine (Acute) JAMEL (stress urinary incontinence, female) (Acute) Cystocele (Acute) Pelvic floor weakness (Acute) Lichen sclerosus (Acute) Osteopenia (Acute) Skin lesion (Acute) Menopause (Acute) Cystocele without uterine prolapse (Acute) Urine incontinence (Acute) Lesion of vulva (Acute) Vulvar leukoplakia (Acute) Family history of osteoporosis (Acute) Well woman exam (Acute) Osteoarthritis of knees, bilateral (Acute) Osteoarthritis, generalized (Acute) Chronic pain syndrome (Acute) Spinal stenosis of lumbar region (Acute) Smoker Past Medical History Medical History Hammer toe Osteoarthritis, generalized Chronic pain syndrome Spinal stenosis of lumbar region Family History Family History Father Heart disease Stroke Maternal Grandfather Stroke Paternal Uncle Cancer Family history of problems with anesthesia: No Surgical History Surgical History Total knee replacement status H/O toe surgery H/O laminectomy S/P discectomy for herniated nucleus pulposus H/O: hysterectomy H/O knee surgery History of Problems with Anesthesia: No Social History Social History Household Members: Spouse Housing: House Alcohol intake: current Alcohol intake frequency: holidays/special occasions only Comment: counts correct Patient Tobacco Use Status: Current someday Tobacco user Tobacco use type: Cigarette Years Smoked: stopped few months ago Current occupational status: employed Current occupation: [employer] Sexual orientation: Straight/Heterosexual Gender identity: Female Meds Allergies Allergy/AdvReac Type Severity Reaction Status Date / Time sulfamethoxazole Allergy Intermediate N/V Verified 12/11/23 14:38 [From BACTRIM] trimethoprim [From BACTRIM] Allergy Intermediate N/V Verified 12/11/23 14:38 Sulfa (Sulfonamide Allergy Unknown diarrhea Verified 12/11/23 14:38 Antibiotics) gabapentin Allergy swelling Verified 12/11/23 14:38 of hands and feet oxycodone [Percocet] AdvReac Unknown stomach Verified 12/11/23 14:38 upset Home Medications ?Medication ?Instructions ?Recorded ?Confirmed ?Last Taken ?Type fluticasone propionate 50 1 spray intranasal DAILY 04/07/20 12/21/23 Unknown History mcg/actuation nasal spray,suspension cholecalciferol (vitamin D3) 125 125 mcg PO DAILY 07/17/22 12/21/23 Unknown History mcg (5,000 unit) capsule cyanocobalamin (vitamin B-12) 5,000 mcg PO DAILY 07/17/22 12/21/23 Unknown Histo ry 5,000 mcg capsule Exam Height,Weight and Vital Signs: Height 5 ft 10 in Weight 85.445 kg Vital Signs Temp Pulse Resp BP Pulse Ox O2 Del Method 97.8 F 76 16 137/70 95 Room Air 12/21/23 08:23 12/21/23 08:23 12/21/23 08:23 12/21/23 08:23 12/21/23 08:23 12/21/23 08:23 Airway Mallampati Class: II TM Dist: >3cm Neck ROM: Full Loose/Missing/Broken Teeth: No (Caps back Right and Left. Intact. Denies broken, loose, missing teeth) Heart: RRR Lungs: CTAB Assessment and Plan Assessment Anesthesia Assessment: Anesthesia Plan Discussed and Chart Reviewed Final Anesthetic Review Family History of Problems with Anesthesia: No History of Problems with Anesthesia: No NPO: Yes ASA Class: II Final Preanesthetic Review: No Changes in Pt Med Stat, Meds/Allgs Chart Reviewed, Consent Obtained/Reviewed and Anes Risks/Benef Reviewed Patient Risk: Low Procedure Risk: Low Assessment/Block/Sedation in SS: Assess/Block/Sedation-SS Anesthetic Plan Anesthetic Plan: GA Disposition: Standard PACU
--- NOTE | 2023-12-20 10:54 | MHC.SHP ---
Pre-Procedural Eval Section A - 24 Hr Update-Section A only Date of Service: 12/21/23 The patient is an INPATIENT: No Changes since office visit: No Cold of Flu in the past 2 weeks, No New Medical Problems, No Changes in Medication and No Patient answered all questions Section B - Complete if H&P > 30 days Chief Complaint: Calculus of bile duct with cholangitis, Allergies: Allergies Allergy/AdvReac Type Severity Reaction Status Date / Time sulfamethoxazole Allergy Intermediate N/V Verified 12/11/23 14:38 [From BACTRIM] trimethoprim [From BACTRIM] Allergy Intermediate N/V Verified 12/11/23 14:38 Sulfa (Sulfonamide Allergy Unknown diarrhea Verified 12/11/23 14:38 Antibiotics) gabapentin Allergy swelling Verified 12/11/23 14:38 of hands and feet acetaminophen [Percocet] AdvReac Unknown stomach Verified 12/11/23 14:38 upset oxycodone [Percocet] AdvReac Unknown stomach Verified 12/11/23 14:38 upset Plan I have reviewed the history and physical and performed a pertinent physical examination on my patient. No changes have occurred unless specified. Time Spent With Patient Time: Total time managing care of this patient today ____ minutes.
[2023-12-21] VITALS (12 sets, daily range): BP systolic 113–137; BP diastolic 54–70; PULSE 56–76; RESP 13–18; TEMP 36.1–37.1; O2SAT 90–100; BMI 27.0
[2023-12-21] MEDS: Lactated Ringers 1,000 ML 100 ML IVCONT ×2 (08:35)
[2023-12-21] MEDS: droPERidol 5 MG/2 ML VIAL 0.625 MG IVPUSH (11:36)
[2023-12-21] MEDS: fentaNYL citrate/PF 100 MCG/2 ML VIAL 25 MCG IVPUSH (11:50)
--- NOTE | 2023-12-26 08:40 | W.PM.OPN ---
Operative Note Operative Note Date of Service: 12/21/23 Narrative: Preoperative diagnosis: [] Recurrent biliary colic Postop diagnosis: [] The same Procedure [] laparoscopic cholecystectomy Surgeon: [] [facility] Secretary: [] Sandra Type of Anesthesia: [] General Indication for surgery: [] Gallbladder with omental adhesions to it. Large gallstone in gallbladder. Mildly corpulent abdomen. Findings: [] Patient brought to the operating room, placed on operative table in supine position, after adequate level of general anesthesia was induced, the patient's abdomen was prepped and draped in usual sterile fashion. Using a supraumbilical curvilinear incision, West technique was used to insufflate abdominal cavity to 15 mm of CO2 . Next upper midline and right subcostal ports were placed under direct laparoscopic view, the patient placed in reverse Trendelenburg position, and tilted to the left. Findings were as noted above. Gallbladder was grasped using laparoscopic graspers, and retracted superiorly and laterally. Omental adhesions swept off the gallbladder with the hilum was approached. Cystic artery and cystic duct were each identified, circumferentially skeletonized, traced directly into the gallbladder, and critical view obtained. Each was clipped proximally x2, distally x1, and transected. Gallbladder was then cauterized from the gallbladder fossa using Bovie. Specimen placed in an Endo-Catch bag, a retrieved through the umbilical port. Abdominal cavity was copiously irrigated, secured hemostasis. All ports removed under direct laparoscopic view. Wounds were closed in the following manner; umbilical wound is fascia reapproximated using interrupted 0 Vicryl sutures. Skin wounds were closed using subcuticular 4-0 Vicryl sutures followed by Steri-Strips and sterile dressings. Wounds were infiltrated 0.5% Marcaine at completion. Sponge, needle, and instrument counts reported correct. Patient tolerated the procedure well and emerged from anesthesia stable condition. EBL minimal
== END 2023-12-21 12:45 | disposition home or self-care (01) ==
PROVIDERS: PCP Internal Medicine; Visit Provider Surgery
PROC: 0FT44ZZ Resection of Gallbladder, Percutaneous Endoscopic Approach (ICD-10-PCS; CPT 47562; principal; 2023-12-21 10:00)
DX: K80.10 Calculus of gallbladder with chronic cholecystitis without obstruction (principal); K82.8 Other specified diseases of gallbladder; K21.9 Gastro-esophageal reflux disease without esophagitis; E65 Localized adiposity; G89.4 Chronic pain syndrome; M15.9 Polyosteoarthritis, unspecified; M48.061 Spinal stenosis, lumbar region without neurogenic claudication; Z79.899 Other long term (current) drug therapy; Z88.2 Allergy status to sulfonamides; Z88.8 Allergy status to other drugs, medicaments and biological substances; Z88.5 Allergy status to narcotic agent; Z98.890 Other specified postprocedural states; Z87.891 Personal history of nicotine dependence
CPT/HCPCS: 47562; 88304; J0131; J0690; J1100; J1596; J1790; J1885; J2250; J2371; J2405; J2704; J2795; J3010

== ENCOUNTER → 2023-12-21 07:57 | Outpatient (BNV) | payer OTHER, SELFPAY | PROVIDERS: PCP Internal Medicine; Visit Provider Surgery | DX: K80.30 Calculus of bile duct with cholangitis, unspecified, without obstruction (principal) | CPT/HCPCS: 47562 ==

== ENCOUNTER 2023-12-31 08:57 | Outpatient (AMB) | payer OTHER, SELFPAY ==
--- NOTE | 2023-12-31 09:06 | A.OFFVIS_ITS ---
Intake Visit Reasons: s/p lap vs open cholecystectomy Intake Note: Patient here s/p lap seema. Reports incisions healing well. Patient c/o: reports did not experience pain after surgery. SX: 12-21-23. 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 She has minimal incisional discomfort. She is tolerating her diet. She is having regular bowel habits. Patient has been increasing her activity level. She would like to commence work tomorrow. [facility] Medical History Hammer toe Osteoarthritis, generalized Chronic pain syndrome Spinal stenosis of lumbar region Surgical History Total knee replacement status H/O toe surgery H/O laminectomy S/P discectomy for herniated nucleus pulposus H/O: hysterectomy H/O knee surgery Family History Father Heart disease Stroke Maternal Grandfather Stroke Paternal Uncle Cancer Social History Household Members: Spouse Housing: House Alcohol intake: current Alcohol intake frequency: holidays/special occasions only Comment: counts correct Patient Tobacco Use Status: Current someday Tobacco user Tobacco use type: Cigarette Years Smoked: stopped few months ago Current occupational status: employed Current occupation: [employer] Sexual orientation: Straight/Heterosexual Gender identity: Female Physical Exam Eyes Other: Anicteric GI Other: Abdomen is soft, benign. All wounds clean dry and intact Assessment & Plan Assessment & Plan (1) Status post laparoscopic cholecystectomy: Code(s): Z90.49 - Acquired absence of other specified parts of digestive tract Category: Medical Plan Patient has been given local instructions, an note for work with 3 weeks light duty, and will otherwise follow-up p.r.n.. All questions answered. Coding Level of Care Code Global (95498) Diagnoses Status post laparoscopic cholecystectomy Z90.49
== END 2023-12-31 09:14 | disposition home or self-care (01) ==
PROVIDERS: PCP Internal Medicine; Visit Provider Surgery
DX: Z90.49 Acquired absence of other specified parts of digestive tract (principal)
CPT/HCPCS: 99024

== ENCOUNTER → 2023-12-31 08:57 | Outpatient (BNVA) | payer OTHER, SELFPAY | PROVIDERS: PCP Internal Medicine; Visit Provider Surgery | DX: N39.46 Mixed incontinence (principal); N81.10 Cystocele, unspecified; N81.89 Other female genital prolapse; Z79.899 Other long term (current) drug therapy | CPT/HCPCS: 51798; 57160; 81003 ==

== ENCOUNTER 2023-12-31 15:08 | Outpatient (AMB) | payer OTHER, SELFPAY ==
--- NOTE | 2023-12-31 15:33 | MHC.OFFVIS ---
Intake Visit Reasons: 6m follow up Allergies gabapentin Allergy (Intermediate, Verified 02/04/24 13:24) swelling of hands and feet Sulfa (Sulfonamide Antibiotics) Allergy (Intermediate, Verified 02/04/24 13:24) diarrhea sulfamethoxazole [From BACTRIM] Allergy (Intermediate, Verified 12/31/23 09:07) N/V trimethoprim [From BACTRIM] Allergy (Intermediate, Verified 12/31/23 09:07) N/V oxycodone [Percocet] Adverse Reaction (Intermediate, Verified 02/04/24 13:24) stomach upset HPI Comments Details: 12/31/23-- Sweta is a 63-year-old female who presents to the office for 6-months follow-up for cystocele with pessary maintenance, OAB and pelvic floor weakness. She states that she feels that for the last several weeks pessary is laying lower especially when standing. On exam Pessary refitting - pessary removed and new pessary size 4 ring/wo support. Will continue Myrbetriq 50 mg qd. Review of chart 07/06/23--Sweta is a 62-year-old female who presents to the office for 6-months follow-up for cystocele with pessary maintenance, OAB and pelvic floor weakness. She states that she had knee surgery 6 weeks ago, she states that the pessary kept dropping low so she removed it and has recently put it back in about 3-4 days. She has been doing kegels. Evaluation today-- UA - no signs of infection. Plan: Cont Myrbetriq 50 mg QD 11/30/22-- The patient was last seen on 05/25/22. She states she has been managing the pessary, and is able to remove and clean it. States having frequent voiding episodes and irritated skin due to wiping. The patient mentions occasional urinary episodes after every hour or two. Mentions drinking adequate amount of water. At once occasion the patient had episodes of nocturia every hour or 20 minutes. Has nocturia episodes which she links with increased fluid consumption during the day. The patient is using estradiol cream. [facility] Medical History Hammer toe Osteoarthritis, generalized Chronic pain syndrome Spinal stenosis of lumbar region Surgical History H/O colonoscopy Hx laparoscopic cholecystectomy Total knee replacement status H/O toe surgery H/O laminectomy S/P discectomy for herniated nucleus pulposus H/O: hysterectomy H/O knee surgery Family History Father Heart disease Stroke Maternal Grandfather Stroke Paternal Uncle Cancer Social History Household Members: Spouse Housing: House Alcohol intake: current Alcohol intake frequency: holidays/special occasions only Comment: counts correct Patient Tobacco Use Status: Current someday Tobacco user Tobacco use type: Cigarette Cigarettes Per Day: 3 Years Smoked: stopped few months ago Use of substances other than those prescribed or required for medical reasons: No Are you DNR?: No Advance Directives: No Advance Directives Information Provided: Yes Patient : No Current occupational status: employed Current occupation: [employer] Sexual orientation: Straight/Heterosexual Gender identity: Female Review of Systems Const All systems reviewed & are unremarkable except as noted in HPI and below Reports no additional complaints Eyes Reports no additional complaints ENT Reports no additional complaints Card Reports no additional complaints Resp Reports no additional complaints GI Reports no additional complaints Reports as per HPI Musc Reports no additional complaints Skin/Breast Reports system reviewed and no additional complaints, except as documented Neuro Reports no additional complaints Psych Reports no additional complaints Endo Reports no additional complaints Ba/Lymph Reports no additional complaints Aller/Immun Reports no additional complaints Office Procedures Post Void Residual Post Residual Void Details: bladder scanned 133mls Post Void Residual (PVR): 133 22653-Gnth Void Residual by ultrasound Results AMB Urinalysis, Automated UA Leukoctes 0 Ana/uL Last Edit by Donnie Martínez LPN on 12/31/23 15:45 UA Nitrite Negative Last Edit by Donnie Martínez LPN on 12/31/23 15:45 UA Urobilinogen 0.2 mg/dL Last Edit by Donnie Martínez LPN on 12/31/23 15:45 UA Protein 15 mg/dL Last Edit by Donnie Martínez LPN on 12/31/23 15:45 UA pH 6.0 Last Edit by Donnie Martínez LPN on 12/31/23 15:45 UA Blood 0 Carlos/uL Last Edit by Donnie Martínez LPN on 12/31/23 15:45 UA Specific [place] 1.025 Last Edit by Donnie Martínez LPN on 12/31/23 15:45 UA Ketone Negative Last Edit by Donnie Martínez LPN on 12/31/23 15:45 UA Bilirubin 0 mg/dL Last Edit by Donnie Martínez LPN on 12/31/23 15:45 UA Glucose 0 mg/dL Last Edit by Donnie Martínez LPN on 12/31/23 15:45 Results Reviewed Results Reviewed: Laboratory Last Values Urine pH (Auto) 6.0 12/31/23 15:44 Specific [place] (Auto) 1.025 12/31/23 15:44 Urine Protein (Auto) 15 mg/dL 12/31/23 15:44 Glucose (UA)(Auto) 0 mg/dL 12/31/23 15:44 Urine Ketones (Auto) Negative 12/31/23 15:44 Urine Blood (Auto) 0 Carlos/uL 12/31/23 15:44 Urine Nitrite (Auto) Negative 12/31/23 15:44 Urine Bilirubin (Auto) 0 mg/dL 12/31/23 15:44 Urine Urobilinogen (Auto) 0.2 mg/dL 12/31/23 15:44 Leukocyte Esterase (Auto) 0 Ana/uL 12/31/23 15:44 Assessment & Plan Assessment & Plan (1) Urge incontinence of urine: Code(s): N39.41 - Urge incontinence Category: Medical (2) JAMEL (stress urinary incontinence, female): Code(s): N39.3 - Stress incontinence (female) (male) Category: Medical (3) Cystocele: Category: Medical (4) Pelvic floor weakness: Code(s): N81.89 - Other female genital prolapse Category: Medical Plan Cont Myrbetriq 50 mg QD Follow-up after 6 months or sooner if needed. Orders: Orders AMB Post Void Residual by ultrasound 12/31/23 N39.41 - Urge incontinence, N39.3 - Stress incontinence (female) (male), N81.89 - Other female genital prolapse, R32 - Unspecified urinary incontinence AMB Urinalysis Automated 12/31/23 N39.41 - Urge incontinence, N39.3 - Stress incontinence (female) (male), N81.89 - Other female genital prolapse, R32 - Unspecified urinary incontinence Patient Instructions: The patient had an opportunity to ask questions regarding treatment plan. The patient expressed understanding and agreement with the above treatment plan. The patient is aware they should contact our office by phone for worsening of their current condition or the appearance of new symptoms. Compliance is encouraged with any medications and followup testing that is ordered. It is a privilege to be allowed the opportunity to participate in the urologic care of your patient. If you have any questions or concerns regarding treatment for the above conditions please do not hesitate to contact me. The office telephone contact is [phone]. This note is constructed in part using voice recognition software. While every effort has been made to ensure accuracy top lift cutter errors may have been included. Yours sincerely, Nick Nunez MD Coding Level of Care Code Est Pt Level 3 (36875) Diagnoses Urge incontinence of urine N39.41 JAMEL (stress urinary incontinence, female) N39.3 Cystocele Pelvic floor weakness N81.89 CPT Codes Pessary Device Insert - CPT: 00717-Wlxfote device insert ([id number]) Post Residual Void - PVR CPT Code: 23183-Avev Void Residual by ultrasound ([id number]) Comment Pessary Device Insert Details: Removed old pessary. Refitted for larger size. [place] ring size 4- wo/support inserted [id number] device insert
== END 2023-12-31 16:03 | disposition home or self-care (01) ==
PROVIDERS: PCP Internal Medicine; Visit Provider Urology
DX: N39.41 Urge incontinence (principal); N39.3 Stress incontinence (female) (male); N81.89 Other female genital prolapse
CPT/HCPCS: 57160; 99213

== ENCOUNTER 2024-01-21 14:22 | Outpatient (REF) | payer OTHER, SELFPAY | END 2024-01-21 14:23 | disposition home or self-care (01) | LOC: HO.MAMMO 14:22 | PROVIDERS: PCP Internal Medicine; Visit Provider Internal Medicine | DX: Z12.31 Encounter for screening mammogram for malignant neoplasm of breast (principal) | CPT/HCPCS: 77063; 77067 ==

== ENCOUNTER → 2024-01-21 14:45 | Outpatient (BNV) | payer OTHER, SELFPAY | PROVIDERS: PCP Internal Medicine; Visit Provider Radiology Diagnostic Radiology | DX: Z12.31 Encounter for screening mammogram for malignant neoplasm of breast (principal) | CPT/HCPCS: 77063; 77067 ==

== ENCOUNTER 2024-02-06 08:23 | Day surgery (SDC) | payer OTHER, SELFPAY ==
[2024-02-04 13:29] VITALS: BMI 27.6
--- NOTE | 2024-02-05 12:10 | HO.ANESPROP2 ---
HPI - Anesthesia Eval Consult details Narrative: 63yo F for Upper Endoscopy and Colonoscopy [facility] Active Problems Active Problems: All Active Problems Status post laparoscopic cholecystectomy (Acute) Biliary colic (Acute) Genitourinary syndrome of menopause (Acute) Medication monitoring encounter (Acute) Urge incontinence of urine (Acute) JAMEL (stress urinary incontinence, female) (Acute) Cystocele (Acute) Pelvic floor weakness (Acute) Lichen sclerosus (Acute) Osteopenia (Acute) Skin lesion (Acute) Menopause (Acute) Cystocele without uterine prolapse (Acute) Urine incontinence (Acute) Lesion of vulva (Acute) Vulvar leukoplakia (Acute) Family history of osteoporosis (Acute) Well woman exam (Acute) Osteoarthritis of knees, bilateral (Acute) Osteoarthritis, generalized (Acute) Chronic pain syndrome (Acute) Spinal stenosis of lumbar region (Acute) Past Medical History Medical History Hammer toe Osteoarthritis, generalized Chronic pain syndrome Spinal stenosis of lumbar region Family History Family History Father Heart disease Stroke Maternal Grandfather Stroke Paternal Uncle Cancer Family history of problems with anesthesia: No Surgical History Surgical History H/O colonoscopy Hx laparoscopic cholecystectomy Total knee replacement status H/O toe surgery H/O laminectomy S/P discectomy for herniated nucleus pulposus H/O: hysterectomy H/O knee surgery History of Problems with Anesthesia: No Social History Social History Household Members: Spouse Housing: House Alcohol intake: current Alcohol intake frequency: holidays/special occasions only Comment: counts correct Patient Tobacco Use Status: Current someday Tobacco user Tobacco use type: Cigarette Cigarettes Per Day: 3 Years Smoked: stopped few months ago Use of substances other than those prescribed or required for medical reasons: No Are you DNR?: No Advance Directives: No Advance Directives Information Provided: Yes Patient : No Current occupational status: employed Current occupation: [employer] Sexual orientation: Straight/Heterosexual Gender identity: Female Meds Allergies Allergy/AdvReac Type Severity Reaction Status Date / Time gabapentin Allergy Intermediate swelling Verified 02/04/24 13:24 of hands and feet Sulfa (Sulfonamide Allergy Intermediate diarrhea Verified 02/04/24 13:24 Antibiotics) sulfamethoxazole Allergy Intermediate N/V Verified 12/31/23 09:07 [From BACTRIM] trimethoprim [From BACTRIM] Allergy Intermediate N/V Verified 12/31/23 09:07 oxycodone [Percocet] AdvReac Intermediate stomach Verified 02/04/24 13:24 upset Home Medications ?Medication ?Instructions ?Recorded ?Confirmed ?Last Taken ?Type fluticasone propionate 50 1 spray intranasal DAILY 04/07/20 02/04/24 Unknown History mcg/actuation nasal spray,suspension cholecalciferol (vitamin D3) 125 125 mcg PO DAILY 07/17/22 02/04/24 Unknown History mcg (5,000 unit) capsule cyanocobalamin (vitamin B-12) 5,000 mcg PO DAILY 07/17/22 02/04/24 Unknown History 5,000 mcg capsule cetirizine 10 mg tablet (Zyrtec) 10 mg PO DAILY 02/04/24 02/04/24 Unknown History ketorolac 10 mg tablet 10 mg PO Q6H PRN Pain 02/04/24 02/04/24 Unknown History omega 7-trp-uhc-fish oil 300 1 cap PO DAILY 02/04/24 02/06/24 01/16/24 History mg-1,000 mg capsule (Fish Oil) Exam Height,Weight and Vital Signs: Height 5 ft 10.5 in Weight 88.564 kg Assessment and Plan Assessment Anesthesia Assessment: Chart Reviewed Final Anesthetic Review Family History of Problems with Anesthesia: No History of Problems with Anesthesia: No
[2024-02-06 08:32] VITALS: BMI 26.3
[2024-02-06 08:36] VITALS: BMI 26.3
[2024-02-06 08:53] VITALS: BP 135/72; PULSE 66; RESP 16; TEMP 36.2; O2SAT 96
[2024-02-06] MEDS: Lactated Ringers 1,000 ML 100 ML IVCONT (09:09)
--- NOTE | 2024-02-06 09:26 | HO.ANESPROP2 ---
COUNT INCLUDES THE [facility] Active Problems Active Problems: All Active Problems Status post laparoscopic cholecystectomy (Acute) Biliary colic (Acute) Genitourinary syndrome of menopause (Acute) Medication monitoring encounter (Acute) Urge incontinence of urine (Acute) JAMEL (stress urinary incontinence, female) (Acute) Cystocele (Acute) Pelvic floor weakness (Acute) Lichen sclerosus (Acute) Osteopenia (Acute) Skin lesion (Acute) Menopause (Acute) Cystocele without uterine prolapse (Acute) Urine incontinence (Acute) Lesion of vulva (Acute) Vulvar leukoplakia (Acute) Family history of osteoporosis (Acute) Well woman exam (Acute) Osteoarthritis of knees, bilateral (Acute) Osteoarthritis, generalized (Acute) Chronic pain syndrome (Acute) Spinal stenosis of lumbar region (Acute) Past Medical History Medical History Hammer toe Osteoarthritis, generalized Chronic pain syndrome Spinal stenosis of lumbar region Functional capacity: independent ambulation Patient : No Family History Family History Father Heart disease Stroke Maternal Grandfather Stroke Paternal Uncle Cancer Family history of problems with anesthesia: No Surgical History Surgical History H/O colonoscopy Hx laparoscopic cholecystectomy Total knee replacement status H/O toe surgery H/O laminectomy S/P discectomy for herniated nucleus pulposus H/O: hysterectomy H/O knee surgery History of Problems with Anesthesia: No Social History Social History Household Members: Spouse Housing: House Alcohol intake: current Alcohol intake frequency: holidays/special occasions only Comment: counts correct Patient Tobacco Use Status: Current someday Tobacco user Tobacco use type: Cigarette Cigarettes Per Day: 3 Years Smoked: stopped few months ago Use of substances other than those prescribed or required for medical reasons: No Are you DNR?: No Advance Directives: No Advance Directives Information Provided: Yes Patient : No (hysterectomy) Current occupational status: employed Current occupation: [employer] [place] [employer] Sexual orientation: Straight/Heterosexual Gender identity: Female Meds Allergies Allergy/AdvReac Type Severity Reaction Status Date / Time gabapentin Allergy Intermediate swelling Verified 02/04/24 13:24 of hands and feet Sulfa (Sulfonamide Allergy Intermediate diarrhea Verified 02/04/24 13:24 Antibiotics) sulfamethoxazole Allergy Intermediate N/V Verified 12/31/23 09:07 [From BACTRIM] trimethoprim [From BACTRIM] Allergy Intermediate N/V Verified 12/31/23 09:07 oxycodone [Percocet] AdvReac Intermediate stomach Verified 02/04/24 13:24 upset Active Medications: Current Medications Lactated Ringer's (Lr) 1,000 mls @ 100 mls/hr IVCONT .Q10H ASTRID Last Admin: 02/06/24 09:09 Dose: 100 mls/hr Sodium Biphosphate/Sodium Phosphate (Sodium Phosphate,[place]-Dibasic 133 Ml Enema) [address] ONCE PRN PRN Reason: Poor Colonoscopy Prep Results Home Medications ?Medication ?Instructions ?Recorded ?Confirmed ?Last Taken ?Type fluticasone propionate 50 1 spray intranasal DAILY 04/07/20 02/04/24 Unknown History mcg/actuation nasal spray,suspension cholecalciferol (vitamin D3) 125 125 mcg PO DAILY 07/17/22 02/04/24 Unknown History mcg (5,000 unit) capsule cyanocobalamin (vitamin B-12) 5,000 mcg PO DAILY 07/17/22 02/04/24 Unknown History 5,000 mcg capsule cetirizine 10 mg tablet (Zyrtec) 10 mg PO DAILY 02/04/24 02/04/24 Unknown History ketorolac 10 mg tablet 10 mg PO Q6H PRN Pain 02/04/24 02/04/24 Unknown History omega 9-udh-efi-fish oil 300 1 cap PO DAILY 02/04/24 02/06/24 01/16/24 History mg-1,000 mg capsule (Fish Oil) Exam Height,Weight and Vital Signs: Height 5 ft 10 in Weight 83.234 kg Last Vital Signs Temp 97.2 F 02/06/24 08:53 Pulse 66 02/06/24 08:53 Resp 16 02/06/24 08:53 BP 135/72 02/06/24 08:53 Pulse Ox 96 02/06/24 08:53 O2 Del Method Room Air 02/06/24 08:53 Airway Mallampati Class: II TM Dist: >3cm Neck ROM: Full Heart: RRR Lungs: CTA Assessment and Plan Assessment Anesthesia Assessment: Anesthesia Plan Discussed Final Anesthetic Review Family History of Problems with Anesthesia: No History of Problems with Anesthesia: No NPO: Yes ASA Class: II Final Preanesthetic Review: Meds/Allgs Chart Reviewed, Consent Obtained/Reviewed and Anes Risks/Benef Reviewed Patient Risk: Low Procedure Risk: Low Anesthetic Plan Anesthetic Plan: MAC: Disposition: Standard PACU
[2024-02-06 11:44] VITALS: BP 118/65; PULSE 63; RESP 16; TEMP 36.7; O2SAT 98
--- NOTE | 2024-02-06 11:48 | PM.OP ---
Brief Operative Note Date of Service: 02/06/24 Pre-op diagnosis: GERD, Screening Post-op diagnosis: other (Hiatal hernia, Gastritis, R/O Harrison's and Celiac disease, Colon polyps, R/O microscopic colitis) Procedure: EGD with bx, Colonoscopy to the cecum and TI with biopsies, and cold snare polypectomies x 2 Surgeon: Charles Diaz MD Anesthesia: MAC Was an Automatic Driller And Reamer used for this Procedure?: No Estimated blood loss (mL): 2.0 Pathology: other (A. Descending duodenum B. Gastric antrum C. EG Junction at 38cm D. Ascending colon E. Descending colon F. Polyp at 20cm G. Polyp at 15cm) Condition: stable Disposition: PACU
[2024-02-06 12:00] VITALS: BP 123/62; PULSE 59; RESP 16; TEMP 36.1; O2SAT 98
--- NOTE | 2024-02-06 12:10 | HO.POSTANES ---
Post Anesthesia Evaluation Post Anesthesia Evaluation Date of Service: 02/06/24 Vital Signs: Vital Signs Temp Pulse Resp BP Pulse Ox O2 Del Method 02/06/24 12:00 97.0 F 59 16 123/62 98 Room Air 02/06/24 11:44 98.0 F 63 16 118/65 98 Room Air 02/06/24 08:53 97.2 F 66 16 135/72 96 Room Air Anesthesia: Monitored Mental Status: Awake Pain Control: Satisfactory Nausea/Vomiting: None Hydration: Adequate Anesthesia-Related Issues: No Anes. Related Issues
--- NOTE | 2024-02-06 12:18 | P.CONAN_ITS ---
[facility] Active Problems Active Problems: All Active Problems Status post laparoscopic cholecystectomy (Acute) Biliary colic (Acute) Genitourinary syndrome of menopause (Acute) Medication monitoring encounter (Acute) Urge incontinence of urine (Acute) JAMEL (stress urinary incontinence, female) (Acute) Cystocele (Acute) Pelvic floor weakness (Acute) Lichen sclerosus (Acute) Osteopenia (Acute) Skin lesion (Acute) Menopause (Acute) Cystocele without uterine prolapse (Acute) Urine incontinence (Acute) Lesion of vulva (Acute) Vulvar leukoplakia (Acute) Family history of osteoporosis (Acute) Well woman exam (Acute) Osteoarthritis of knees, bilateral (Acute) Osteoarthritis, generalized (Acute) Chronic pain syndrome (Acute) Spinal stenosis of lumbar region (Acute) Past Medical History Medical History Hammer toe Osteoarthritis, generalized Chronic pain syndrome Spinal stenosis of lumbar region Functional capacity: independent ambulation Family History Family History Father Heart disease Stroke Maternal Grandfather Stroke Paternal Uncle Cancer Family history of problems with anesthesia: No Surgical History Surgical History H/O colonoscopy Hx laparoscopic cholecystectomy Total knee replacement status H/O toe surgery H/O laminectomy S/P discectomy for herniated nucleus pulposus H/O: hysterectomy H/O knee surgery History of Problems with Anesthesia: No Social History Social History Household Members: Spouse Housing: House Alcohol intake: current Alcohol intake frequency: holidays/special occasions only Comment: counts correct Patient Tobacco Use Status: Current someday Tobacco user Tobacco use type: Cigarette Cigarettes Per Day: 3 Years Smoked: stopped few months ago Use of substances other than those prescribed or required for medical reasons: No Are you DNR?: No Advance Directives: No Advance Directives Information Provided: Yes Patient : No Current occupational status: employed Current occupation: [employer] [place] [employer] Sexual orientation: Straight/Heterosexual Gender identity: Female Meds Allergies Allergy/AdvReac Type Severity Reaction Status Date / Time gabapentin Allergy Intermediate swelling Verified 02/04/24 13:24 of hands and feet Sulfa (Sulfonamide Allergy Intermediate diarrhea Verified 02/04/24 13:24 Antibiotics) sulfamethoxazole Allergy Intermediate N/V Verified 12/31/23 09:07 [From BACTRIM] trimethoprim [From BACTRIM] Allergy Intermediate N/V Verified 12/31/23 09:07 oxycodone [Percocet] AdvReac Intermediate stomach Verified 02/04/24 13:24 upset Active Medications: Current Medications Lactated Ringer's (Lr) 1,000 mls @ 100 mls/hr IVCONT .Q10H ASTRID Last Admin: 02/06/24 09:09 Dose: 100 mls/hr Sodium Biphosphate/Sodium Phosphate (Sodium Phosphate,[place]-Dibasic 133 Ml Enema) 133 ml [place] ONCE PRN PRN Reason: Poor Colonoscopy Prep Results Home Medications ?Medication ?Instructions ?Recorded ?Confirmed ?Last Taken ?Type fluticasone propionate 50 1 spray intranasal DAILY 04/07/20 02/04/24 Unknown History mcg/actuation nasal spray,suspension cholecalciferol (vitamin D3) 125 125 mcg PO DAILY 07/17/22 02/04/24 Unknown History mcg (5,000 unit) capsule cyanocobalamin (vitamin B-12) 5,000 mcg PO DAILY 07/17/22 02/04/24 Unknown History 5,000 mcg capsule cetirizine 10 mg tablet (Zyrtec) 10 mg PO DAILY 02/04/24 02/04/24 Unknown History ketorolac 10 mg tablet 10 mg PO Q6H PRN Pain 02/04/24 02/04/24 Unknown History omega 1-url-bdd-fish oil 300 1 cap PO DAILY 02/04/24 02/06/24 01/16/24 History mg-1,000 mg capsule (Fish Oil) Exam Height,Weight and Vital Signs: Height 5 ft 10 in Weight 83.234 kg Last Vital Signs Temp 97.0 F 02/06/24 12:00 Pulse 59 02/06/24 12:00 Resp 16 02/06/24 12:00 BP 123/62 02/06/24 12:00 Pulse Ox 98 02/06/24 12:00 O2 Del Method Room Air 02/06/24 12:00 Assessment and Plan Final Anesthetic Review Family History of Problems with Anesthesia: No History of Problems with Anesthesia: No
--- NOTE | 2024-02-06 12:21 | OP_ITS ---
DATE OF SERVICE: 02/06/2024 SURGEON: Charles Diaz MD INDICATIONS: The patient presents for evaluation of gastroesophageal reflux, intermittent diarrhea, personal history of tubular adenoma of the colon, and colorectal cancer screening. Full consent has been obtained from her for both procedures, including risks of bleeding and perforation. PREOPERATIVE DIAGNOSIS: POSTOPERATIVE DIAGNOSIS: PROCEDURE PERFORMED: Esophagogastroduodenoscopy with biopsies, and colonoscopy to the cecum and terminal ileum with biopsies, and cold snare polypectomy x2. ESTIMATED BLOOD LOSS: COMPLICATIONS: ANESTHESIA: Monitored anesthesia care. ASSISTANTS: SPECIMENS: PREOPERATIVE DIAGNOSES: Gastroesophageal reflux, intermittent diarrhea, history of tubular adenoma of the colon, and colorectal cancer screening. POSTOPERATIVE DIAGNOSES: Gastroesophageal reflux, intermittent diarrhea, history of tubular adenoma of the colon, colorectal cancer screening, small hiatal hernia, rule out Harrison esophagus, mild gastritis, rule out celiac disease, rule out microscopic colitis, colon polyps, diverticulosis, and internal hemorrhoids. DESCRIPTION OF PROCEDURE: The patient was placed in the left lateral decubitus position. The Olympus video gastroscope was passed in the posterior oropharynx and upper esophagus under direct vision. The scope was passed slowly into the distal esophagus. The gastroesophageal junction appeared at 38 cm. There was some slight irregularity consistent with reflux and possibly small, less than 1 cm areas of Harrison mucosa. There was no evidence of any esophagitis nor any lesions. There was a small hiatal hernia. The scope was advanced to the pylorus and the duodenum was cannulated to the descending portion. The duodenum including the bulb appeared normal without mass or ulceration. The scope was slowly withdrawn. The duodenum including the bulb appeared normal without mass or ulceration. Biopsies were obtained from the 2nd and 3rd portions of duodenum. The scope was withdrawn back in the stomach. The gastric antrum had some mild areas of gastritis with erythema, edema, and minimal friability. There was no erosions or ulceration. There was good peristalsis. Biopsies were obtained from the gastric antrum. The scope was retroflexed, visualizing the proximal stomach carefully, which appeared normal, without any sign of mass or ulceration. The scope was straightened and withdrawn back to the esophagus. Biopsies were obtained at the EG junction at 38 cm. Proximal to this, the esophageal mucosa appeared normal. The scope was withdrawn from the patient. She was turned around for the colonoscopy. The digital rectal exam revealed no abnormalities. The Olympus video pediatric colonoscope was then entered into the rectum and advanced easily to the cecum. Once in the cecum, I did identify normal-appearing cecal pouch with appendiceal orifice and a normal-appearing ileocecal valve. The terminal ileum was cannulated and appeared normal. Scope was withdrawn back in the colon. The entire cecum and ileocecal valve appeared normal. The scope was slowly withdrawn assessing all mucosal surfaces carefully. Preparation was excellent. I did not visualize any sign of colitis nor angiodysplasia. Random biopsies were obtained in the ascending and descending colon. At 20 cm, was an approximately 5 or 6 mm polyp, which was removed by cold snare polypectomy and recovered by suction. The polypectomy site appeared clean, without any sign of residual polyp nor significant bleeding. At 15 cm, was a flat, approximately 5 or 6 mm polyp, which was removed by cold snare polypectomy and recovered by suction. The polypectomy site appeared clean, without any sign of residual polyp nor significant bleeding. I did not visualize any other polyps. There was a mild amount of sigmoid diverticulosis. In the rectum, scope was retroflexed, visualizing small internal hemorrhoids, but no other pathology. The rectal mucosa appeared normal. Scope was straightened and withdrawn from the patient. She tolerated both procedures well and was returned to the recovery area in stable condition. IMPRESSION: 1. Colon polyps. 2. Diverticulosis. 3. Internal hemorrhoids. 4. Rule out microscopic colitis. 5. Small hiatal hernia, gastroesophageal reflux, rule out Harrison esophagus. 6. Rule out celiac disease. 7. Mild gastritis. PLAN: The results of the biopsy will be checked. I would recommend a repeat colonoscopy in 5 years. She was advised not to use any aspirin and NSAIDs for 1 week. She does report that she has been feeling much better after her recent cholecystectomy. If things are stable, she will, otherwise, see me on a p.r.n. basis. MD RAMO Pires/BENNY / [phone]
== END 2024-02-06 12:32 | disposition home or self-care (01) ==
PROVIDERS: PCP Internal Medicine; Visit Provider Internal Medicine
PROC: (CPT 45385; principal; 2024-02-06 09:40)
DX: Z12.11 Encounter for screening for malignant neoplasm of colon (principal); Z86.010 Personal history of colon polyps; D12.5 Benign neoplasm of sigmoid colon; K63.5 Polyp of colon; K57.30 Diverticulosis of large intestine without perforation or abscess without bleeding; K64.8 Other hemorrhoids; R19.7 Diarrhea, unspecified; K21.9 Gastro-esophageal reflux disease without esophagitis; K29.60 Other gastritis without bleeding; K44.9 Diaphragmatic hernia without obstruction or gangrene; K80.20 Calculus of gallbladder without cholecystitis without obstruction; Z79.51 Long term (current) use of inhaled steroids; Z79.899 Other long term (current) drug therapy; Z88.5 Allergy status to narcotic agent; Z88.8 Allergy status to other drugs, medicaments and biological substances; F17.210 Nicotine dependence, cigarettes, uncomplicated; Z98.890 Other specified postprocedural states
CPT/HCPCS: 45385; 45380; 43239; 88305; 88313; 88342; J2704

== ENCOUNTER 2024-03-17 13:45 | Outpatient (AMB) | payer OTHER, SELFPAY ==
--- NOTE | 2024-03-17 14:00 | MHC.OFFVIS ---
Intake Visit Reasons: Follow up/Bacteria Intake Note: Patient is present for f/u bacteria Urology Medication:myrbetriq, estradiol, vitamin b12 Antibiotic Allergy:sulfa, bactrim Blood Thinner:none Financial Agent Required: No Allergies gabapentin Allergy (Intermediate, Verified 03/17/24 14:09) swelling of hands and feet Sulfa (Sulfonamide Antibiotics) Allergy (Intermediate, Verified 03/17/24 14:09) diarrhea sulfamethoxazole [From BACTRIM] Allergy (Intermediate, Verified 03/17/24 14:09) N/V trimethoprim [From BACTRIM] Allergy (Intermediate, Verified 03/17/24 14:09) N/V oxycodone [Percocet] Adverse Reaction (Intermediate, Verified 03/17/24 14:09) stomach upset Medication List - Last Reconciled 03/17/24 by Nick Nunez MD cetirizine (Zyrtec) 10 mg PO DAILY cholecalciferol (vitamin D3) 125 mcg PO DAILY clobetasol 0.05% 1 appl topical DAILY 1 week clotrimazole-betamethasone 1-0.05 % 1 appl topical BID cyanocobalamin (vitamin B-12) 5,000 mcg PO DAILY estradiol 0.01%(0.1mg/gram) apply thin coat daily 30 days fluticasone propionate 50 mcg/actuation 1 spray intranasal DAILY ketorolac 10 mg PO Q6H PRN mirabegron ER (Myrbetriq) 50 mg PO DAILY omega 6-axz-vep-fish oil 300-1,000 mg (Fish Oil) 1 cap PO DAILY HPI Comments Details: 03/17/2024--Sweta is followed for pelvic floor weakness and cystocele with overactive bladder symptoms. She is on Myrbetriq 50 mg daily. Vaginal cystocele is managed with pessary. She states that she has had a flare in her lichen sclerosis symptoms. She uses clobetasol that is prescribed by Dr. Raya but it is not helping. She states that when she urinates it stoddard on the skin. Urinalysis is negative. I want her to follow-up with [facility] to be further evaluated. I will empirically try a steroid cream with an antifungal component to see if this may be helpful. Review of chart 12/31/23-- Sweta is a 63-year-old female who presents to the office for 6-months follow-up for cystocele with pessary maintenance, OAB and pelvic floor weakness. She states that she feels that for the last several weeks pessary is laying lower especially when standing. On exam Pessary refitting - pessary removed and new pessary size 4 ring/wo support. Will continue Myrbetriq 50 mg qd. 07/06/23--Sweta is a 62-year-old female who presents to the office for 6-months follow-up for cystocele with pessary maintenance, OAB and pelvic floor weakness. She states that she had knee surgery 6 weeks ago, she states that the pessary kept dropping low so she removed it and has recently put it back in about 3-4 days. She has been doing kegels. Evaluation today-- UA - no signs of infection. Plan: Cont Myrbetriq 50 mg QD 11/30/22-- The patient was last seen on 05/25/22. She states she has been managing the pessary, and is able to remove and clean it. States having frequent voiding episodes and irritated skin due to wiping. The patient mentions occasional urinary episodes after every hour or two. Mentions drinking adequate amount of water. At once occasion the patient had episodes of nocturia every hour or 20 minutes. Has nocturia episodes which she links with increased fluid consumption during the day. The patient is using estradiol cream. [facility] Medical History Hammer toe Osteoarthritis, generalized Chronic pain syndrome Spinal stenosis of lumbar region Surgical History H/O colonoscopy Hx laparoscopic cholecystectomy Total knee replacement status H/O toe surgery H/O laminectomy S/P discectomy for herniated nucleus pulposus H/O: hysterectomy H/O knee surgery Family History Father Heart disease Stroke Maternal Grandfather Stroke Paternal Uncle Cancer Social History Household Members: Spouse Housing: House Alcohol intake: current Alcohol intake frequency: holidays/special occasions only Comment: counts correct Patient Tobacco Use Status: Current someday Tobacco user Tobacco use type: Cigarette Cigarettes Per Day: 3 Years Smoked: stopped few months ago Current occupational status: employed Current occupation: [employer] Sexual orientation: Straight/Heterosexual Gender identity: Female Review of Systems Const All systems reviewed & are unremarkable except as noted in HPI and below Reports no additional complaints Eyes Reports no additional complaints ENT Reports no additional complaints Card Reports no additional complaints Resp Reports no additional complaints GI Reports no additional complaints Reports as per HPI Musc Reports no additional complaints Skin/Breast Reports system reviewed and no additional complaints, except as documented Neuro Reports no additional complaints Psych Reports no additional complaints Endo Reports no additional complaints Ba/Lymph Reports no additional complaints Aller/Immun Reports no additional complaints Results AMB Urinalysis, Automated UA Leukoctes 0 Ana/uL Last Edit by TOMMIE Owens on 03/17/24 14:14 UA Nitrite Negative Last Edit by Kellee Caballero [facility] on 03/17/24 14:14 UA Urobilinogen 0.2 mg/dL Last Edit by Kellee Caballero [facility] on 03/17/24 14:14 UA Protein 0 mg/dL Last Edit by Kellee Caballero [facility] on 03/17/24 14:14 UA pH 5.5 Last Edit by Kellee Caballero [facility] on 03/17/24 14:14 UA Blood 0 Carlos/uL Last Edit by Kellee Caballero [facility] on 03/17/24 14:14 UA Specific Strawberry 1.030 Last Edit by Kellee Caballero [facility] on 03/17/24 14:14 UA Ketone Negative Last Edit by Kellee Caballero [facility] on 03/17/24 14:14 UA Bilirubin 0 mg/dL Last Edit by Kellee Caballero [facility] on 03/17/24 14:14 UA Glucose 0 mg/dL Last Edit by Kellee Caballero [facility] on 03/17/24 14:14 Results Reviewed Results Reviewed: Laboratory Last Values Urine pH (Auto) 5.5 03/17/24 14:13 Specific Strawberry (Auto) 1.030 03/17/24 14:13 Urine Protein (Auto) 0 mg/dL 03/17/24 14:13 Glucose (UA)(Auto) 0 mg/dL 03/17/24 14:13 Urine Ketones (Auto) Negative 03/17/24 14:13 Urine Blood (Auto) 0 Carlos/uL 03/17/24 14:13 Urine Nitrite (Auto) Negative 03/17/24 14:13 Urine Bilirubin (Auto) 0 mg/dL 03/17/24 14:13 Urine Urobilinogen (Auto) 0.2 mg/dL 03/17/24 14:13 Leukocyte Esterase (Auto) 0 Ana/uL 03/17/24 14:13 Assessment & Plan Assessment & Plan (1) Urge incontinence of urine: Code(s): N39.41 - Urge incontinence Category: Medical (2) JAMEL (stress urinary incontinence, female): Code(s): N39.3 - Stress incontinence (female) (male) Category: Medical (3) Cystocele: Category: Medical (4) Pelvic floor weakness: Code(s): N81.89 - Other female genital prolapse Category: Medical (5) Lichen sclerosus: Code(s): L90.0 - Lichen sclerosus et atrophicus Category: Medical Plan Lichen sclerosis is managed by [facility]. Urinalysis negative for infection. Trial of Lotrisone cream patient instructed to follow up with [facility] for further evaluation Orders: Orders AMB Urinalysis Automated Today Z13.9 - Encounter for screening, unspecified Medications: New clotrimazole-betamethasone 1-0.05 % 1 appl topical BID 15 grams 0RF Patient Instructions: The patient had an opportunity to ask questions regarding treatment plan. The patient expressed understanding and agreement with the above treatment plan. The patient is aware they should contact our office by phone for worsening of their current condition or the appearance of new symptoms. Compliance is encouraged with any medications and followup testing that is ordered. It is a privilege to be allowed the opportunity to participate in the urologic care of your patient. If you have any questions or concerns regarding treatment for the above conditions please do not hesitate to contact me. The office telephone contact is [phone]. This note is constructed in part using voice recognition software. While every effort has been made to ensure accuracy vamp seamer errors may have been included. Yours sincerely, Nick Nunez MD Coding Level of Care Code Est Pt Level 4 (31059) Diagnoses Urge incontinence of urine N39.41 JAMEL (stress urinary incontinence, female) N39.3 Cystocele Pelvic floor weakness N81.89 Lichen sclerosus L90.0
== END 2024-03-17 14:47 | disposition home or self-care (01) ==
PROVIDERS: PCP Internal Medicine; Visit Provider Urology
DX: N39.41 Urge incontinence (principal); N39.3 Stress incontinence (female) (male); N81.89 Other female genital prolapse; L90.0 Lichen sclerosus et atrophicus; Z13.9 Encounter for screening, unspecified
CPT/HCPCS: 99214

== ENCOUNTER → 2024-03-17 13:45 | Outpatient (BNVA) | payer OTHER, SELFPAY | PROVIDERS: PCP Internal Medicine; Visit Provider Urology | DX: N39.46 Mixed incontinence (principal); N81.89 Other female genital prolapse; L90.0 Lichen sclerosus et atrophicus | CPT/HCPCS: 81003 ==

== ENCOUNTER 2024-03-19 14:28 | Outpatient (AMB) | payer OTHER, SELFPAY ==
[2024-03-19 14:29] VITALS: BMI 26.3
--- NOTE | 2024-03-19 14:29 | A.OFFVIS_ITS ---
Vital Signs 03/19/24 14:29 Height 5 ft 10 in Weight 182 lb 15.739 oz BMI 26.3 Intake Visit Reasons: vaginal check Commercial Assistant Required: No Information Interpreted: non-clinical & clinical Director Of Distance Learning: Director Of Distance Learning Present (June DARNELL) Accompanied by: Self / Same As Patient Allergies gabapentin Allergy (Intermediate, Verified 03/17/24 14:09) swelling of hands and feet Sulfa (Sulfonamide Antibiotics) Allergy (Intermediate, Verified 03/17/24 14:09) diarrhea sulfamethoxazole [From BACTRIM] Allergy (Intermediate, Verified 03/17/24 14:09) N/V trimethoprim [From BACTRIM] Allergy (Intermediate, Verified 03/17/24 14:09) N/V oxycodone [Percocet] Adverse Reaction (Intermediate, Verified 03/17/24 14:09) stomach upset HPI Comments Details: Presenting complaining of vulvovaginal burning over the last week. Vulvar bi opsy in 12/14 showed lichen sclerosis PFSH Medical History Hammer toe Osteoarthritis, generalized Chronic pain syndrome Spinal stenosis of lumbar region Surgical History H/O colonoscopy Hx laparoscopic cholecystectomy Total knee replacement status H/O toe surgery H/O laminectomy S/P discectomy for herniated nucleus pulposus H/O: hysterectomy H/O knee surgery Family History Father Heart disease Stroke Maternal Grandfather Stroke Paternal Uncle Cancer Social History Household Members: Spouse Housing: House Alcohol intake: current Alcohol intake frequency: holidays/special occasions only Comment: counts correct Patient Tobacco Use Status: Current someday Tobacco user Tobacco use type: Cigarette Cigarettes Per Day: 3 Years Smoked: stopped few months ago Current occupational status: employed Current occupation: [employer] Sexual orientation: Straight/Heterosexual Gender identity: Female Review of Systems Const All systems reviewed & are unremarkable except as noted in HPI and below Physical Exam Vital Signs: BMI result Body Mass Index 26.3 General: Yes no CVA tenderness External Female Exam: normal external appearance, normal appearance of the urethra and other (Left posterior fourchette leukoplakia no ulcers no abnormality) Speculum Exam - Vagina: normal appearance of the vagina, normal palpation, no lesions and no masses Speculum Exam - Cervix: normal appearance of the cervix, normal palpation, no lesions, no masses and nontender Bimanual exam- vagina & uterus: normal bimanual exam, normal palpation, uterine size normal, normal palpation, uterine shape normal, No Cervical tenderness present and non-tender Bimanual Exam- Adnexa, other: normal adnexae Back/Spine/Pelvis Back: no CVA tenderness Assessment & Plan Assessment & Plan (1) Lichen sclerosus: Code(s): L90.0 - Lichen sclerosus et atrophicus Category: Medical Plan: Instructions given the patient to apply clobetasol b.i.d. for 2-3 weeks and to call in case symptoms not improve in case of hard areas or ulcers. All questions answered, the patient verbalized understanding Coding Level of Care Code Est Pt Level 3 (98165) Diagnoses Lichen sclerosus L90.0
--- OUTSIDE RECORDS SUMMARY | 2024-03-19 14:29 | XMS_ITS | Patient Health Record ---
[facility] Address [address] [place] [address] Care Team Providers Care Regional Administrative Assistant Name Role Phone Johann Cunningham MD Primary Care Provider Unavaila ble Black, Charlette Unavailable [phone] ALLERGIES Allergen (clinical drug ingredient) Drug/Non Drug Allergy documented on EMR Reaction Allergy Type Onset Date Status sulfamethoxazole / trimethoprim Bactrim nausea Drug Allergy Active acetaminophen / oxycodone Percocet vomiting Drug Allergy Active REASON FOR REFERRAL No Information MEDICATIONS Medication SIG (Take, Route, Frequency, Duration) Notes Start Date End Date Status Kym Allergy Acti ve ASO Ankle/Foot Stablizing AFO As directed Wear Daily for as needed 09/15/2019 Active Aleve Active AFO-fixed . 1 . Wear daily for . Active Work Note . . . patient is disab led from work until further notice Active Walking Boot/Pneumatic As directed Wear Daily for Until further notice 03/03/2019 Active traMADol HCl Not-Darrius ing Work Note . . . pt our of work f or 1 more month s/p foot surgery 02/17/2015 Not-Taking Percocet 5-325 MG 1 tablet as needed Orally every 6 hrs for as needed 12/21/2014 Not-Taking Ibuprofen 800 MG 1 tablet every Orall y every 12 hrs for as needed 12/21/2014 Not-Taking Work Note . . . pt our of work f or 1 more month s/p foot surgery Not-Taking Meloxicam 15 MG 1 capsule Orally Onc e a day PRN Active Flonase 50 MCG/ACT 1 spray in each nost ril Nasally Once a day for 30 day(s) Active SOCIAL HISTORY Tobacco Use: Social History Observation Description Date Details (start date - stop date) Current Smoker NA - NA Sex Assigned At : Social History Observation Description Sex Assigned At Unknown Tobacco Use/Smoking Question Answer Notes Are you a: current smoker How often do you smoke cigarettes? every day How many cigarettes a day do you smoke? 21-30 Alcohol Screen Question Answer Notes Did you have a drink containing alcohol in the p ast year? Yes Points 0 Interpretation Negative Tobacco use other than smoking: Question Answer Notes Are you an other tobacco user? No PROBLEMS Problem Type ICD Code Onset Dates Problem Status W/U Status Risk SNOMED Code Notes Problem Primary osteoarthrit is, right ankle and foot (M19.071) Active confirmed Localized, prim sunil osteoarthritis of the ankle and/or foot (230305804) Problem Primary osteoarthrit is, left ankle and foot (M19.072) Active confirmed Localized, prim sunil osteoarthritis of the ankle and/or foot (261548897) Problem Other hammer toe(s) (acquired), right foot (M20.41) Active confirmed Acquired hammer toe of right foot (2349967388629087) Problem Other hammer toe(s) (acquired), left foot (M20.42) Active confirmed Acquired hammer toe of left foot (2982908529948188) PLAN OF TREATMENT Pending Test Test Name Order Date Tc99 3 phase Bone Scan 03/03/2019 X ray : Foot, left 3V 12/02/2018 X ray : Foot, right 3V 01/21/2015 X ray : Foot, right 3V 01/29/2015 X ray : Foot, right 3V 12/21/2014 X ray : Foot, right 3V 09/03/2014 X ray : Foot, right 3V 12/02/2018 X ray : Foot, right 3V 03/03/2019 15113, J0702- INJECT or DRAIN, JOINT/BUR SA 07/16/2019 Next Appt Details Provider Name:Charlette Desir , 05/12/2024 02:00:00 PM, [address] [place] [address], [phone], Insurance Providers Payer Name Payer Address Payer Phone Subscriber Number Group Number Insured Name Patient Relationship to Insured Coverage Start Date Coverage End Date Blue Benefits [address] [address] [place] [address] [id number] Sweta Arauz Self - patient is the insured MEDICAL (GENERAL) HISTORY Medical History History ICD Code Arthritis Back,Hip,and Knee pain Headaches Chicken pox Surgical History Surgery Date(Month/Year) knee surgery hysterectomy 2012 HT Right 2&3 01/07/2015
== END 2024-03-19 14:44 | disposition home or self-care (01) ==
LOC: HO.HWS 14:28
PROVIDERS: PCP Internal Medicine; Visit Provider Obstetrics & Gynecology
DX: L90.0 Lichen sclerosus et atrophicus (principal)
CPT/HCPCS: 99213

== ENCOUNTER → 2024-03-19 14:28 | Outpatient (BNVA) | payer OTHER, SELFPAY | PROVIDERS: PCP Internal Medicine; Visit Provider Obstetrics & Gynecology ==

== ENCOUNTER 2024-06-30 15:05 | Outpatient (AMB) | payer OTHER, SELFPAY ==
--- NOTE | 2024-06-30 12:34 | A.OFFVIS_ITS ---
Intake Visit Reasons: 6m follow up Intake Note: Patient is present for PVR follow up Urology Med: Myrbetriq, Estradiol Antibiotic Allergy: Sulfa, Trimethroprim Blood Thinner: None PVR: 0ml Accompanied by: Self / Same As Patient Allergies gabapentin Allergy (Intermediate, Verified 06/30/24 15:13) swelling of hands and feet Sulfa (Sulfonamide Antibiotics) Allergy (Intermediate, Verified 06/30/24 15:13) diarrhea sulfamethoxazole [From BACTRIM] Allergy (Intermediate, Verified 06/30/24 15:13) N/V trimethoprim [From BACTRIM] Allergy (Intermediate, Verified 06/30/24 15:13) N/V oxycodone [Percocet] Adverse Reaction (Intermediate, Verified 06/30/24 15:13) stomach upset Medication List - Last Reconciled 06/30/24 by Nick Nunez MD cetirizine (Zyrtec) 10 mg PO DAILY cholecalciferol (vitamin D3) 125 mcg PO DAILY clobetasol 0.05% 1 appl topical DAILY 1 week clotrimazole-betamethasone 1-0.05 % 1 appl topical BID cyanocobalamin (vitamin B-12) 5,000 mcg PO DAILY estradiol 0.01%(0.1mg/gram) apply thin coat daily 30 days fluticasone propionate 50 mcg/actuation 1 spray intranasal DAILY ketorolac 10 mg PO Q6H PRN mirabegron ER (Myrbetriq) 50 mg PO DAILY omega 5-vaw-fiq-fish oil 300-1,000 mg (Fish Oil) 1 cap PO DAILY solifenacin (Vesicare) 5 mg PO BEDTIME HPI Comments Details: 06/30/24--Sweta biggs states she has retired, followed for pelvic floor weakness and cystocele with overactive bladder symptoms. She is on Myrbetriq 50 mg daily. Vaginal cystocele is managed with pessary. She was seen last in the office on 03/17/2024. She states the Myrbetriq works during the daytime but she is getting up frequently at nighttime, and will sometimes leak before getting to the bathroom. Denies dysuria. Will empirically add VESIcare 5 mg at bedtime. She is able to remove pessary and clean it at home. I have discussed if the pessary starts to get worn that we will order another one. Will send a surveillance urine culture. Review of chart 03/17/2024--Sweta is followed for pelvic floor weakness and cystocele with overactive bladder symptoms. She is on Myrbetriq 50 mg daily. Vaginal cystocele is managed with pessary. She states that she has had a flare in her lichen sclerosis symptoms. She uses clobetasol that is prescribed by Dr. Raya but it is not helping. She states that when she urinates it stoddard on the skin. Urinalysis is negative. I want her to follow-up with BASKET BOTTOM MACHINE OPERATOR to be further evaluated. I will empirically try a steroid cream with an antifungal component to see if this may be helpful. 12/31/23-- Sweta is a 63-year-old female who presents to the office for 6-months follow-up for cystocele with pessary maintenance, OAB and pelvic floor weakness. She states that she feels that for the last several weeks pessary is laying lower especially when standing. On exam Pessary refitting - pessary removed and new pessary size 4 ring/wo support. Will continue Myrbetriq 50 mg qd. 07/06/23--Sweta is a 62-year-old female who presents to the office for 6-months follow-up for cystocele with pessary maintenance, OAB and pelvic floor weakness. She states that she had knee surgery 6 weeks ago, she states that the pessary kept dropping low so she removed it and has recently put it back in about 3-4 days. She has been doing kegels. Evaluation today-- UA - no signs of infection. Plan: Cont Myrbetriq 50 mg QD 11/30/22-- The patient was last seen on 05/25/22. She states she has been managing the pessary, and is able to remove and clean it. States having frequent voiding episodes and irritated skin due to wiping. The patient mentions occasional urinary episodes after every hour or two. Mentions drinking adequate amount of water. At once occasion the patient had episodes of nocturia every hour or 20 minutes. Has nocturia episodes which she links with increased fluid consumption during the day. The patient is using estradiol cream. [facility] Medical History Hammer toe Osteoarthritis, generalized Chronic pain syndrome Spinal stenosis of lumbar region Surgical History H/O colonoscopy Hx laparoscopic cholecystectomy Total knee replacement status H/O toe surgery H/O laminectomy S/P discectomy for herniated nucleus pulposus H/O: hysterectomy H/O knee surgery Family History Father Heart disease Stroke Maternal Grandfather Stroke Paternal Uncle Cancer Social History Household Members: Spouse Housing: House Alcohol intake: current Alcohol intake frequency: holidays/special occasions only Comment: counts correct Patient Tobacco Use Status: Current someday Tobacco user Tobacco use type: Cigarette Cigarettes Per Day: 3 Years Smoked: stopped few months ago Current occupational status: employed Current occupation: [employer] Sexual orientation: Straight/Heterosexual Gender identity: Female Review of Systems Const All systems reviewed & are unremarkable except as noted in HPI and below Reports no additional complaints Eyes Reports no additional complaints ENT Reports no additional complaints Card Reports no additional complaints Resp Reports no additional complaints GI Reports no additional complaints Reports as per HPI Musc Reports no additional complaints Skin/Breast Reports system reviewed and no additional complaints, except as documented Neuro Reports no additional complaints Psych Reports no additional complaints Endo Reports no additional complaints Ba/Lymph Reports no additional complaints Aller/Immun Reports no additional complaints Office Procedures Post Void Residual Post Residual Void Post Void Residual (PVR): 0 45363-Ocvp Void Residual by ultrasound Results AMB Urinalysis, Automated UA Leukoctes 70 Ana/uL Last Edit by CARIE Lutz on 06/30/24 15:24 UA Nitrite Negative Last Edit by CARIE Lutz on 06/30/24 15:24 UA Urobilinogen 0.2 mg/dL Last Edit by CARIE Lutz on 06/30/24 15:2 4 UA Protein 0 mg/dL Last Edit by CARIE Lutz on 06/30/24 15:24 UA pH 6.0 Last Edit by CARIE Lutz on 06/30/24 15:24 UA Blood 10 Carlos/uL Last Edit by CARIE Lutz on 06/30/24 15:24 UA Specific [place] 1.015 Last Edit by Jennifer Castro, RMA on 06/30/24 15: 24 UA Ketone Negative Last Edit by bonifacio Castro, RMA on 06/30/24 15:24 UA Bilirubin 0 mg/dL Last Edit by Castro, RMA on 06/30/24 15:24 UA Glucose 0 mg/dL Last Edit by Jennifer Castro, A on 06/30/24 15:24 Assessment & Plan Assessment & Plan (1) Urge incontinence of urine: Code(s): N39.41 - Urge incontinence Category: Medical (2) JAMEL (stress urinary incontinence, female): Code(s): N39.3 - Stress incontinence (female) (male) Category: Medical (3) Cystocele: Category: Medical (4) Pelvic floor weakness: Code(s): N81.89 - Other female genital prolapse Category: Medical (5) Nocturia: Code(s): R35.1 - Nocturia Category: Medical Plan She states the Myrbetriq works during the daytime but she is getting up frequently at nighttime, and will sometimes leak before getting to the bathroom. Denies dysuria. Will empirically add VESIcare 5 mg at bedtime. She is able to remove pessary and clean it at home. I have discussed if the pessary starts to get worn that we will order another one. Will send a surveillance urine culture. Orders: Orders 2 AMB Urinalysis Automated Today Z13.9 - Encounter for screening, unspecified AMB Post Void Residual by ultrasound Today N39.41 - Urge incontinence Medications: New solifenacin (Vesicare) 5 mg PO BEDTIME 90 tabs 3RF Refilled mirabegron ER (Myrbetriq) 50 mg PO DAILY 90 tabs 2RF Patient Instructions: The patient had an opportunity to ask questions regarding treatment plan. The patient expressed understanding and agreement with the above treatment plan. The patient is aware they should contact our office by phone for worsening of their current condition or the appearance of new symptoms. Compliance is encouraged with any medications and followup testing that is ordered. It is a privilege to be allowed the opportunity to participate in the urologic care of your patient. If you have any questions or concerns regarding treatment for the above conditions please do not hesitate to contact me. The office telephone contact is [phone]. This note is constructed in part using voice recognition software. While every effort has been made to ensure accuracy tack puller machine errors may have been included. Yours sincerely, Nick Nunez MD Coding Level of Care Code Est Pt Level 4 (13460) Diagnoses Urge incontinence of urine N39.41 JAMEL (stress urinary incontinence, female) N39.3 Cystocele Pelvic floor weakness N81.89 Nocturia R35.1 CPT Codes Post Residual Void - PVR CPT Code: 21297-Byta Void Residual by ultrasound ([id number])
== END 2024-06-30 15:31 | disposition home or self-care (01) ==
PROVIDERS: PCP Internal Medicine; Visit Provider Urology
DX: N39.41 Urge incontinence (principal); N39.3 Stress incontinence (female) (male); N81.89 Other female genital prolapse; R35.1 Nocturia; Z13.9 Encounter for screening, unspecified
CPT/HCPCS: 99214

== ENCOUNTER 2024-06-30 15:05 | Outpatient (REF) | payer OTHER, SELFPAY | END 2024-06-30 15:06 | disposition home or self-care (01) | LOC: HO.LAB 15:05 | PROVIDERS: PCP Internal Medicine; Visit Provider Urology | DX: N39.41 Urge incontinence (principal); N39.3 Stress incontinence (female) (male); N39.0 Urinary tract infection, site not specified | CPT/HCPCS: 51798; 81003; 87086 ==

== ENCOUNTER 2024-11-13 09:38 | Outpatient (AMB) | payer OTHER, SELFPAY ==
[2024-11-13 09:34] VITALS: BP 128/76; PULSE 69; TEMP 36.3; O2SAT 99; BMI 28.0
--- NOTE | 2024-11-13 09:34 | MHC.PC.OV ---
Vital Signs 11/13/24 09:34 Height 5 ft 10 in Weight 195 lb BMI 28.0 BP 128/76 Blood Pressure Location Lt brachial Position Sitting Pulse 69 Pulse Source Pulse Oximeter Temp 97.3 F Temp Source Axillary Pulse Oximetry (%) 99 Oxygen Delivery Method Room Air Intake Visit Reasons: Routine Insole And Outsole Preparer Required: No Accompanied by: Self / Same As Patient Allergies gabapentin Allergy (Intermediate, Verified 11/13/24 09:34) swelling of hands and feet Sulfa (Sulfonamide Antibiotics) Allergy (Intermediate, Verified 11/13/24 09:34) diarrhea sulfamethoxazole [From BACTRIM] Allergy (Intermediate, Verified 11/13/24 09:34) N/V trimethoprim [From BACTRIM] Allergy (Intermediate, Verified 11/13/24 09:34) N/V oxycodone [Percocet] Adverse Reaction (Intermediate, Verified 11/13/24 09:34) stomach upset Medication List - Last Reconciled 11/13/24 by Betty Arredondo MD cetirizine (Zyrtec) 10 mg PO DAILY cholecalciferol (vitamin D3) 125 mcg PO DAILY clobetasol 0.05% 1 appl topical DAILY 1 week clotrimazole-betamethasone 1-0.05 % 1 appl topical BID cyanocobalamin (vitamin B-12) 5,000 mcg PO DAILY estradiol 0.01%(0.1mg/gram) apply thin coat daily 30 days fluticasone propionate 50 mcg/actuation 1 spray intranasal DAILY ketorolac 10 mg PO Q6H PRN mirabegron ER (Myrbetriq) 50 mg PO DAILY omega 3-opy-jup-fish oil 300-1,000 mg (Fish Oil) 1 cap PO DAILY solifenacin (Vesicare) 5 mg PO BEDTIME Tobacco use date assessed: 11/13/24 Dental Screening Dental Screen Date: 11/13/24 Did you have a dental visit in the last 12 months?: Yes Did you have a dental problem in the last 6 months where you did not have access to dental care?: No HPI HPI Comments History of Present Illness Details This is a 64-year-old female with past medical history of OA, pelvic floor weakness, cystocele, OAB presenting for follow up MSK: Has seen orthopedics. History of knee replacement, history of lumbar laminectomy. Follows with urology. She is on Myrbetriq 50 mg daily. 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 Needs new distance learning technician for annual exams Follows with neurology Dr Aguilar for lower extremity neuropathy. Mammo 12/2023 Colonoscopy 01/2024-5 year Follows with mat worker Dr Elver FARRELL CONSTITUTIONAL: Denies weight loss, fever and chills. HEENT: Denies changes in vision and hearing. RESPIRATORY: Denies SOB and cough. CV: Denies palpitations and CP GI: Denies abdominal pain, nausea, vomiting and diarrhea. : Denies dysuria and urinary frequency. MSK: Denies new myalgia and joint pain. SKIN: Denies rash and pruritus. NEUROLOGICAL: Denies headache PSYCHIATRIC: Denies recent changes in mood. PHYSICAL EXAM: GENERAL: Alert and oriented x 3. NAD EYES: EOMI. Anicteric. HENT: Moist mucous membranes. No scleral icterus. No cervical lymphadenopathy. LUNGS: Clear to auscultation bilaterally. CARDIOVASCULAR: Regular rate and rhythm. No murmur. No JVD. ABDOMEN: Soft, non-tender +bs EXTREMITIES: No edema. Non-tender. SKIN: No rashes or lesions. Warm. NEUROLOGIC: No focal neurological deficits. CN II-XII grossly intact PSYCHIATRIC: Cooperative. Appropriate mood and affect [facility] Medical History Hammer toe Osteoarthritis, generalized Chronic pain syndrome Spinal stenosis of lumbar region Surgical History H/O colonoscopy (~02/06/24) Hx laparoscopic cholecystectomy Total knee replacement status H/O toe surgery H/O laminectomy S/P discectomy for herniated nucleus pulposus H/O: hysterectomy H/O knee surgery Family History Father Heart disease Stroke Maternal Grandfather Stroke Paternal Uncle Cancer Father No problems noted. Social History Household Members: Spouse Housing: House Alcohol intake: current Alcohol intake frequency: holidays/special occasions only Comment: counts correct Patient Tobacco Use Status: Current someday Tobacco user Tobacco use type: Cigarette Cigarettes Per Day: 3 Years Smoked: stopped few months ago e-Cigarette/Vaping Use: Currently Using service: No Current occupational status: employed and retired Current occupation: [employer] Current occupational exposures/hazards: No Sexual orientation: Straight/Heterosexual Gender identity: Female Cognitive needs: No Hearing needs: No Vision needs: Yes (rx glasses) Questionnaire PHQ-9 Over the last 2 weeks, how often have you been bothered by any of the following problems? 1. Little interest or pleasure in doing things: not at all 2. Feeling down, depressed, or hopeless: not at all 3. Trouble falling or staying asleep, or sleeping too much: not at all 4. Feeling tired or having little energy: not at all 5. Poor appetite or overeating: not at all 6. Feeling bad about yourself - or that you are a failure or have let yourself or your family down: not at all 7. Trouble concentrating on things, such as reading the newspaper or watching television: not at all 8. Moving or speaking so slowly that other people could have noticed. Or the opposite - being so fidgety or restless that you have been moving around a lot more than usual: not at all 9. Thoughts that you would be better off or of hurting yourself in some way: not at all Total score: 0 Depression Screening Interpretation: Negative Depression Screening Done: Yes 59709 - PHQ-9 Billing: Yes Source: Developed by Drs. Charles Kim, Katie Wolfe, Vinod Sweeney and colleagues, with an educational kathi from [employer]. Thrive Questionnaire Date Thrive assessed: 11/13/24 I am a: Patient Within the past 12 months, did the food you bought not last and you didn't have the money to get more?: Never true Within the past 12 months, did you worry whether your food would run out before you got money to buy more?: Never true Do you have trouble paying for medicines?: No Do you have trouble getting transportation to medical appointments?: No Do you have trouble paying your heating and electricity bill?: No Do you have trouble taking care of your child, family member or friend?: No Do you have trouble with day-to-day activities such as bathing, preparing meals, shopping, managing finances, etc.?: No Are you currently unemployed and looking for a job?: No Are you interested in more education?: No THRIVE Score: 0 AUDIT C Alcohol Use Questionnaire (AUDIT-C) 1. How often do you have a drink containing alcohol?: Monthly or less 2. How many drinks containing alcohol do you have on a typical day when you are drinking?: 1 or 2 3. How often do you have six or more drinks on one occasion?: Less than monthly Total Score: 2 DAYA-7 AMB Questionnaire DAYA-7 Date DAYA - 7 assessed: 11/13/24 Feeling nervous, anxious, or on edge: 0 = Not at all Not being able to stop or control worryin = Not at all Worrying too much about different things: 0 = Not at all Trouble relaxin = Not at all Being so restless that it is hard to sit still: 0 = Not at all Becoming easily annoyed or irritable: 0 = Not at all Feeling afraid as if something awful might happen: 0 = Not at all Total DAYA-7 score (0-4 normal; 5-9 mild; 10-14 moderate; 15-21 severe): 0 Source: Developed by Drs. Charles Kim, Katie Wolfe, Vinod Sweeney and colleagues, with an educational kathi from [employer]. Physical exam (Primary Care) Vital Signs: Last Vital Signs Temp 97.3 F 11/13/24 09:34 Pulse 69 11/13/24 09:34 BP 128/76 11/13/24 09:34 Pulse Ox 99 11/13/24 09:34 Oxygen Delivery Method Room Air 11/13/24 09:34 BMI result Body Mass Index 28.0 Tobacco/Smoking Status: Tobacco use Status Tobacco use date assessed 11/13/24 11/13/24 09:36 Patient Tobacco Use Status Current someday Tobacco 11/13/24 09:36 Tobacco use type Cigarette 11/13/24 09:36 e-Cigarette/Vaping Use Currently Using 11/13/24 09:36 PHQ-9: PHQ-9 Score PHQ-9: Total score 0 11/13/24 09:52 Depression Screening Interpretation: Negative Thrive Assessment: Date of Thrive Assessment Date Thrive assessed 11/13/24 11/13/24 09:36 Coding Level of Care Code New Pt Level 4 (31474) Complex EM visit Add On G2211 Diagnoses Genitourinary syndrome of menopause N95.8 Neuropathy G62.9 Osteopenia, unspecified location M85.80 Osteopenia location: unspecified Spinal stenosis of lumbar region, unspecified whether neurogenic claudication present M48.061 Neurogenic claudication status: unspecified Additional Codes PHQ-9 - 65082 - PHQ-9 Billing: Yes ([id number]) Assessment & Plan Assessment & Plan (1) Genitourinary syndrome of menopause: Code(s): N95.8 - Other specified menopausal and perimenopausal disorders Category: Medical (2) Neuropathy: Code(s): G62.9 - Polyneuropathy, unspecified Category: Medical (3) Osteopenia: Code(s): M85.80 - Other specified disorders of bone density and structure, unspecified site Category: Medical Qualifiers: Osteopenia location: unspecified Qualified Code(s): M85.80 - Other specified disorders of bone density and structure, unspecified site (4) Spinal stenosis of lumbar region: Code(s): M48.061 - Spinal stenosis, lumbar region without neurogenic claudication Category: Medical Qualifiers: Neurogenic claudication status: unspecified Qualified Code(s): M48.061 - Spinal stenosis, lumbar region without neurogenic claudication Plan 64 year old female presenting to [facility] care Past medical, surgical, social reviewed Chronic medical conditions stable Referral placed to dermatology and neurology Orders: Orders Complete Blood Count Auto Diff Today G89.4 - Chronic pain syndrome, M85.80 - Other specified disorders of bone density and structure, unspecified site, N39.3 - Stress incontinence (female) (male), Z13.0 - Encounter for screening for diseases of the blood and blood-forming organs and certain disorders involving the immune mechanism, Z13.228 - Encounter for screening for other metabolic disorders Comprehensive Met. Panel Today G89.4 - Chronic pain syndrome, M85.80 - Other specified disorders of bone density and structure, unspecified site, N39.3 - Stress incontinence (female) (male), Z13.0 - Encounter for screening for diseases of the blood and blood-forming organs and certain disorders involving the immune mechanism, Z13.228 - Encounter for screening for other metabolic disorders TSH reflex Free T4 Today G89.4 - Chronic pain syndrome, M85.80 - Other specified disorders of bone density and structure, unspecified site, N39.3 - Stress incontinence (female) (male), Z13.0 - Encounter for screening for diseases of the blood and blood-forming organs and certain disorders involving the immune mechanism, Z13.228 - Encounter for screening for other metabolic disorders Vitamin D 25-OH (D2 and D3) Today M85.80 - Other specified disorders of bone density and structure, unspecified site MM screening mammo BI Today Z12.31 - Encounter for screening mammogram for malignant neoplasm of breast Lipid Panel Today G89.4 - Chronic pain syndrome, M85.80 - Other specified disorders of bone density and structure, unspecified site, N39.3 - Stress incontinence (female) (male), Z13.0 - Encounter for screening for diseases of the blood and blood-forming organs and certain disorders involving the immune mechanism, Z13.228 - Encounter for screening for other metabolic disorders Referrals Neurology Referral G62.9 - Polyneuropathy, unspecified Dermatology Referral Z12.83 - Encounter for screening for malignant neoplasm of skin
--- OUTSIDE RECORDS SUMMARY | 2024-11-13 09:55 | XMS_ITS ---
Author Organization [facility] Address [address] [place] [address] Care Team Providers Care Ginner Helper Name Role Phone Marisa NEVAREZ, Johann Primary Care Provider Charlette Peña [phone] Tamez Encounters Encounter Location Date Provider Diagnosis [address] [address] 09/25/2024 Charlette Desir Plan Of Treatment No Information Progress Notes * Gabriela DREW ADOB:1959 (64 yo F)Acc No.[id number]:09/25/2024 Progress Note Patient:Gabriela ROGER Provider:?Charlette Desir DPM :1960???Age:64 Y???Sex:Female D ate:09/25/2024 Address:[address] [place], [place] [id number] Pcp:Johann Cunningham MD Subjective: * Chief Complaints: * ???1. Dr Tamez. * Medical History:? Objective: * Vitals:? Assessment: Plan: * Treatment: * Images: * The named appointment provid er may or may not be the originator of this progress note, and it is not deemed complete until electronically signed by the appointment provider. Sign off status: Pending * Provider:?Charlette Desir DPM Date:?2024 Generated for Printi ng/Fayolandag/eTransmitting on:?11/13/2024 09:55 AM EDT
--- OUTSIDE RECORDS SUMMARY | 2024-11-13 09:55 | XMS_ITS | Patient Health Record ---
Author Organization [facility] Address [address] [place] [address] Care Team Providers Care Coagulant Dipper Name Role Phone Johann Cunningham MD Primary Care Provider Unavaila ble Charlette Desir Unavailable [phone] Allergies Allergen (clinical drug ingredient) Drug/Non Drug Allergy documented on EMR Reaction Allergy Type Onset Date Status sulfamethoxazole / trimethoprim Bactrim nausea Drug Allergy Active acetaminophen / oxycodone Percocet vomiting Drug Allergy Active Results Component Value Reference Range Notes X ray : Foot, right 3V Reviewed date:09/18/2024 05:08:36 PM Interpretation:See Examination above Performing Lab: Notes/Report: See Examination above X ray : Foot, right 3V Reviewed date:05/12/2024 05:10:22 PM Interpretation:See Examination above Performing Lab: Notes/Report: See Examination above X ray : Foot, left 3V Reviewed date:05/12/2024 05:10:12 PM Interpretation:See Examination above Performing Lab: Notes/Report: See Examination above Reason For Referral Diagnosis 1 Other hammer toe(s) (acquired), right foot (M20.41) Diagnosis 2 Other hammer toe(s) (acquired), left foot (M20.42) Diagnosis 3 Osteoarthritis of mi dtarsal joint of left foot (M19.072) Diagnosis 4 Osteoarthritis of mi dtarsal joint of right foot (M19.071) Diagnosis 5 Neuropathy (G62.9) Referring Provider First Name Johann Referring Provider Last Name Marisa Referred Organization [facility] Referred Provider Charlette Desir Referred Address [address],[place], [place],[address],[place] Referred Provider Specialty Podiatry Referral Priority Routine Medications Medication SIG (Take, Route, Frequency, Duration) Notes Start Date End Date Status ASO Ankle/Foot Stablizing AFO As directed Wear Daily for as needed 09/15/2019 Active Work Note . . . pt our of work f or 1 more month s/p foot surgery Active Meribin Active Aleve Active Work Note . . . pt our of work f or 1 more month s/p foot surgery 02/17/2015 Unknown Kym Allergy Acti ve Flonase 50 MCG/ACT 1 spray in each nost ril Nasally Once a day for 30 day(s) Active Meloxicam 15 MG 1 capsule Orally Onc e a day PRN Not-Taking Solifenacin Succinate Active Walking Boot/Pneumatic As directed Wear Daily for Until further notice 03/03/2019 Not-Taking Omeprazole Active AFO-fixed . 1 . Wear daily for . Not-Taking Gabapentin 300 MG 1 capsule Orally thr ee times day for 30 days Active traMADol HCl Not-Darrius ing Work Note . . . patient is disab led from work until further notice Active Percocet 5-325 MG 1 tablet as needed Orally every 6 hrs for as needed 12/21/2014 Not-Taking Ibuprofen 800 MG 1 tablet every Orall y every 12 hrs for as needed 12/21/2014 Active Social History Tobacco Use: Social History Observation Description Date Details (start date - stop date) Current Smoker NA - NA Tobacco Use/Smoking Question Answer Notes Are you a: current smoker How often do you smoke cigarettes? every day How many cigarettes a day do you smoke? - Alcohol Screen Question Answer Notes Did you have a drink containing alcohol in the p ast year? Yes Points 0 Interpretation Negative Tobacco use other than smoking: Question Answer Notes Are you an other tobacco user? No Problems Problem Type SNOMED Code ICD Code Onset Dates Problem Status W/U Status Risk Notes Problem Acquired hammer toe of right foot (6953950694977447 ) Other hammer toe(s) (acquired), right foot (M20.41) Active confirmed Problem Acquired hammer toe of left foot (8904875684643337 ) Other hammer toe(s) (acquired), left foot (M20.42) Active confirmed Problem Neuropathy (067049310) Neuropathy (G62.9) Active confirmed Problem Osteoarthritis o f right ankle and foot (M19.071) Active confirmed Problem Osteoarthritis of midtarsal joint of left foot (6289178820122694 ) Osteoarthritis of midtarsal joint of left foot (M19.072) Active confirmed Vital Signs Blood pressure diastolic 80 mm Hg 09/18/2024 Height 4oi69tu in 09/18/2024 Blood pressure systolic 135 mm Hg 09/18/2024 Weight 195 lbs 09/18/2024 BMI 27.98 kg/m2 09/18/2024 Encounters Encounter Location Date Provider Diagnosis [address] [address] 05/12/2024 Charlette Black Pain in left foot M79.672 ; Neuritis M79.2 ; Pain in left ankle and joints of left foot M25.572 ; Osteoarthritis of midtarsal joint of left foot M19.072 ; Pain in right foot M79.671 ; Pain in right ankle and joints of right foot M25.571 ; Osteoarthritis of midtarsal joint of right foot M19.071 and Neuropathy G62.[address] [address] 06/05/2024 Charlette Black Pain in left foot M79.672 ; Neuritis M79.2 ; Pain in left ankle and joints of left foot M25.572 ; Pain in right foot M79.671 ; Pain in right ankle and joints of right foot M25.571 and Neuropathy G62.[address] [address] 09/18/2024 Charlette Black Pain in left foot M79.672 ; Neuritis M79.2 ; Pain in left ankle and joints of left foot M25.572 ; Pain in right foot M79.671 ; Pain in right ankle and joints of right foot M25.571 ; Neuropathy G62.9 ; Bursitis of right foot M77.51 ; Hypertrophy of bone of foot M89.379 and Osteoarthritis of right ankle and foot M19.[address] [address] 05/12/2024 Charlette Black [facility] [place] [address] [place] [address] 09/18/2024 Charlette Desir [facility] Encounter Date Diagnosis (ICD Code) Assessment Notes Treatment Notes Treatment Clinical Notes Section Notes 05/12/2024 Pain in left foot (ICD-10 - M79.672) 05/12/2024 Neuritis (ICD-10 - M79.2) 06/05/2024 Pain in left foot (ICD-10 - M79.672) 06/05/2024 Neuritis (ICD-10 - M79.2) 09/18/2024 Pain in left foot (ICD-10 - M79.672) 09/18/2024 Neuritis (ICD-10 - M79.2) 09/18/2024 Pain in left ankle and joints of left foot (ICD-10 - M25.572) 06/05/2024 Pain in left ankle and joints of left foot (ICD-10 - M25.572) 05/12/2024 Pain in left ankle and joints of left foot (ICD-10 - M25.572) 06/05/2024 Pain in right foot (ICD-10 - M79.671) 05/12/2024 Osteoarthritis of midtarsal joint of left foot (ICD-10 - M19.072) 09/18/2024 Pain in right foot (ICD-10 - M79.671) 06/05/2024 Pain in right ankle and joints of right foot (ICD-10 - M25.571) 09/18/2024 Pain in right ankle and joints of right foot (ICD-10 - M25.571) 05/12/2024 Pain in right foot (ICD-10 - M79.671) 05/12/2024 Pain in right ankle and joints of right foot (ICD-10 - M25.571) 06/05/2024 Neuropathy (ICD-10 - G62.9) 09/18/2024 Neuropathy (ICD-10 - G62.9) 09/18/2024 Bursitis of right foot (ICD-10 - M77.51) 05/12/2024 Osteoarthritis of midtarsal joint of right foot (ICD-10 - M19.071) 05/12/2024 Neuropathy (ICD-10 - G62.9) 09/18/2024 Hypertrophy of bone of foot (ICD-10 - M89.379) 09/18/2024 Osteoarthritis of right ankle and foot (ICD-10 - M19.071) Plan Of Treatment Pending Test Test Name Order Date Tc99 3 phase Bone Scan 03/03/2019 X ray : Foot, left 3V 12/02/2018 X ray : Foot, right 3V 03/03/2019 X ray : Foot, right 3V 09/03/2014 X ray : Foot, right 3V 12/21/2014 X ray : Foot, right 3V 01/21/2015 X ray : Foot, right 3V 01/29/2015 X ray : Foot, right 3V 12/02/2018 [id number], [id number] INJECT or DRAIN, JOINT/BUR SA 07/16/2019 Insurance Providers Payer Name Payer Address Payer Phone Subscriber Number Group Number Insured Name Patient Relationship to Insured Coverage Start Date Coverage End Date [facility] [address] [place] [address] [id number] Richard Myers Spouse - patient is the spouse of the insured Medical (General) History Medical History History ICD Code Arthritis Back,Hip,and Knee pain Headaches Chicken pox covid-19 Gall bladder Hiatal hernia High Blood Pressure Neuropathy Reflux ( GERD) sinusitis Joint implants/screws Surgical History Surgery Date(Month/Year) knee replacment 05/23/23 hysterectomy 02/2012 HT Right 2&3 01/07/2015 back surgery 07/2020 Gall bladder removal 12/21/23
--- OUTSIDE RECORDS SUMMARY | 2024-11-13 09:55 | XMS_ITS ---
[facility] Organization [facility] Address [address] [place] [address] Care Team Providers Care Natural Sciences Professor Name Role Phone Johann Cunningham MD Primary Care Provider Unavaila ble Black, Charlette Unavailable [phone] Allergies Allergen (clinical drug ingredient) Drug/Non Drug Allergy documented on EMR Reaction Allergy Type Onset Date Status sulfamethoxazole / trimethoprim Bactrim nausea Drug Allergy Active acetaminophen / oxycodone Percocet vomiting Drug Allergy Active Results Component Value Reference Range Notes X ray : Foot, right 3V Reviewed date:09/18/2024 05:08:36 PM Interpretation:See Examination above Performing Lab: Notes/Report: See Examination above REASON FOR VISIT Foot pain Medications Medication SIG (Take, Route, Frequency, Duration) Notes Start Date End Date Status Work Note . . . pt our of work f or 1 more month s/p foot surgery 02/17/2015 Unknown Walking Boot/Pneumatic As directed Wear Daily for Until further notice 03/03/2019 Not-Taking AFO-fixed . 1 . Wear daily for . Not-Taking traMADol HCl Not-Darrius ing Percocet 5-325 MG 1 tablet as needed Orally every 6 hrs for as needed 12/21/2014 Not-Taking ASO Ankle/Foot Stablizing AFO As directed Wear Daily for as needed 09/15/2019 Active Work Note . . . pt our of work f or 1 more month s/p foot surgery Active Flonase 50 MCG/ACT 1 spray in each nost ril Nasally Once a day for 30 day(s) Active Meloxicam 15 MG 1 capsule Orally Onc e a day PRN Not-Taking Ibuprofen 800 MG 1 tablet every Orall y every 12 hrs for as needed 12/21/2014 Active Aleve Active Kym Allergy Acti ve Omeprazole Active Gabapentin 300 MG 1 capsule Orally thr ee times day for 30 days Active Work Note . . . patient is disab led from work until further notice Active Meribin Active Solifenacin Succinate Active Social History Tobacco Use: Social History Observation Description Date Details (start date - stop date) Current Smoker NA - NA Tobacco Use/Smoking Question Answer Notes Are you a: current smoker How often do you smoke cigarettes? every day How many cigarettes a day do you smoke? - Tobacco use other than smoking: Question Answer Notes Are you an other tobacco user? No Problems Problem Type SNOMED Code ICD Code Onset Dates Problem Status W/U Status Risk Notes Problem Osteoarthritis o f right ankle and foot (M19.071) Active confirmed Vital Signs Blood pressure systolic 135 mm Hg 09/19/19 25 Blood pressure diastolic 80 mm Hg 025 Height 3gb52pg in 09/18/2024 Weight 195 lbs 09/18/2024 BMI 27.98 kg/m2 09/18/2024 Encounters Encounter Location Date Provider Diagnosis [facility] [address] [place] [address] 09/18/2024 Charlette Black Pain in left foot M79.672 ; Neuritis M79.2 ; Pain in left ankle and joints of left foot M25.572 ; Pain in right foot M79.671 ; Pain in right ankle and joints of right foot M25.571 ; Neuropathy G62.9 ; Bursitis of right foot M77.51 ; Hypertrophy of bone of foot M89.379 and Osteoarthritis of right ankle and foot M19.071 Assessments Encounter Date Diagnosis (ICD Code) Assessment Notes Treatment Notes Treatment Clinical Notes Section Notes 09/18/2024 Pain in left foot (ICD-10 - M79.672) 09/18/2024 Neuritis (ICD-10 - M79.2) 09/18/2024 Pain in left ankle and joints of left foot (ICD-10 - M25.572) 09/18/2024 Pain in right foot (ICD-10 - M79.671) 09/18/2024 Pain in right ankle and joints of right foot (ICD-10 - M25.571) 09/18/2024 Neuropathy (ICD-10 - G62.9) 09/18/2024 Bursitis of right foot (ICD-10 - M77.51) 09/18/2024 Hypertrophy of bone of foot (ICD-10 - M89.379) 09/18/2024 Osteoarthritis of right ankle and foot (ICD-10 - M19.071) Plan Of Treatment Next Appt Details Follow Up: 2 Months, Reason: Progress Notes * Gabriela DREW ADOB:1959 (64 yo F)Acc No.[id number]:09/18/2024 Progress Note Patient:?RAJENDRAGabriela Chris Provider:?Charlette Desir DPM :1960???Age:64 Y???Sex:Female D ate:09/18/2024 Address:[address] [place] [address] Pcp:Johann Cunningham MD Subjective: * Chief Complaints: * ???Foot pain * HPI: ???Foot Pain:?neurologist changed pts medication to gabapentin 300mg - 2 am, 2pm. ?Nature:?Aching, stiffness, swelling, throbbing,?.?Location:?Midfoot, , RIGHT.?Duration:?, several years.?Onset:?after multiple days of yard work.?Course:?, worse.?Aggravated:?any pressure, standing, walking.?Treatments:?none.?Misc:?hx of? Back surgery L3L4L5 ([place])..? * ROS:?General/Constitutional:?Nausea?denies.?Vomiting?denies.?Hunger Thirst?denies.?Loss appetite?denies.?Chills?denies.?Fatigue?denies.?Fever?denies.?Night Sweats?denies.?Unexplained weight loss?admits.?Ophthalmologic:?Blurred vision?denies.?Red eye?denies.?HEENTM:?Dentures?denies.?Dizziness?denies.?Glasses/contacts?denies.?Retinopathy?de nies.?Blurred/double vision?denies.?TMJ?denies.?Discharge/drainage?denies.?Implants?denies.?Hard of hearing denies.?Difficulty chewing/swallowing/speaking?denies.?Nose bleeds?denies.?Sore mouth?denies.?Swollen glands?denies.?Respiratory:?On Oxygen?denies.?Pneumonia/pleurisy?denies.?Bronchitis?denies.?Emphysema?denies.?C oughing?denies.?Cough blood?denies.?Shortness of breath?denies.?Wheezing?denies.?Cardiovascular:?Pacemaker?denies.?MVP?denies.?WPW?denies.?CHF?denies.?Heart attack?denies.?Septal defect?denies.?Rapid beat?denies.?Chest pain ?denies.?Atrial Fib.?denies.?Murmur/Palpitations?denies.?Gastrointestinal:?Hemorrhoids?denies.?Stomach/Abdominal pain?denies.?Dark blood stool?denies.?Irritable bowel ?denies.?Constipation?denies.?Diarrhea?denies.?Vomiting?denies.?Hematology:?Swelling?denies.?Bruising?admits.?Bleeding problem?denies.?Genitourinary:?Blood urine?denies.?Frequent/Painfu/urination/bladder control?admits.?Kidney stones?admits.?Infection (UTI)?denies.?Nephropathy?denies.?Musculoskeletal:?Hammertoes?admits.?Bunions?denies.?Scoliosis/kyphosis?denies.?Muscle cramps / walking?admits.?Generalized aches and pains?admits.?Weakness?admits.?Integ.:?Prince?denies.?Scars?denies.?Corns/calluses?admits.?Ingrown nails?admits.?Painful nails?admits.?Rashes?denies.?Neurologic:?Difficulty sleeping?denies.?Bipolar?denies.?Brain disorder?denies.?Balance trouble?denies.?Confusion?denies.?Fainting/blackouts?denies.?Headache?denies.?Tr emors?denies.? * Medical History:? * Surgical History:?knee repla cment 05/23/23hysterectomy 02/2012HT Right 2&3 01/07/2015back surgery 07/2020Gall bladder removal 12/21/23 * Hospitalization/Major Diagno stic Procedure:?Denies Past Hospitalization * Family History:?Mother: bruno sandy, diagnosed with Family history of arthritis.?Father: .?Siblings: diagnosed with Unspecified essential hypertension, Family history of arthritis.? * Social History:?Tobacco Use:?Tobacco Use/Smoking?Are you a:?current smoker ?How often do you smoke cigarettes??every day ?How many cigarettes a day do you smoke??21-30 ?Tobacco use other than smoking?Are you an other tobacco user??No ???Miscellaneous:?Caffeine: yes, frequency:, 1-2 cups per day. ?Children: no. ?Exercise: yes, Walking/Bike riding. ?Marital status: . 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 * Medications:?TakingMeribin S olifenacin Succinate Omeprazole Gabapentin 300 MG Capsule 1 capsule Orally three times day Work Note . . . . patient is disabled from work until further notice Aleve Kym Allergy Flonase 50 MCG/ACT Suspension 1 spray in each nostril Nasally Once a day ASO Ankle/Foot Stablizing AFO As directed Wear Daily Work Note . . . . pt our of work for 1 more month s/p foot surgery Ibuprofen 800 MG Tablet 1 tablet every Orally every 12 hrs Taking Meribin Taking Solifenacin Succinate Taking Omeprazole Taking Gabapentin 300 MG Capsule 1 capsule Orally three times day Taking Work Note . . . . patient is disabled from work until further notice Taking Aleve Taking Kym Allergy Taking Flonase 50 MCG/ACT Suspension 1 spray in each nostril Nasally Once a day Taking ASO Ankle/Foot Stablizing AFO As directed Wear Daily Taking Work Note . . . . pt our of work for 1 more month s/p foot surgery Taking Ibuprofen 800 MG Tablet 1 tablet every Orally every 12 hrs Not-Taking/PRNMeloxicam 15 MG Tablet 1 capsule Orally Once a day , Notes to Pharmacist: PRNWalking Boot/Pneumatic As directed Wear Daily AFO-fixed . Ankle- Foot Orthotic 1 . Wear daily traMADol HCl Percocet 5-325 MG Tablet 1 tablet as needed Orally every 6 hrs Not-Taking/PRN Meloxicam 15 MG Tablet 1 capsule Orally Once a day , Notes to Pharmacist: PRNNot-Taking/PRN Walking Boot/Pneumatic As directed Wear Daily Not-Taking/PRN AFO-fixed . Ankle-Foot Orthotic 1 . Wear daily Not- Taking/PRN traMADol HCl Not-Taking/PRN Percocet 5-325 MG Tablet 1 tablet as needed Orally every 6 hrs UnknownWork Note . . . . pt our of work for 1 more month s/p foot surgery Medication List reviewed and reconciled with the patientUnknown Work Note . . . . pt our of work for 1 more month s/p foot surgery Medication List reviewed and reconciled with the patient * Allergies:?Percocet: vomitin gBactrim: nauseayes[Allergies Verified] Objective: * Vitals:?Ht: 6ng44tp, Wt:195, BMI:27.98, Shoe size: 10, BP:135/80mm Hg, Ht-cm: 177.8 cm, Wt-k.45 kg. * Examination: ???General Examination: ?GENERAL APPEARANCE:?Reveals a pleasant, alert, well nourished, well- developed, well hydrated individual, who demonstrates proper attention to hygiene/body habitus, and is in no acute distress, Pt serves as own historian for office visit today.?ORIENTED:?person, place, and time.?Orthopedic: ?MUSCLE STRENGTH:?5/5 all groups in a symmetrical fashion, B/L.?GAIT ABNORMALITY:?Pronated, abducted angle and base of gate.?FOOT MORPHOLOGY:?, Pes Planus structure, Semi-rigid, B/L, Pain on palpation, midfoot b/l.?TAILOR'S BUNION:?Enlarged, painful, prominent, inflamed 5th Metatarsal Base, RIGHT.?DIGITAL DEFORMITIES:?Digital contracture, PIPJ, 2-5 B/L, incompl-reducible with WB, or to push-up test, no over, nor underlapping.?Neurological: ?SENSORY:?Neurological exam demonstrates reduced sharp/dull pin prick discrimination reduced light touch sensation reduced vibration sensation reduced proprioception sensation in a stocking fashion 5.07 monofilament test performed at plantar aspects of 5 varied sites per foot shows sensation plantar aspects absent at Forefoot B/L, Pt relates, numbness, burning, hyperesthesia, paresthesia, pins and needles sensation, shooting/radiating sensation, stinging, tingling, at rest, especially in the evening, B/L 40 % reduction for 6 hours during the day.?TINEL'S COMPRESSION:? Negative, Medial dorsal cutaneous nerve distribution, Intermediate dorsal cutaneous nerve distribution, Deep peroneal nerve distribution, B/L.?Vascular: ?DP PULSES (B):?2/4, B/L.?PT PULSES (B):?2/4, B/L.?CAPILLARY FILL TIME:?immediate, all digits, B/L.?TROPHIC CONDITION-TEXTURE/ELASTICITY/TURGOR/HAIR GROWTH (B):?normal, B/L.?TEMPERTURE GRADIENT (C):?normal, warm to cool, proximal to distal, B/L, B/L.?PIGMENTATION:?normal, B/L.?EDEMA (C):?absent, B/L.?Dermatologic: ?SKIN FINDINGS:?Skin exam reveals normal color, texture, elasticity, and turgor. There are no masses, nor excrescences. The interspaces are clear, B/L.?X-Rays - IMAGING REPORT: ?Clinical Indication(s):?Evaluate for Fracture, Evaluate Biomechanical Deformity.?Views:?3 views of Foot, RIGHT, AP, LAT, LO, Taken by a trained Podiatric Job Coach/Job Developer ( SF ).?Findings:?dorsal degenerative changes of the tarsal joints, hypertrophy of 5th MT Base/Styloid process.?Foot structure:?reveals excess pronation with, anterior break in cyme line.?Digits:?show asymmetrical joint space narrowing at the PIPJ consistent with clinical finding of hammertoe deformity.?Fracture:?Negative fractures identified.? * Physical Examination:?L2999 Supplies:?Including:?Insoles-pedag # 40.? Assessment: * Assessment: 1.?Pain in left foot - M79.6 72???2.?Neuritis - M79.2 (Primary)???Specify :Response to treatment - Improvement???3.?Pain in left ankle and joints of left foot - M25.572???4. Pain in right foot - M79.671???5.?Pain in right ankle and joints of right foot - M25.571???6.?Neuropathy - G62.9???7.?Bursitis of right foot - M77.51???Specify :Acute problem, Complicated w/ Multiple Tx Options(4) Dx New problem, Prognosis Uncertain (4)???8.?Hypertrophy of bone of foot - M89.379???9.?Osteoarthritis of right ankle and foot - M19.071??? Plan: * Treatment: * Procedure Codes:?16521 X-RAY EXAM OF RIGHT FOOT 3V, Modifiers: 26 , RT * Preventive Medicine:? ??Counseling:?Discussion:?-14: Office or other outpatient visit for the evaluation and management of an established patient, which required a medically appropriate history and/or examination and MODERATE level of DECISION MAKING for: 1 OR MORE CHRONIC PROBLEM(S) THATS WORSENING, 2 STABLE CHRONIC PROBLEMS, A NEWLY DIAGNOSED PROBLEM WITH UNCERTAIN PROGNOSIS, AN ACUTE COMPLICATED INJURY WITH MULTIPLE TREATMENT OPTIONS, OR AN ACUTE PROBLEM WITH ACCOMPANYING SYSTEMIC SYMPTOMS, THAT POSE(S) A MODERATE RISK OF MORBIDITY. THIS CONDITION MAY ALSO INCLUDE RX DRUG MANAGEMENT, OR A DECISON FOR MINOR SURGERY. The visit on the day of the encounter encompassed interpreting the data and educating the patient as to the nature of their condition, treatment options available according to their individual PMH, meds, allergies, and overall health/living conditions, as well as any potential risks or complications that may occur from a failure to adhere to, and participate in, the recommended course of therapy. The discussion included a complete verbal, and/or written explanation of the examination results, any x-rays taken, the proposed diagnosis, and outline of the treatment plan. A schedule for future care needs was also explained. The patient verbalized an understanding of the instructions at this time and agreed to be an active participant in their treatment. If the patient should think of any questions or concerns after the visit, I have encouraged the patient to call the office.?Arthritis:?The patient was counseled on the various etiologies for their Arthritis including genetic, history of injury or trauma, abnormal foot biomechanics leading to excessive joint wear, and use/overuse. We discussed the various treatment options from no treatment, to topical analgesics such as Biofreeze gel, Aspercream, Voltaren gel, Lidoderm patches, CBD oils, THC creams, and Custom-compounded topical cream preparations to natural oral products such as Glucosamine Sulfate/Chondroitin/MSM/Collegen to analgesic Tylenol, to anti-inflammatory medications such as Ibuprofen/Naproxen, and the use of oral steroids if needed. Cardiac, Kidney, and GI issues were discussed RE: potential complications of oral anti-inflammatories. We discussed several other treatment options consisting of accom shoes, supportive innersoles, AFO bracing/support, cortisone injection therapy, and surgical resection of the arthritic joint(s) or fusion reconstruction if necessary. We discussed the advantages and disadvantages of conservative (vs) surgical treamtents including pain relief, improved function/activities of daily life, return to exercise to failure, expense, systemic complications, infection, qefqwen-qrj-uwjdeby, prolongued postop course. Patient questions re: the various treatment options available, their successes and potential failures, and custodial effects were discussed and the answers were verbally confirmed understood, The Pt. was counseled on the x-rays,treatment options, and the importance of following all homecare instructions, Recommended Topical analgesics including Biofreeze/Aspercream/Voltaren gel.?BioMech.:?I discussed the Pts foot biomechanics with them and how it relates to their problem, Pt is fitted for an OC orthotic to help address their issues..?Neuritis/Neuropathy:?Pt to continue gabapentin as per Neurologist.?Orthotic Dispensing:?The OTC inserts are properly fitted to the patient's feet in both weight-bearing and non-weight bearing attitudes. The patient was instructed to gradually increase the amount of time they are wearing the orthoses, starting with one hour the first day and thereon progressively increasing the amount of time used until they are comfortable to be worn all day and with all activities. They were asked to call the office if any signs of skin irritation were noted including redness, blistering or callous formation. The patient verbally indicated a full understanding of all the above information.? * Follow Up:?2 Months * Images: * Sign off status: Completed true * Provider:?Charlette Desir DPM Date:?2024 Generated for Slime figueroa/Villa/Renetta on:?11/13/2024 09:54 AM EDT History and Physical Notes * HPI (History of Present Illness) Category Sub-Category Detail Notes Category Not es Foot Pain Nature: Aching, stiffness, swelling, throbbing, Location: Midfoot, , RIGHT Duration: , several years Onset: after multiple days of yard work Course: , worse Aggravated: any pressure, standi ng, walking Treatments: none Misc: hx of Back surgery L 3L4L5 (lower Lumber). Physical Examination Category Sub-Category Detail Notes Section Note s L2999 Supplies Including: Insoles-pedag # 40 Examination Category Sub-Category Detail Notes Category Not es Neurological SENSORY: Neurological exa m demonstrates reduced sharp/dull pin prick discrimination reduced light touch sensation reduced vibration sensation reduced proprioception sensation in a stocking fashion 5.07 monofilament test performed at plantar aspects of 5 varied sites per foot shows sensation plantar aspects absent at Forefoot B/L, Pt relates, numbness, burning, hyperesthesia, paresthesia, pins and needles sensation, shooting/radiating sensation, stinging, tingling, at rest, especially in the evening, B/L 40 % reduction for 6 hours during the day TINEL'S COMPRESSION: Negative, Medial do rsal cutaneous nerve distribution, Intermediate dorsal cutaneous nerve distribution, Deep peroneal nerve distribution, B/L Dermatologic SKIN FINDINGS: Skin exam reveal s normal color, texture, elasticity, and turgor. There are no masses, nor excrescences. The interspaces are clear, B/L Orthopedic GAIT ABNORMALITY: Pronated, abducted angl e and base of gate FOOT MORPHOLOGY: , Pes Planus structu re, Semi-rigid, B/L, Pain on palpation, midfoot b/l DIGITAL DEFORMITIES: Digital contracture , PIPJ, 2-5 B/L, incompl-reducible with WB, or to push-up test, no over, nor underlapping TAILOR'S BUNION: Enlarged, painful, p rominent, inflamed 5th Metatarsal Base, RIGHT MUSCLE STRENGTH: 5/5 all groups in a symmetrical fashion, B/L General Examination GENERAL APPEARANCE: Reveals a pleasant, alert, well nourished, well-developed, well hydrated individual, who demonstrates proper attention to hygiene/body habitus, and is in no acute distress, Pt serves as own historian for office visit today ORIENTED: person, place, and t nick Vascular DP PULSES (B): 2/, B/L PT PULSES (B): 2/4, B/L CAPILLARY FILL TIME: immediate, all digi ts, B/L TEMPERTURE GRADIENT (C): normal, warm to cool, proximal to distal, B/L, B/L TROPHIC CONDITION-TEXTURE/ELASTICITY/TURGOR/HAIR GROWTH (B): normal, B/L EDEMA (C): absent, B/L PIGMENTATION: normal, B/L X-Rays - IMAGING REPORT Findings: dorsal d egenerative changes of the tarsal joints, hypertrophy of 5th MT Base/Styloid process Fracture: Negative fractures i dentified Digits: show asymmetrical kalpana int space narrowing at the PIPJ consistent with clinical finding of hammertoe deformity Foot structure: reveals excess prona tion with, anterior break in cyme line Views: 3 views of Foot, RIG HT, AP, LAT, LO, Taken by a trained Podiatric Job Coach/Job Developer ( SF ) Clinical Indication(s): Evaluate for Fra cture, Evaluate Biomechanical Deformity
--- OUTSIDE RECORDS SUMMARY | 2024-11-13 09:55 | XMS_ITS ---
Author Organization [facility] Address [address] [place] [address] Care Team Providers Care Tractor Operator Laser Leveling Name Role Phone Johann Cunningham MD Primary Care Provider Unavaila ble Black, Charlette Unavailable [phone] REASON FOR VISIT BUY Sha Vitale (fernando) #40 / L 10 Encounters Encounter Location Date Provider Diagnosis [facility] [address] [place] [address] 09/18/2024 Charlette Black Plan Of Treatment No Information Progress Notes * Gabriela MYERS ADOB:1959 (64 yo F)Acc No.[id number]:09/18/2024 Patient:?Gabriela MYERS :1960???Age:64 Y???Sex:Female Address:[address] [place] [address], [address] * true * Date:? Generated for Printi ng/Villa/eTransmitting on:?11/13/2024 09:55 AM EDT
== END 2024-11-13 10:41 | disposition home or self-care (01) ==
LOC: HO.HMCHD 09:38
PROVIDERS: PCP Internal Medicine; Visit Provider Internal Medicine
DX: N95.8 Other specified menopausal and perimenopausal disorders (principal); G62.9 Polyneuropathy, unspecified; M85.80 Other specified disorders of bone density and structure, unspecified site; M48.061 Spinal stenosis, lumbar region without neurogenic claudication

== ENCOUNTER → 2024-11-13 09:38 | Outpatient (BNVA) | payer OTHER, SELFPAY | PROVIDERS: PCP Internal Medicine; Visit Provider Internal Medicine | DX: M48.061 Spinal stenosis, lumbar region without neurogenic claudication (principal); N32.81 Overactive bladder; N95.8 Other specified menopausal and perimenopausal disorders; G62.9 Polyneuropathy, unspecified; G89.4 Chronic pain syndrome; N81.10 Cystocele, unspecified; M85.80 Other specified disorders of bone density and structure, unspecified site; N39.3 Stress incontinence (female) (male); Z96.0 Presence of urogenital implants | CPT/HCPCS: 96127 ==

== ENCOUNTER 2024-12-08 06:01 | Outpatient (REF) | payer OTHER, SELFPAY ==
--- OUTSIDE RECORDS SUMMARY | 2024-12-08 06:05 | XMS_ITS | Patient Health Record ---
[facility] [address] [place] [address] Care Team Providers Care Log Yard Derrick Operator Name Role Phone Johann Cunningham MD Primary Care Provider Unavaila ble Charlette Desir Unavailable [phone] Allergies Allergen (clinical drug ingredient) Drug/Non Drug Allergy documented on EMR Reaction Allergy Type Onset Date Status sulfamethoxazole / trimethoprim Bactrim nausea Drug Allergy Active acetaminophen / oxycodone Percocet vomiting Drug Allergy Active Results Component Value Reference Range Notes X ray : Foot, left 3V Reviewed [...] Referring Provider Last Name Marisa Referred Organization [facility] Referred Provider Charlette Desir Referred Address [address],[place], [place],[address],[place] Referred Provider Specialty Podiatry Referral Priority Routine [...] Problem Acquired hammer toe of right foot (5851223349747503 ) Other hammer toe(s) (acquired), right foot (M20.41) Active confirmed Problem Acquired hammer toe of left foot (8656985280890324 ) Other hammer toe(s) (acquired), left foot (M20.42) Active confirmed Problem Neuropathy (837788666) Neuropathy (G62.9) Active confirmed Problem Osteoarthritis o f right ankle and foot (M19.071) Active confirmed Problem Osteoarthritis of midtarsal joint of left foot (2903000156215636 ) Osteoarthritis of midtarsal joint of left foot (M19.072) Active confirmed Vital Signs Blood pressure diastolic 80 mm Hg 09/18/2024 Height 1ko18cv in 09/18/2024 Blood pressure systolic 135 mm Hg 09/18/2024 Weight 195 lbs 09/18/2024 BMI 27.98 kg/m2 09/18/2024 Encounters Encounter Location Date Provider Diagnosis [address] [address] 05/12/2024 Charlette Black Pain in left foot M79.672 ; Neuritis M79.2 ; Pain in left ankle and joints of left foot M25.572 ; 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671 ; Pain in right ankle and joints of right foot M25.571 ; Neuropathy G62.9 ; Bursitis of right foot M77.51 ; Hypertrophy of bone of foot M89.379 and Osteoarthritis of right ankle and foot M19.[address] [address] 05/12/2024 Charlette Black [facility] [address] [place] [address] 09/18/2024 Char[facility] Encounter Date Diagnosis (ICD Code) Assessment [...] X ray : Foot, right 3V 12/02/2018 [id number], [id number] INJECT or DRAIN, JOINT/BUR SA 07/16/2019 Insurance Providers Payer Name Payer Address Payer Phone Subscriber Number Group Number Insured Name Patient Relationship to Insured Coverage Start Date Coverage End Date [facility] [address] [place] [address] [phone] [id number] Richard Myers Spouse - patient is the [...]
[2024-12-08 06:13] LABS: MANUAL DIFF FLAG NO
[2024-12-08 07:13] LABS: Basophils Absolute Auto 0.1 X10*3/uL (0.0-0.2); Eosinophils Absolute Auto 0.1 X10*3/uL (0.0-0.4); Eosinophils Percent Auto 2.4 % (0-4); Hematocrit 41.2 % (37.0-47.0); Hemoglobin 13.7 g/dl (12.0-16.0); Imm Gran Abs Auto 0.01 X10*3/uL (0.00-0.03); Imm Gran Pct Auto 0.2 % (0.0-0.4); Lymphocytes Absolute Auto 1.3 X10*3/uL (1.2-4.9); Lymphocytes Percent Auto 22.2 % (20-40); Mean Corpuscular HGB Conc 33.3 g/dl (31.0-35.0); Mean Corpuscular Hemoglobin 32.4 pg (27.0-33.0); Mean Corpuscular Volume 97.4 fL (80.0-98.0); Mean Platelet Volume 10.5 fL (9.4-12.3); Monocytes Absolute Auto 0.4 X10*3/uL (0.1-1.2); Monocytes Percent Auto 6.5 % (2-11); Neutrophils Percent Auto 67.7 % (45-73); Platelet Count 237 X10*3/uL (160-400); Red Blood Count 4.23 X10*6/uL (4.20-5.50); Red Cell Distribution Width 12.3 % (11.0-16.0); White Blood Count 5.9 X10*3/uL (4.8-10.8)
[2024-12-08 07:38] LABS: Alanine Aminotransferase 12 U/L (0-31); Albumin Level 4.5 g/dL (3.5-5.0); Alkaline Phosphatase 65 U/L (39-117); Anion Gap 13 (12-20); Aspartate Amino Transferase 15 U/L (5-31); Bilirubin Total 0.4 mg/dL (0.0-1.0); Blood Urea Nitrogen 16 mg/dL (9-16); Calcium 9.6 mg/dL (8.4-10.2); Carbon Dioxide 26 mmol/L (22-29); Chloride 108 mmol/L (96-108); Cholesterol 262 mg/dL (<200); Estimated Glomerular Filt Rate > 60; Glucose Random 94 mg/dL (60-115); HDL Cholesterol 54 mg/dL (>40); LDL Cholesterol Calculated 178 mg/dL (<100); Potassium 4.3 mmol/L (3.3-5.1); Sodium 143 mmol/L (135-145); Total Protein 6.7 g/dL (6.5-8.0); Triglycerides 153 mg/dL (<150)
[2024-12-08 07:54] LABS: TSH reflex Free T4 3.09 uIU/mL (0.32-4.0)
[2024-12-12 14:39] LABS: Vitamin D 25-OH, D2 <4 ng/mL; Vitamin D 25-OH, D3 65 ng/mL; Vitamin D 25-OH, Total 65 ng/mL (30-100)
== END 2024-12-08 06:02 | disposition home or self-care (01) ==
LOC: HO.LAB 06:01
PROVIDERS: PCP Internal Medicine; Visit Provider Internal Medicine
DX: Z13.228 Encounter for screening for other metabolic disorders (principal); Z13.0 Encounter for screening for diseases of the blood and blood-forming organs and certain disorders involving the immune mechanism; Z13.6 Encounter for screening for cardiovascular disorders; M85.80 Other specified disorders of bone density and structure, unspecified site; G89.4 Chronic pain syndrome; N39.3 Stress incontinence (female) (male)
CPT/HCPCS: 36415; 80053; 80061; 82306; 84443; 85025

== ENCOUNTER 2024-12-29 11:12 | Outpatient (AMB) | payer OTHER, SELFPAY ==
--- NOTE | 2024-12-28 15:28 | MHC.OFFVIS ---
Intake Visit Reasons: 6m follow up Intake Note: Patient is present for a 6m follow up Urology Med: Myrbetriq, Estradiol Antibiotic Allergy: Sulfa, Trimethroprim Blood Thinner: None PVR: 28ml Accompanied by: Self / Same As Patient Allergies gabapentin Allergy (Intermediate, Verified 12/29/24 11:26) swelling of hands and feet Sulfa (Sulfonamide Antibiotics) Allergy (Intermediate, Verified 12/29/24 11:26) diarrhea sulfamethoxazole (From BACTRIM) Allergy (Intermediate, Verified 12/29/24 11:26) N/V trimethoprim (From BACTRIM) Allergy (Intermediate, Verified 12/29/24 11:26) N/V oxycodone (Percocet) Adverse Reaction (Intermediate, Verified 12/29/24 11:26) stomach upset Medication List - Last Reconciled 12/29/24 by Nick Nunez MD cetirizine (Zyrtec) 10 mg PO DAILY cholecalciferol (vitamin D3) 125 mcg PO DAILY clobetasol 0.05% 1 appl topical DAILY 1 week clotrimazole-betamethasone 1-0.05 % 1 appl topical BID cyanocobalamin (vitamin B-12) 5,000 mcg PO DAILY estradiol 0.01%(0.1mg/gram) apply thin coat daily 30 days fluticasone propionate 50 mcg/actuation 1 spray intranasal DAILY ketorolac 10 mg PO Q6H PRN mirabegron ER (Myrbetriq) 50 mg PO DAILY omega 0-yfp-dyi-fish oil 300-1,000 mg (Fish Oil) 1 cap PO DAILY pravastatin 20 mg PO BEDTIME solifenacin (Vesicare) 5 mg PO BEDTIME HPI Comments Details: 12/29/2024--follow-up overactive bladder, cystocele Managed with pessary and Myrbetriq 50 mg daily History of Present Illness - The patient is a 64-year-old female presenting with overactive bladder and cystocele. - Overactive bladder and cystocele are managed with a pessary and medications, including Mirabegron and Solifenacin. - The patient independently manages the pessary and reports effective symptom control with the current medication regimen. - A follow-up is planned in one year to reassess the management plan. Results - Urinalysis: Within normal limits, blood negative 06/30/24--Sweta is states she has retired, followed for pelvic floor weakness and cystocele with overactive bladder symptoms. She is on Myrbetriq 50 mg daily. Vaginal cystocele is managed with pessary. She was seen last in the office on 03/17/2024. She states the Myrbetriq works during the daytime but she is getting up frequently at nighttime, and will sometimes leak before getting to the bathroom. Denies dysuria. Will empirically add VESIcare 5 mg at bedtime. She is able to remove pessary and clean it at home. I have discussed if the pessary starts to get worn that we will order another one. Will send a surveillance urine culture. 03/17/2024--Sweta is followed for pelvic floor weakness and cystocele with overactive bladder symptoms. She is on Myrbetriq 50 mg daily. Vaginal cystocele is managed with pessary. She states that she has had a flare in her lichen sclerosis symptoms. She uses clobetasol that is prescribed by Dr. Raya but it is not helping. She states that when she urinates it stoddard on the skin. Urinalysis is negative. I want her to follow-up with [facility] [facility] to be further evaluated. I will empirically try a steroid cream with an antifungal component to see if this may be helpful. 12/31/23-- Sweta is a 63-year-old female who presents to the office for 6-months follow-up for cystocele with pessary maintenance, OAB and pelvic floor weakness. She states that she feels that for the last several weeks pessary is laying lower especially when standing. On exam Pessary refitting - pessary removed and new pessary size 4 ring/wo support. Will continue Myrbetriq 50 mg qd. 07/06/23--Sweta is a 62-year-old female who presents to the office for 6-months follow-up for cystocele with pessary maintenance, OAB and pelvic floor weakness. She states that she had knee surgery 6 weeks ago, she states that the pessary kept dropping low so she removed it and has recently put it back in about 3-4 days. She has been doing kegels. Evaluation today-- UA - no signs of infection. Plan: Cont Myrbetriq 50 mg QD 6/8/23-- The patient was last seen on 05/25/22. She states she has been managing the pessary, and is able to remove and clean it. States having frequent voiding episodes and irritated skin due to wiping. The patient mentions occasional urinary episodes after every hour or two. Mentions drinking adequate amount of water. At once occasion the patient had episodes of nocturia every hour or 20 minutes. Has nocturia episodes which she links with increased fluid consumption during the day. The patient is using estradiol cream. [facility] Medical History Hammer toe Osteoarthritis, generalized Chronic pain syndrome Spinal stenosis of lumbar region Surgical History H/O colonoscopy (~02/06/24) Hx laparoscopic cholecystectomy Total knee replacement status H/O toe surgery H/O laminectomy S/P discectomy for herniated nucleus pulposus H/O: hysterectomy H/O knee surgery Family History Father Heart disease Stroke Maternal Grandfather Stroke Paternal Uncle Cancer Father No problems noted. Social History Household Members: Spouse Housing: House Alcohol intake: current Alcohol intake frequency: holidays/special occasions only Comment: counts correct Patient Tobacco Use Status: Current someday Tobacco user Tobacco use type: Cigarette Cigarettes Per Day: 3 Years Smoked: stopped few months ago e-Cigarette/Vaping Use: Currently Using service: No Current occupational status: employed and retired Current occupation: [employer] Current occupational exposures/hazards: No Sexual orientation: Straight/Heterosexual Gender identity: Female Cognitive needs: No Hearing needs: No Vision needs: Yes (rx glasses) Review of Systems Const All systems reviewed & are unremarkable except as noted in HPI and below Reports no additional complaints Eyes Reports no additional complaints ENT Reports no additional complaints Card Reports no additional complaints Resp Reports no additional complaints GI Reports no additional complaints Reports as per HPI Musc Reports no additional complaints Skin/Breast Reports system reviewed and no additional complaints, except as documented Neuro Reports no additional complaints Psych Reports no additional complaints Endo Reports no additional complaints Ba/Lymph Reports no additional complaints Aller/Immun Reports no additional complaints Results AMB Urinalysis, Automated UA Leukoctes 500 Ana/uL Last Edit by Priti Junior on 12/29/24 16:55 UA Nitrite Negative Last Edit by Priti Pacheco on 12/29/24 16:55 UA Urobilinogen 3.5 mg/dL Last Edit by Priti Pacheco on 12/29/24 16:55 UA Protein 0 mg/dL Last Edit by Priti Pacheco on 12/29/24 16:55 UA pH 7.0 Last Edit by Priti Pacheco on 12/29/24 16:55 UA Blood 0 Carlos/uL Last Edit by Priti Pacheco on 12/29/24 16:55 UA Specific Jamison 1.005 Last Edit by Priti Pacheco on 12/29/24 16:55 UA Ketone Negative Last Edit by Priti Pacheco on 12/29/24 16:55 UA Bilirubin 0 mg/dL Last Edit by Priti Pacheco on 12/29/24 16:55 UA Glucose 0 mg/dL Last Edit by Priti Pacheco on 12/29/24 16:55 Results Reviewed Results Reviewed: Laboratory Last Values Urine pH (Auto) 7.0 12/29/24 15:39 Specific Jamison (Auto) 1.005 12/29/24 15:39 Urine Protein (Auto) 0 mg/dL 12/29/24 15:39 Glucose (UA)(Auto) 0 mg/dL 12/29/24 15:39 Urine Ketones (Auto) Negative 12/29/24 15:39 Urine Blood (Auto) 0 Carlos/uL 12/29/24 15:39 Urine Nitrite (Auto) Negative 12/29/24 15:39 Urine Bilirubin (Auto) 0 mg/dL 12/29/24 15:39 Urine Urobilinogen (Auto) 3.5 mg/dL 12/29/24 15:39 Leukocyte Esterase (Auto) 500 Ana/uL 12/29/24 15:39 Assessment & Plan Assessment & Plan (1) JAMEL (stress urinary incontinence, female): Code(s): N39.3 - Stress incontinence (female) (male) Category: Medical (2) Cystocele: Category: Medical (3) Pelvic floor weakness: Code(s): N81.89 - Other female genital prolapse Category: Medical (4) OAB (overactive bladder): Code(s): N32.81 - Overactive bladder Category: Medical Plan Plan - Continue current medications, Myrbetriq, vesicare for overactive bladder - Maintain home management of the pessary. - Follow up in one year for reassessment. Orders: Orders AMB Urinalysis Automated 12/29/24 Z13.9 - Encounter for screening, unspecified Patient Instructions: The patient had an opportunity to ask questions regarding treatment plan. The patient expressed understanding and agreement with the above treatment plan. The patient is aware they should contact our office by phone for worsening of their current condition or the appearance of new symptoms. Compliance is encouraged with any medications and followup testing that is ordered. It is a privilege to be allowed the opportunity to participate in the urologic care of your patient. If you have any questions or concerns regarding treatment for the above conditions please do not hesitate to contact me. The office telephone contact is [phone]. This note is constructed in part using voice recognition software. While every effort has been made to ensure accuracy business office associate errors may have been included. Yours sincerely, Nick Nunez MD Scribe Plan - Not visible on output: Patient was informed and verbally consented to the use of an ambient scribe for clinic note documentation during this visit. Coding Level of Care Code Est Pt Level 3 (03440) Complex EM visit Add On G2211 Diagnoses JAMEL (stress urinary incontinence, female) N39.3 Cystocele Pelvic floor weakness N81.89 OAB (overactive bladder) N32.81
--- OUTSIDE RECORDS SUMMARY | 2024-12-29 12:10 | XMS_ITS | Patient Health Record ---
[facility] Address [address] [place] [address] Care Team Providers Care Home Care Provider Name Role Phone Johann Cunningham MD Primary Care Provider Unavaila ble Charlette Desir Unavailable [phone] Allergies Allergen (clinical drug ingredient) Drug/Non Drug [...] Referring Provider Last Name Marisa Referred Organization [facility] Referred Provider Charlette Desir Referred Address [address],[facility] [place],[address],[place] Referred Provider Specialty Podiatry Referral Priority Routine Medications Medication SIG (Take, Route, Frequency, Duration) Notes Start Date End Date Status ASO Ankle/Foot Stablizing AFO As directed Wear Daily; Duration: as needed 09/15/2019 Active Work Note . . . pt our of work f or 1 more month s/p foot surgery Active Meribin Active Aleve Active Work Note . . . pt our of work f or 1 more month s/p foot surgery 02/17/2015 Unknown Kym Allergy Acti ve Flonase 50 MCG/ACT 1 spray in each nost ril Nasally Once a day; Duration: 30 day(s) Active Meloxicam 15 MG 1 capsule Orally Onc e a day PRN Not-Taking Solifenacin Succinate Active Walking Boot/Pneumatic As directed Wear Daily; Duration: Until further notice 03/03/2019 Not-Taking Omeprazole Active AFO-fixed . 1 . Wear daily; Duration: . Not-Taking Gabapentin 300 MG 1 capsule Orally thr ee times day; Duration: 30 days Active traMADol HCl Not-Darrius ing Work Note . . . patient is disab led from work until further notice Active Percocet 5-325 MG 1 tablet as needed Orally every 6 hrs; Duration: as needed 12/21/2014 Not-Taking Ibuprofen 800 MG 1 tablet every Orall y every 12 hrs; Duration: as needed 12/21/2014 Active Social History Tobacco [...] Problem Acquired hammer toe of right foot (5256885167774566 ) Other hammer toe(s) (acquired), right foot (M20.41) Active confirmed Problem Acquired hammer toe of left foot (0864071609153639 ) Other hammer toe(s) (acquired), left foot (M20.42) Active confirmed Problem Neuropathy (871701200) Neuropathy (G62.9) Active confirmed Problem Osteoarthritis o f right ankle and foot (M19.071) Active confirmed Problem Osteoarthritis of midtarsal joint of left foot (2754786914936012 ) Osteoarthritis of midtarsal joint of left foot (M19.072) Active confirmed Vital Signs Blood pressure diastolic 80 mm Hg 09/18/2024 Height [id number] in 09/18/2024 Blood pressure systolic 135 mm Hg 09/18/2024 Weight 195 lbs 09/18/2024 BMI 27.98 kg/m2 09/18/2024 Encounters Encounter Location Date Provider Diagnosis [address] [address] 05/12/2024 Charlette Black Pain in left foot M79.672 ; Neuritis M79.2 ; Pain in left ankle and joints of left foot M25.572 ; Osteoarthritis of midtarsal joint of left foot M19.072 ; Pain in right foot M79.671 ; Pain in right ankle and joints of right foot M25.571 ; Osteoarthritis of midtarsal joint of right foot M19.071 and Neuropathy G62.[address] [address] 06/05/2024 Charlette Black Pain in left foot M79.672 ; Neuritis M79.2 ; Pain in left ankle and joints of left foot M25.572 ; Pain in right foot M79.671 ; Pain in right ankle and joints of right foot M25.571 and Neuropathy G62.[address] [address] 09/18/2024 Charlette Black Pain in left foot M79.672 ; Neuritis M79.2 ; Pain in left ankle and joints of left foot M25.572 ; Pain in right foot M79.671 ; Pain in right ankle and joints of right foot M25.571 ; Neuropathy G62.9 ; Bursitis of right foot M77.51 ; Hypertrophy of bone of foot M89.379 and Osteoarthritis of right ankle and foot M19.[address] [address] 05/12/2024 Charlette Desir [facility] [place] [address] [place] [address] 09/18/2024 Charlette Desir Assessments Encounter Date Diagnosis (ICD Code) Assessment [...] X ray : Foot, right 3V 12/02/2018 28157, J0702- INJECT or DRAIN, JOINT/BUR SA 07/16/2019 Insurance Providers Payer Name Payer Address Payer Phone Subscriber Number Group Number Insured Name Patient Relationship to Insured Coverage Start Date Coverage End Date [facility] [address] [place] [address] [id number] Richard Myers Spouse - patient is the [...]
== END 2024-12-29 11:55 | disposition home or self-care (01) ==
LOC: HO.HUSH 11:13
PROVIDERS: PCP Internal Medicine; Visit Provider Urology
DX: Z13.9 Encounter for screening, unspecified (principal)

== ENCOUNTER → 2024-12-29 11:12 | Outpatient (BNVA) | payer OTHER, SELFPAY | PROVIDERS: PCP Internal Medicine; Visit Provider Urology | DX: N39.3 Stress incontinence (female) (male) (principal); N32.81 Overactive bladder; N81.89 Other female genital prolapse | CPT/HCPCS: 81003 ==

== ENCOUNTER 2025-01-06 08:12 | Outpatient (AMB) | payer OTHER, SELFPAY ==
--- OUTSIDE RECORDS SUMMARY | 2025-01-06 08:16 | XMS_ITS | Patient Health Record ---
[facility] Address [address] [place] [address] Care Team Providers Care Football Pad Repairer Name Role Phone Johann Cunningham MD Primary Care Provider Unavaila ble Charlette Desir Unavailable [phone] Allergies Allergen (clinical drug ingredient) Drug/Non Drug [...] Referring Provider Last Name Marisa Referred Organization [facility] Referred Provider Charlette Desir Referred Address [address],[facility] [place],[address],[place] Referred Provider Specialty Podiatry Referral Priority Routine [...] Problem Acquired hammer toe of right foot ([id number] ) Other hammer toe(s) (acquired), right foot (M20.41) Active confirmed Problem Acquired hammer toe of left foot (7655751591846837 ) Other hammer toe(s) (acquired), left foot (M20.42) Active confirmed Problem Neuropathy (545531102) Neuropathy (G62.9) Active confirmed Problem Localized, primary osteoarthritis of the ankle and/or foot (582106918) Osteoarthritis of right ankle and foot (M19.071) Active confirmed Problem Osteoarthritis of midtarsal joint of left foot (3259717478264568 ) Osteoarthritis of midtarsal joint of left foot (M19.072) Active confirmed Vital Signs Blood pressure diastolic 80 mm Hg 09/18/2024 Height 9ci63mt in 09/18/2024 Blood pressure systolic 135 mm Hg 09/18/2024 Weight 195 lbs 09/18/2024 BMI 27.98 kg/m2 09/18/2024 Encounters Encounter Location Date Provider Diagnosis [address] [address] 05/12/2024 Charlette Black Pain in left foot M79.672 ; Neuritis M79.2 ; Pain in left ankle and joints of left foot M25.572 ; Osteoarthritis of midtarsal joint of left foot M19.072 ; Pain in right foot M79.671 ; Pain in right ankle and joints of right foot M25.571 ; Osteoarthritis of midtarsal joint of right foot M19.071 and Neuropathy G62.[address] [address] 06/05/2024 Charlette Black Pain in left foot M79.672 ; Neuritis M79.2 ; Pain in left ankle and joints of left foot M25.572 ; Pain in right foot M79.671 ; Pain in right ankle and joints of right foot M25.571 and Neuropathy G62.[address] [address] 09/18/2024 Charlette Black Pain in left foot M79.672 ; Neuritis M79.2 ; Pain in left ankle and joints of left foot M25.572 ; Pain in right foot M79.671 ; Pain in right ankle and joints of right foot M25.571 ; Neuropathy G62.9 ; Bursitis of right foot M77.51 ; Hypertrophy of bone of foot M89.379 and Osteoarthritis of right ankle and foot M19.071 [facility] [address] [address] 05/12/2024 Charlettevika Desir [facility] [address] [address] 09/18/2024 Charlette Desir Assessments Encounter Date Diagnosis [...] X ray : Foot, right 3V 12/02/2018 40881, J0702- INJECT or DRAIN, JOINT/BUR SA 07/16/2019 Insurance Providers Payer Name Payer Address Payer Phone Subscriber Number Group Number Insured Name Patient Relationship to Insured Coverage Start Date Coverage End Date [facility] Plan [address] [place] [address] [id number] Richard Myers Spouse - patient is the [...]
--- NOTE | 2025-01-06 08:30 | MHC.OFFVIS ---
Vital Signs 01/06/25 08:30 Height 5 ft 10 in Intake Visit Reasons: 6m Allergies Sulfa (Sulfonamide Antibiotics) Allergy (Intermediate, Verified 12/29/24 11:26) diarrhea sulfamethoxazole (From BACTRIM) Allergy (Intermediate, Verified 12/29/24 11:26) N/V trimethoprim (From BACTRIM) Allergy (Intermediate, Verified 12/29/24 11:26) N/V oxycodone (Percocet) Adverse Reaction (Intermediate, Verified 12/29/24 11:26) stomach upset Medication List - Last Reconciled 01/06/25 by Zenaida Cardoso CNP cetirizine (Zyrtec) 10 mg PO DAILY cholecalciferol (vitamin D3) 125 mcg PO DAILY clobetasol 0.05% 1 appl topical DAILY 1 week clotrimazole-betamethasone 1-0.05 % 1 appl topical BID cyanocobalamin (vitamin B-12) 5,000 mcg PO DAILY estradiol 0.01%(0.1mg/gram) apply thin coat daily 30 days fluticasone propionate 50 mcg/actuation 1 spray intranasal DAILY gabapentin mg PO mirabegron ER (Myrbetriq) 50 mg PO DAILY omega 4-lgz-rvw-fish oil 300-1,000 mg (Fish Oil) 1 cap PO DAILY omeprazole 20 mg PO DAILY pravastatin 20 mg PO BEDTIME solifenacin (Vesicare) 5 mg PO BEDTIME HPI Comments Details: She was doing okay. Still having zapping pains in both legs, worse at night, which makes falling asleep difficult. Some more numbness and tingling to left foot. Balance off at times, no falls. She has a history of burning and tingling in both feet with the left being worse than the right since around 2021. The symptoms are fairly constant. She has trouble sleeping at night. She also gets some tingling in her arms and hands. She was having severe low back pain for which she had a lumbar laminectomy and discectomy in 2020. That helped with her back pain but has not affected the numbness in her feet and the burning pain. She also gets sensations of electrical currents from the hips down in both lower extremities. [facility] Medical History (Updated 01/06/25 @ 08:34 by Zenaida Rondinelli, PROVIDER RELATIONS REPRESENTATIVE) Sensory peripheral neuropathy Sensory neuropathy Lumbar disc disease Hammer toe Osteoarthritis, generalized Chronic pain syndrome Spinal stenosis of lumbar region Surgical History H/O colonoscopy (~02/06/24) Hx laparoscopic cholecystectomy Total knee replacement status H/O toe surgery H/O laminectomy S/P discectomy for herniated nucleus pulposus H/O: hysterectomy H/O knee surgery Family History Father Heart disease Stroke Maternal Grandfather Stroke Paternal Uncle Cancer Father No problems noted. Social History Household Members: Spouse Housing: House Alcohol intake: current Alcohol intake frequency: holidays/special occasions only Comment: counts correct Patient Tobacco Use Status: Current someday Tobacco user Tobacco use type: Cigarette Cigarettes Per Day: 3 Years Smoked: stopped few months ago e-Cigarette/Vaping Use: Currently Using service: No Current occupational status: employed and retired Current occupation: [employer] Current occupational exposures/hazards: No Sexual orientation: Straight/Heterosexual Gender identity: Female Cognitive needs: No Hearing needs: No Vision needs: Yes (rx glasses) Review of Systems Const Denies chills, Denies daytime sleepiness, Reports difficulty sleeping, Denies fatigue, Denies fever(s), Denies frequent falls, Denies headache(s), Denies increased appetite, Denies poor appetite, Denies snoring, Denies weakness, Denies weight gain and Denies weight loss Eyes Denies loss of vision ENT Denies vertigo, Denies dizziness, Denies headache(s) and Reports neck pain Card Denies chest pain at rest, Denies chest pain with activity, Denies syncope, Denies leg edema, Denies palpitations, Denies dyspnea and Denies dyspnea on exertion Resp Denies cough, Denies dyspnea, Denies dyspnea on exertion and Denies snoring GI Denies abdominal pain, Denies constipation, Denies heartburn, Denies diarrhea and Denies nausea Denies urinary frequency, Denies urinary incontinence and Denies urinary urgency Musc Denies abnormal gait, Reports back pain, Reports myalgias, Reports arthralgias, Reports neck pain, Reports numbness and Reports tingling Neuro Denies abnormal gait, Denies vertigo, Denies dizziness, Denies syncope, Denies frequent falls, Denies headache(s), Denies lack of coordination, Denies loss of vision, Denies memory loss, Reports numbness, Denies Other visual disturbances, Reports restless legs, Denies seizure-like activity, Reports tingling, Denies paresthesias, Denies tremor(s) and Denies weakness Psych Denies anxiety, Denies depression, Denies auditory hallucinations, Denies memory loss and Denies visual hallucinations Endo Denies fatigue and Denies palpitations Physical Exam Const Other: General Appearance:? normal, in no acute distress. Heart:? S1, S2 normal, no murmurs. Lungs:? clear anteriorly and posteriorly. Musculoskeletal:? normal. Extremities:? no edema. Psych:? alert, oriented, cognitive function intact, cooperative with exam. Neuro Other: Abnormal Neurological Findings:?Blunting of pinprick and vibration sensation in both feet distal to the mid tarsal level Mental Status: alert and oriented X 3. Normal attention, orientation, memory, and affect. Cranial Nerves: Pupils are equal, round, and reactive to light. External ocular muscles are intact. Visual haney are full, no ptosis. Face is symmetrical, no facial weakness or droop. Facial sensations are normal. Tongue protrudes in midline. Palate elevates symmetrically. Shoulder shrugging is normal Motor Examination: Normal muscle tone, bulk and strength. No atrophy or fasciculations. No drift of the extended upper extremities. DTR 2+. Plantars are flexor. Straight Leg Raisin degrees. Sensory Exam: As above, otherwise normal light touch, temperature, pinprick, vibration, and joint-position sensations. Rhomberg sign is absent. Coordination: No ataxia. No titubation. Ujaseh-xt-bzdy, rove-rcqh-vrqs test, and rapid alternating movements were normal. Gait Exam: Within normal limits. Cerebellar Signs: Drvrrl-lk-fjjf and lhsr-iz-qqyb is normal. No dysdiadochokinesia. Extrapyramidal System: No tremor, rigidity with normal facial expressions. No bradykinesia. No bradyphrenia. Normal arm swing and posture. No propulsion or retropulsion. Speech: Normal. No dysphasia or dysarthria. Assessment & Plan Assessment & Plan (1) Sensory peripheral neuropathy: Code(s): G60.8 - Other hereditary and idiopathic neuropathies Category: Medical Plan: Increase gabapentin 300mg 2 capsules three times a day. (2) Lumbar disc disease: Code(s): M51.9 - Unspecified thoracic, thoracolumbar and lumbosacral intervertebral disc disorder Category: Medical Plan: . Medications: New gabapentin 600 mg (2 x 300 mg) PO TID 540 caps 1RF 90 days Coding Level of Care Code Est Pt Level 3 (65732) Diagnoses Sensory peripheral neuropathy G60.8 Lumbar disc disease M51.9
== END 2025-01-06 08:50 | disposition home or self-care (01) ==
LOC: HO.HSM 08:12
PROVIDERS: PCP Internal Medicine; Referring Provider Podiatrist; Visit Provider Registered Nurse
DX: G60.8 Other hereditary and idiopathic neuropathies (principal); M51.9 Unspecified thoracic, thoracolumbar and lumbosacral intervertebral disc disorder
CPT/HCPCS: 99213

== ENCOUNTER 2025-01-26 14:06 | Outpatient (REF) | payer OTHER, SELFPAY ==
--- OUTSIDE RECORDS SUMMARY | 2025-01-26 14:15 | XMS_ITS | Patient Health Record ---
[facility] Address [address] [place] [address] Care Team Providers Care Locum Tenens Psychiatrist Name Role Phone Johann Cunningham MD Primary Care Provider Unavaila ble Charlette Desir Unavailable [phone] Allergies Allergen (clinical drug ingredient) Drug/Non Drug [...] Referring Provider Last Name Marisa Referred Organization [facility] Referred Provider Charlette Desir Referred Address [address],[facility] [place],[address],[place] Referred Provider Specialty Podiatry Referral Priority Routine [...] Problem Acquired hammer toe of right foot (8945709494193544 ) Other hammer toe(s) (acquired), right foot (M20.41) Active confirmed Problem Acquired hammer toe of left foot (4438019211493717 ) Other hammer toe(s) (acquired), left foot (M20.42) Active confirmed Problem Neuropathy (866638071) Neuropathy (G62.9) Active confirmed Problem Localized, primary osteoarthritis of the ankle and/or foot (336980733) Osteoarthritis of right ankle and foot (M19.071) Active confirmed Problem Osteoarthritis of midtarsal joint of left foot (4522741780634390 ) Osteoarthritis of midtarsal joint of left foot (M19.072) Active confirmed Vital Signs Blood pressure diastolic 80 mm Hg 09/18/2024 Height 2jl21fa in 09/18/2024 Blood pressure systolic 135 mm Hg 09/18/2024 Weight 195 lbs 09/18/2024 BMI 27.98 kg/m2 09/18/2024 Encounters Encounter Location Date Provider Diagnosis [address] [address] 05/12/2024 Charlette Black Pain in left foot M79.672 ; Neuritis M79.2 ; Pain in left ankle and joints of left foot M25.572 ; Osteoarthritis of midtarsal joint of left foot M19.072 ; Pain in right foot M79.671 ; Pain in right ankle and joints of right foot M25.571 ; Osteoarthritis of midtarsal joint of right foot M19.071 and Neuropathy G62.[address] [address] 06/05/2024 Charlette Black Pain in left foot M79.672 ; Neuritis M79.2 ; Pain in left ankle and joints of left foot M25.572 ; Pain in right foot M79.671 ; Pain in right ankle and joints of right foot M25.571 and Neuropathy G62.[address] [address] 09/18/2024 Charlette Black Pain in left foot M79.672 ; Neuritis M79.2 ; Pain in left ankle and joints of left foot M25.572 ; Pain in right foot M79.671 ; Pain in right ankle and joints of right foot M25.571 ; Neuropathy G62.9 ; Bursitis of right foot M77.51 ; Hypertrophy of bone of foot M89.379 and Osteoarthritis of right ankle and foot M19.071 [facility] [address] [address] 05/12/2024 Charlettevika Desir [facility] [address] [address] 09/18/2024 Charlette Desir Assessments Encounter Date Diagnosis [...] X ray : Foot, right 3V 12/02/2018 68279, J0702- INJECT or DRAIN, JOINT/BUR SA 07/16/2019 Insurance Providers Payer Name Payer Address Payer Phone Subscriber Number Group Number Insured Name Patient Relationship to Insured Coverage Start Date Coverage End Date [facility] Plan [address] [place] [address] [id number] Richard Myers Spouse - patient is the [...]
--- OUTSIDE RECORDS SUMMARY | 2025-01-26 14:15 | XMS_ITS ---
Author Name Simran Kraft Address Unknown Organization [facility] Care Team Providers Care Plate Hanger Name Role Phone Unavailable Primary Care Physician Unavailab le History Of Present Illness This is a 64 year old female who is a new patient who is being seen for a full body skin examination.Pertinent Negatives: no family history of melanoma, no family history of non-melanoma skin cancer,and no previous history of skin cancerBeing Monitored For: concerning skin lesions on an annual basisSkin Lesion Location: body throughoutLesion Quality: asymptomaticLesion Severity: mildModifying Factors: nothing makes them better or worseDuration: yearsAdditional History: Patient presents for a CSE. Patient has wart on left lateral leg, had liquid nitrogen previously, wants this rechecked. Allergies, Adverse Reactions, Alerts Substance RxNorm Reaction(s) Severity Status Start Da te Percocet unspecified active Dilaudid unspecified active Bactrim unspecified active Medications Medication Generic Name RxNorm Strength Strength Unit Route Dose Dose Form Frequency Date Started Date Ended Status Indication Sig Flonase Allergy Relief fluticas one propiona te 50 mcg/actua tion Intran candy 1 spray , suspe nsion QD active Advil ibuprofe n 200 mg Oral 1 table t PRN active biotin biotin 39548 mg Oral 1 table t daily active Fish Oil omega-3 fatty acids-vi tamin E 300-1,000 mg Oral 1 capsu le QD active gabapentin gabapent in 300 mg Oral 2 capsu le 6x QD active Myrbetriq mirabegr on 50 mg Oral 1 Table t, Exten ded Relea se 24 hr QD active omeprazole omeprazo le 20 mg Oral 1 Table t,dis integ ratin g,del ayed relea se QD active pravastatin pravasta tin 20 mg Oral 1 table t QD active solifenacin solifena nicole 5 mg Oral 1 table t QD active Vitamin D3 cholecal ciferol (vitamin D3) 250 mcg 10,000 IU Oral 1 table t QD active vitamin E vitamin E 180 mg/2 mL Oral 1 drops QD active Zyrtec cetirizi ne 10 mg Oral 1 table t QD active cyanocobala min (vitamin B-12) cyanocob alamin (vitamin B-12) 5,000 mcg Sublin gual 1 Table t, Subli ngual QD active estradiol estradio l 0.01 % (0.1 mg/gram) Vagina l 1 cream PRN active Hydrochloro thiazide NULL 0 13 active Problems Problem Code Type Status Date of Diagnosis Date of Resolution Neoplasm of uncertain behavior of skin (disorder) 57834873(S NOMED) Diagnosis active 01/23/2025 Verruca vulgaris (disorder) 31915531(S NOMED) Diagnosis active 01/23/2025 Melanocytic nevus of left lower limb (disorder) 6668011306 69274(SNOM ED) Diagnosis active 01/23/2025 Hypopigmentation of skin (disorder) 72750337(S NOMED) Diagnosis active 01/23/2025 Benign neoplasm of skin of trunk (disorder) 76096695(S NOMED) Diagnosis active 01/23/2025 Benign neoplasm of skin of face (disorder) 63083966(S NOMED) Diagnosis active 01/23/2025 Patient encounter status (finding) 370053502( SNOMED) Diagnosis active 01/23/2025 Neoplasm of uncertain behavior of skin (disorder) 45208367(S NOMED) Diagnosis active 07/29/2014 Allergic rhinitis (disorder) 61576332(S NOMED) Problem active Arthritis (disorder) 8961521(SN OMED) Problem active History of hay fever (situation) 860757995( SNOMED) Problem active Hypercholesterolemia (disorder) 76235618(S NOMED) Problem active Neuropathy (disorder) 287272529( SNOMED) Problem active Actinic (qualifier value) 178131312( SNOMED) Problem active Compound nevus (morphologic abnormality) 42124264(S NOMED) Problem active Junctional nevus (morphologic abnormality) 70183489(S NOMED) Problem active Seborrheic keratosis (disorder) 158366446( SNOMED) Problem active Results No data Encounters Service provided at [address], [address], [place], [place] [id number]. Office phonenumber is [phone]. Office fax number is [phone]. 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) [facility] 01/23/2025 12:45:00 [facility] [id number] Reason For Referral No data Procedures Procedure Date Documentation of current medications (pr ocedure) 01/23/2025 12:00 am [place] Cryotherapy of skin lesion with liquid n itrogen (procedure) 01/23/2025 12:00 am [place] Shave biopsy (procedure) 01/23/2025 12:0 0 am [place] Cholecystectomy (procedure) Hysterectomy (procedure) Total replacement of left knee joint (pr ocedure) Chondrectomy of spine (procedure) Excision of lamina of vertebra (procedur e) Documentation of past medical history (p rocedure) Hysterectomy (procedure) Chondrectomy of spine (procedure) Cholecystectomy (procedure) Excision of lamina of vertebra (procedur e) Documentation of past medica l history (procedure) Hammer toe surgery lamectomy Left arthroscopy surgery 20 years agoHysterectomy partialDiscectomyCholecystecomy Total replacement of left knee joint (pr ocedure) 2022 Review Of Systems Provider reviewed on Jan 23, 2025.A complete review of systems was performed and was notable for problems with bleeding, hay fever, blurry vision, joint aches, and muscle weakness.No Problems With Healing, No Problems With Scarring (hypertrophic Or Keloid), No Immunosuppression, No Chest Pain, No Fever Or Chills, No Night Sweats, No Unintentional Weight Loss, No Thyroid Problems, No Sore Throat, No Abdominal Pain, No Bloody Stool, No Bloody Urine, No Neck Stiffness, No Headaches, No Seizures, No Shortness Of Breath, No Wheezing, No Anxiety, And No Depression. Assessment 1.Neoplasm of Uncertain BehaviorBiopsy by Shave Method: right superior upper back.2.Verruca Vulgaris, Status: Not At Treatment GoalAdditional NotesCounselingLiquid Nitrogen: left proximal pretibial region; Application Tool - Liquid Nitrogen Sprayer; Medical Necessity Justification (varies by insurance carrier and by region) - at risk for and/or subject to recurrent physical trauma as a result of lesion type and location with history of the same, enlarging, and contagious; Duration of freeze thaw-cycle (seconds) - 5-10; Number of freeze- thaw Cycles - 2 freeze-thaw cycles.3.Acral NevusObservation: left dorsal 5th toe; left medial great toe.Photo-Documentation:.MonitoringCounseling4.Idiopathic Guttate HypomelanosisCounseling5.Benign Skin ExamCounselingSunscreen RecommendationsEducational Resources Provided6.Skin EducationCounseling Plan of Care Future visit for 01/23/2026 - Follow up in 1 year for: Skin Check - 15 minutes. Other Instructions:1-2 years CSE. Other Instructions: 1-2 years CSE. Instructions * I counseled the patient regarding the following:Skin Care: Verruca Vulgaris can be treated with retinoids, aldara, salicylic acid preparations or cryotherapy.Expectations: Verruca Vulgaris are cauliflower-like bumps caused by viral infections. They can be spread through direct contact and usually re solve with treatment.Contact Office if: The warts spread, or recur despite treatment.I recommended the following: Topical Salicylic Acid * I counseled the patient regarding the following:Instructions: Monthly self- skin checks to monitor for any changes in moles are recommended.Expectations: Benign Nevi are pigmented nests of cells within the skin. No treatment is necessary.Contact Office if: Any moles change in size, shape or color; itch, burn or bleed.I recommended the following: Broad Spectrum Sunscreen SPF 30+Self-Skin Exams * I counseled the patient regarding the following:Skin care: New lesions can be prevented by minimizing sun exposure, wearing sunscreen and protective clothing.Expectations: Idiopathic Guttate Hypomelanosis are white spots caused from sun damage.Contact office if: white spots become larger, or spreadto other parts of the body.I recommended the following: Broad Spectrum Sunscreen SPF 30+ * I counseled the patient regarding the following:Sun screen (SPF 30 or greater) should be applied during peak UV exposure (between 10am and 2pm) and reapplied after exercise or swimming.I recommended the following: Broad Spectrum Sunscreen SPF 30+Self-Skin Exams * I counseled the patient regarding the following:Sun screen (SPF 30 or greater) should be applied during peak UV exposure (between 10am and 2pm) and reapplied after exercise or swimming.I recommended the following: Broad Spectrum Sunscreen SPF 30+Self-Skin Exams Social History Code Activity Start Date End Date [id number] (SNOMED) 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
== END 2025-01-26 14:07 | disposition home or self-care (01) ==
LOC: HO.MAMMO 14:06
PROVIDERS: PCP Internal Medicine; Visit Provider Internal Medicine
DX: Z12.31 Encounter for screening mammogram for malignant neoplasm of breast (principal)
CPT/HCPCS: 77063; 77067

== ENCOUNTER → 2025-01-26 14:30 | Outpatient (BNV) | payer OTHER, SELFPAY | PROVIDERS: PCP Internal Medicine; Visit Provider Internal Medicine | DX: Z12.31 Encounter for screening mammogram for malignant neoplasm of breast (principal) | CPT/HCPCS: 77063; 77067 ==

== ENCOUNTER 2025-02-19 11:31 | Outpatient (REF) | payer OTHER, SELFPAY | END 2025-02-19 11:32 | disposition home or self-care (01) | LOC: HO.LNP 11:31 | PROVIDERS: PCP Internal Medicine; Visit Provider Obstetrics & Gynecology | DX: Z01.419 Encounter for gynecological examination (general) (routine) without abnormal findings (principal); R31.29 Other microscopic hematuria; R10.2 Pelvic and perineal pain | CPT/HCPCS: 81002; 87086; 99212 ==

== ENCOUNTER 2025-02-19 11:31 | Outpatient (AMB) | payer OTHER, SELFPAY ==
--- OUTSIDE RECORDS SUMMARY | 2024-09-08 06:00 | XMS_ITS ---
Author Organization [facility] Address [address] [place] [address] Care Team Providers Care Hemstitcher Name Role Phone Marsia NEVAREZ, Johann Primary Care Provider UnavailCharlette Velazquez [phone] Tamez Encounters Encounter Location Date Provider Diagnosis [address] [address] 09/08/2024 Charlette Desir Plan Of Treatment No Information Progress Notes * Gabriela DREW ADOB:1959 (64 yo F)Acc No.[id number]:09/08/2024 Progress Note Patient: Gabriela PURI Provider: Xiomy Desir DPM :1960 A ge:64 Y S ex:Female Date:09/08/2024 Address:[address] [place], [place] [address] Pcp:Johann Cunningham MD Subjective: * Chief Complaints: [...] DPM Date: 0 09/08/2024 Generated for Printi ng/Fayolandag/eTransmitting on: 0 02/19/2025 12:48 PM EDT
--- OUTSIDE RECORDS SUMMARY | 2024-09-25 07:30 | XMS_ITS ---
Author Organization [facility] Address [address] [place] [address] Care Team Providers Care Cigar Binder Name Role Phone Marisa NEVAREZ, Johann Primary Care Provider UnavailCharlette Velazquez [phone] Tamez Encounters Encounter Location Date Provider Diagnosis [address] [address] 09/25/2024 Charlette Desir Plan Of Treatment No Information Progress Notes * Gabriela DREW ADOB:1959 (64 yo F)Acc No.[id number]:09/25/2024 Progress Note Patient: Gabriela PURI Provider: Xiomy Desir DPM :1960 A ge:64 Y S ex:Female Date:09/25/2024 Address:[address] [place], [place] [address] Pcp:Johann Cunningham MD Subjective: * Chief Complaints: [...] DPM Date: 0 09/25/2024 Generated for Printi ng/Faalec/eTransmitting on: 0 02/19/2025 12:48 PM EDT
--- NOTE | 2025-02-19 12:02 | MHC.OFFVIS ---
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 The patient had an episode of right-sided pelvic pain with no associated urinary or GI symptoms, the pain has resolved Last Pap/HPV in 2011, the patient is status post hysterectomy with no history of abnormal Pap smear Last Mammogram was in 02/16 [facility] 1 Last Colonoscopy was in 02[facility] Medical History Sensory peripheral neuropathy Sensory neuropathy Lumbar disc disease Hammer toe Osteoarthritis, generalized Chronic pain syndrome Spinal stenosis of lumbar region Surgical History H/O colonoscopy (~02/06/24) Hx laparoscopic cholecystectomy Total knee replacement status H/O toe surgery H/O laminectomy S/P discectomy for herniated nucleus pulposus H/O: hysterectomy H/O knee surgery Family History Father Heart disease Stroke Maternal Grandfather Stroke Paternal Uncle Cancer Father No problems noted. Social History Household Members: Spouse Housing: House Alcohol intake: current Alcohol intake frequency: holidays/special occasions only Comment: counts correct Patient Tobacco Use Status: Current someday Tobacco user Tobacco use type: Cigarette Cigarettes Per Day: 3 Years Smoked: stopped few months ago e-Cigarette/Vaping Use: Currently Using service: No Current occupational status: employed and retired Current occupation: [employer] Current occupational exposures/hazards: No Sexual orientation: Straight/Heterosexual Gender identity: Female Cognitive needs: No Hearing needs: No Vision needs: Yes (rx glasses) Female Reproductive History Menstrual Menopause type: surgical Date of Mammogram: 01/26/25 Review of Systems Const All systems reviewed & are unremarkable except as noted in HPI and below Card Reports as per HPI and Reports no additional complaints Resp Reports as per HPI and Reports no additional complaints GI Reports as per HPI and Reports no additional complaints Reports as per HPI Physical Exam Const General: cooperative, healthy appearing and comfortable General: Yes bladder normal to palpation External Female Exam: No lesion Speculum Exam - Vagina: normal appearance of the vagina, normal vaginal discharge and not erythematous Speculum Exam - Cervix: Cervix absent Bimanual exam- vagina & uterus: bladder normal to palpation and uterus absent Bimanual Exam- Adnexa, other: Other (No masses detected) Assessment & Plan Assessment & Plan (1) Well woman exam: Code(s): Z01.419 - Encounter for gynecological examination (general) (routine) without abnormal findings Category: Medical Plan: Co testing not indicated. Counseled the patient about the recommended dietary allowance of 1200 mg of Calcium & 600 IU of vitamin D. Instructions given to the patient to schedule next screening Mammogram in 02/17. The patient was instructed to perform monthly self-breast exams and schedule annual exam in a year. All questions answered and the patient verbalized understanding. (2) Pelvic pain: Code(s): R10.2 - Pelvic and perineal pain Category: Medical Plan: Urine dip done in the office showed microscopic hematuria. Pelvic ultrasound ordered. Instructions given the patient to schedule an ultrasound follow-up appointment within 2 weeks. (3) Microscopic hematuria: Code(s): R31.29 - Other microscopic hematuria Category: Medical Plan: Urine dip showed microscopic hematuria, urine culture sent. Will repeat urine dip in 2 weeks. Discussed with the patient the possible causes of microscopic hematuria including but not limited to: interstitial cystitis, polyps, stones, masses, urethral inflammatory processes and others. If Urine Culture is negative and repeat urine dip in 2 weeks shows persistent microscopic hematuria, will proceed with CT abdomen/pelvis and urology referral. Instructions given the patient to schedule a 2 week urine dip follow-up appointment. All questions answered and the patient verbalized understanding. Orders: Orders US pelvic and transvaginal Today R10.2 - Pelvic and perineal pain Coding Level of Care Code Est Pt Level 3 (90443) Est Pt Prev Care 40-64y(42823) Diagnoses Well woman exam Z01.419 Pelvic pain R10.2 Microscopic hematuria R31.29
[2025-02-19 12:05] VITALS: BP 130/70; BMI 27.7
--- OUTSIDE RECORDS SUMMARY | 2025-02-19 12:48 | XMS_ITS | Patient Health Record ---
[facility] Address [address] [place] [address] Care Team Providers Care Home Specialist Name Role Phone Johann Cunningham MD Primary Care Provider Unavaila ble Charlette Desir Unavailable [phone] Allergies Allergen (clinical drug ingredient) Drug/Non Drug [...] Referring Provider Last Name Marisa Referred Organization [facility] Referred Provider Charlette Desir Referred Address [address],[facility] [place],[address],[place] Referred Provider Specialty Podiatry Referral Priority Routine [...] Problem Acquired hammer toe of right foot (7000512552218323 ) Other hammer toe(s) (acquired), right foot (M20.41) Active confirmed Problem Acquired hammer toe of left foot (7104394658334170 ) Other hammer toe(s) (acquired), left foot (M20.42) Active confirmed Problem Neuropathy (424043758) Neuropathy (G62.9) Active confirmed Problem Osteoarthritis o f right ankle and foot (M19.071) Active confirmed Problem Osteoarthritis of midtarsal joint of left foot (4472189487253618 ) Osteoarthritis of midtarsal joint of left foot (M19.072) Active confirmed Vital Signs Blood pressure diastolic 80 mm Hg 09/18/2024 Height 5ui69og in 09/18/2024 Blood pressure systolic 135 mm Hg 09/18/2024 Weight 195 lbs 09/18/2024 BMI 27.98 kg/m2 09/18/2024 Encounters Encounter Location Date Provider Diagnosis [address] [address] 05/12/2024 Charlette Black Pain in left foot M79.672 ; Neuritis M79.2 ; Pain in left ankle and joints of left foot M25.572 ; Osteoarthritis of midtarsal joint of left foot M19.072 ; Pain in right foot M79.671 ; Pain in right ankle and joints of right foot M25.571 ; Osteoarthritis of midtarsal joint of right foot M19.071 and Neuropathy G62.[address] [address] 06/05/2024 Charlette Black Pain in left foot M79.672 ; Neuritis M79.2 ; Pain in left ankle and joints of left foot M25.572 ; Pain in right foot M79.671 ; Pain in right ankle and joints of right foot M25.571 and Neuropathy G62.[address] [address] 09/18/2024 Charlette Black Pain in left foot M79.672 ; Neuritis M79.2 ; Pain in left ankle and joints of left foot M25.572 ; Pain in right foot M79.671 ; Pain in right ankle and joints of right foot M25.571 ; Neuropathy G62.9 ; Bursitis of right foot M77.51 ; Hypertrophy of bone of foot M89.379 and Osteoarthritis of right ankle and foot M19.[address] [address] 05/12/2024 Charlette Desir [facility] [place] [address] [place] [address] 09/18/2024 Charlette Desir Assessments Encounter Date Diagnosis [...] X ray : Foot, right 3V 12/02/2018 42399, J0702- INJECT or DRAIN, JOINT/BUR SA 07/16/2019 Insurance Providers Payer Name Payer Address Payer Phone Subscriber Number Group Number Insured Name Patient Relationship to Insured Coverage Start Date Coverage End Date [facility] [address] [place] [address] [id number] Richard Myers Spouse - patient is the [...]
== END 2025-02-19 12:49 | disposition home or self-care (01) ==
LOC: HO.HWS 11:31
PROVIDERS: PCP Internal Medicine; Visit Provider Obstetrics & Gynecology
DX: Z01.419 Encounter for gynecological examination (general) (routine) without abnormal findings (principal); R10.2 Pelvic and perineal pain; R31.29 Other microscopic hematuria
CPT/HCPCS: 99213; 99459

== ENCOUNTER 2025-03-02 12:56 | Outpatient (AMB) | payer OTHER, SELFPAY ==
--- OUTSIDE RECORDS SUMMARY | 2024-09-08 06:00 | XMS_ITS ---
Author Organization [facility] Address [address] [place] [address] Care Team Providers Care Mixer Blender Name Role Phone Marisa NEVAREZ, Johann Primary Care Provider UnavailCharlette Velazquez [phone] Tamez Encounters Encounter Location Date Provider Diagnosis [address] [address] 09/08/2024 Charlette Desir Plan Of Treatment No Information Progress Notes * Gabriela DREW ADOB:1959 (64 yo F)Acc No.[id number]:09/08/2024 Progress Note Patient: Gabriela PURI Provider: Xiomy Desir DPM :1960 A ge:64 Y S ex:Female Date:09/08/2024 Address:[address] [place], [place] [id number] Pcp:Johann Cunningham MD Subjective: * Chief Complaints: [...] DPM Date: 0 09/08/2024 Generated for Printi ng/Faalec/eTransmitting on: 0 03/02/2025 03:05 PM EDT
--- OUTSIDE RECORDS SUMMARY | 2024-09-25 07:30 | XMS_ITS ---
Author Organization [facility] Address [address] [place] [address] Care Team Providers Care Interior Design Program Chair Name Role Phone Marisa NEVAREZ, Johann Primary Care Provider UnavailCharlette Velazquez [phone] Tamez Encounters Encounter Location Date Provider Diagnosis [address] [address] 09/25/2024 Charlette Desir Plan Of Treatment No Information Progress Notes * Gabriela DREW ADOB:1959 (64 yo F)Acc No.[id number]:09/25/2024 Progress Note Patient: Gabriela PURI Provider: Xiomy Desir DPM :1960 A ge:64 Y S ex:Female Date:09/25/2024 Address:[address] [place], [place] [id number] Pcp:Johann Cunningham MD Subjective: * Chief Complaints: [...] DPM Date: 0 09/25/2024 Generated for Printi henry/Faalec/eTransmitting on: 0 03/02/2025 03:05 PM EDT
--- NOTE | 2025-03-02 12:58 | A.OFFPC_ITS ---
Vital Signs 03/02/25 13:01 03/02/25 13:24 Height 5 ft 10 in Weight 87.997 kg BMI 27.8 BP 160/60 H 136/82 Blood Pressure Location Lt brachial Position Sitting Respiration 18 Pulse 76 Pulse Source Pulse Oximeter Temp 98.6 F Temp Source Temporal Artery Scan Pulse Oximetry (%) 98 Oxygen Delivery Method Room Air Intake Visit Reasons: left knee pain Long Chain Beamer Required: No Accompanied by: Self / Same As Patient Allergies Sulfa (Sulfonamide Antibiotics) Allergy (Intermediate, Verified 03/02/25 12:58) diarrhea sulfamethoxazole (From BACTRIM) Allergy (Intermediate, Verified 03/02/25 12:58) N/V trimethoprim (From BACTRIM) Allergy (Intermediate, Verified 03/02/25 12:58) N/V oxycodone (Percocet) Adverse Reaction (Intermediate, Verified 03/02/25 12:58) stomach upset Tobacco use date assessed: 11/13/24 Dental Screening Dental Screen Date: 11/13/24 HPI HPI Comments History of Present Illness Details This is a 64-year-old female with past medical history of OA, pelvic floor weakness, cystocele, OAB presenting for follow up MSK: Has seen orthopedics. History of R knee replacement, history of lumbar laminectomy. Now having issues with severe osteoarthritis in the left knee. Has been following with [facility] but due to insurance change needs a new referral. She is hoping to put off a knee replacement and is interested in cortisone injections. Follows with urology. She is on Myrbetriq 50 mg daily. Vaginal cystocele is managed with pessary. Dr Jauregui. Uses pessary. Has recurrent wark v AK on the left arroyo, sun freckled skin. 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 Drinks plenty of water. Took senna without relief Right lower quadrant pain-also had microscopic hematuria on UA. Has upcoming ultrasound to further evaluate right lower quadrant and pelvic pain ordered by machine clerical verifier. Health maintenance: Mammo 12/2023 Colonoscopy 01/2024-5 year Follows with machine clerical verifier Dr Raya ROS See HPI PHYSICAL EXAM: GENERAL: Alert and oriented x 3. NAD EYES: EOMI. Anicteric. HENT: Moist mucous membranes. No scleral icterus. No cervical lymphadenopathy. LUNGS: Clear to auscultation bilaterally. CARDIOVASCULAR: Regular rate and rhythm. No murmur. No JVD. ABDOMEN: Soft, non-tender +bs EXTREMITIES: No edema. Non-tender. SKIN: No rashes or lesions. Warm. NEUROLOGIC: No focal neurological deficits. CN II-XII grossly intact PSYCHIATRIC: Cooperative. Appropriate mood and affect [facility] Medical History (Updated 03/02/25 @ 13:33 by YNES Cohen) Squamous cell carcinoma of back HLD (hyperlipidemia) Sensory peripheral neuropathy Sensory neuropathy Lumbar disc disease Hammer toe Osteoarthritis, generalized Chronic pain syndrome Spinal stenosis of lumbar region Surgical History H/O colonoscopy (~02/06/24) Hx laparoscopic cholecystectomy Total knee replacement status H/O toe surgery H/O laminectomy S/P discectomy for herniated nucleus pulposus H/O: hysterectomy H/O knee surgery Family History Father Heart disease Stroke Maternal Grandfather Stroke Paternal Uncle Cancer Father No problems noted. 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 Charles Kim, Katie Wolfe, Vinod Sweeney and colleagues, with an educational kathi from [employer]. Physical exam (Primary Care) Vital Signs: Last Vital Signs Temp 98.6 F 03/02/25 13:01 Pulse 76 03/02/25 13:01 Resp 18 03/02/25 13:01 BP 160/60 H 03/02/25 13:01 Pulse Ox 98 03/02/25 13:01 Oxygen Delivery Method Room Air 03/02/25 13:01 BMI result Body Mass Index 27.8 Tobacco/Smoking Status: Tobacco use Status Tobacco use date assessed 11/13/24 03/02/25 13:02 Patient Tobacco Use Status Current someday Tobacco 03/02/25 13:02 Tobacco use type Cigarette 03/02/25 13:02 e-Cigarette/Vaping Use Currently Using 03/02/25 13:02 Thrive Assessment: Date of Thrive Assessment Date Thrive assessed 11/13/24 03/02/25 13:02 Coding Level of Care Code Est Pt Level 4 (14173) Complex EM visit Add On G2211 Diagnoses Primary osteoarthritis of both knees M17.0 Osteoarthritis type: primary HLD (hyperlipidemia) E78.5 Osteopenia, unspecified location M85.80 Osteopenia location: unspecified Urine incontinence R32 Pelvic pain R10.2 Sensory peripheral neuropathy G60.8 Squamous cell carcinoma of back C44.529 Assessment & Plan Assessment & Plan (1) Osteoarthritis of knees, bilateral: Code(s): M17.0 - Bilateral primary osteoarthritis of knee Category: Medical Qualifiers: Osteoarthritis type: primary Qualified Code(s): M17.0 - Bilateral primary osteoarthritis of knee Plan: Referral printed for patient to present to Orthopedic Clinic. (2) HLD (hyperlipidemia): Code(s): E78.5 - Hyperlipidemia, unspecified Category: Medical Plan: Recently started on statin. Lipid panel and liver panel to be evaluated. Continue statin as ordered (3) Osteopenia: Code(s): M85.80 - Other specified disorders of bone density and structure, unspecified site Category: Medical Qualifiers: Osteopenia location: unspecified Qualified Code(s): M85.80 - Other specified disorders of bone density and structure, unspecified site Plan: Calcium and vitamin-D. Weightbearing exercise (4) Urine incontinence: Code(s): R32 - Unspecified urinary incontinence Category: Medical Plan: Continue following with Urology. Continue VESIcare, Myrbetriq, estradiol. Continue use of pessary (5) Pelvic pain: Code(s): R10.2 - Pelvic and perineal pain Category: Medical Plan: Will follow ultrasound results, plan to be determined pending results (6) Sensory peripheral neuropathy: Code(s): G60.8 - Other hereditary and idiopathic neuropathies Category: Medical Plan: Continue following with Neurology. Gabapentin as ordered (7) Squamous cell carcinoma of back: Code(s): C44.529 - Squamous cell carcinoma of skin of other part of trunk Category: Medical Plan: We will continue following. Follow-up with [facility] for further procedure as scheduled Plan Follow-up in the office for annual physical exam in 6 months Orders: Orders Liver Panel Today E78.5 - Hyperlipidemia, unspecified Lipid Panel Today E78.5 - Hyperlipidemia, unspecified
[2025-03-02 13:01] VITALS: BP 160/60; PULSE 76; RESP 18; TEMP 37; O2SAT 98; BMI 27.8
[2025-03-02 13:24] VITALS: BP 136/82
--- OUTSIDE RECORDS SUMMARY | 2025-03-02 15:05 | XMS_ITS | Patient Health Record ---
Author Organization [facility] Address [address] [place] [address] Care Team Providers Care Packing Room Worker Name Role Phone Johann Cunningham MD Primary Care Provider Unavaila Charlette Ugalde Unavailable [phone] Allergies Allergen (clinical drug ingredient) Drug/Non Drug [...] Referring Provider Last Name Marisa Referred Organization [facility] Referred Provider Charlette Desir Referred Address [address],[facility] [place],[address],[place] Referred Provider Specialty Podiatry Referral Priority Routine [...] Problem Acquired hammer toe of right foot ([id number] ) Other hammer toe(s) (acquired), right foot (M20.41) Active confirmed Problem Acquired hammer toe of left foot (1882944765936032 ) Other hammer toe(s) (acquired), left foot (M20.42) Active confirmed Problem Neuropathy (149117596) Neuropathy (G62.9) Active confirmed Problem Localized, primary osteoarthritis of the ankle and/or foot (734049108) Osteoarthritis of right ankle and foot (M19.071) Active confirmed Problem Osteoarthritis of midtarsal joint of left foot (4387787336386943 ) Osteoarthritis of midtarsal joint of left foot (M19.072) Active confirmed Vital Signs Blood pressure diastolic 80 mm Hg 09/18/2024 Height 1zr89tu in 09/18/2024 Blood pressure systolic 135 mm Hg 09/18/2024 Weight 195 lbs 09/18/2024 BMI 27.98 kg/m2 09/18/2024 Encounters Encounter Location Date Provider Diagnosis [address] [address] 05/12/2024 Charlette Black Pain in left foot M79.672 ; Neuritis M79.2 ; Pain in left ankle and joints of left foot M25.572 ; Osteoarthritis of midtarsal joint of left foot M19.072 ; Pain in right foot M79.671 ; Pain in right ankle and joints of right foot M25.571 ; Osteoarthritis of midtarsal joint of right foot M19.071 and Neuropathy G62.[address] [address] 06/05/2024 Charlette Black Pain in left foot M79.672 ; Neuritis M79.2 ; Pain in left ankle and joints of left foot M25.572 ; Pain in right foot M79.671 ; Pain in right ankle and joints of right foot M25.571 and Neuropathy G62.[address] [address] 09/18/2024 Charlette Black Pain in left foot M79.672 ; Neuritis M79.2 ; Pain in left ankle and joints of left foot M25.572 ; Pain in right foot M79.671 ; Pain in right ankle and joints of right foot M25.571 ; Neuropathy G62.9 ; Bursitis of right foot M77.51 ; Hypertrophy of bone of foot M89.379 and Osteoarthritis of right ankle and foot M19.071 [facility] [address] [address] 05/12/2024 Charlettevika Desir [facility] [address] [address] 09/18/2024 Charlette Desir Assessments Encounter Date Diagnosis [...] X ray : Foot, right 3V 12/02/2018 46583, J0702- INJECT or DRAIN, JOINT/BUR SA 07/16/2019 Insurance Providers Payer Name Payer Address Payer Phone Subscriber Number Group Number Insured Name Patient Relationship to Insured Coverage Start Date Coverage End Date [facility] Plan [address] [place] [address] [id number] Richard Myers Spouse - patient is the [...]
== END 2025-03-02 13:33 | disposition home or self-care (01) ==
LOC: HO.HMCHD 12:57
PROVIDERS: PCP Internal Medicine; Visit Provider Physician Assistant
DX: M17.0 Bilateral primary osteoarthritis of knee (principal); E78.5 Hyperlipidemia, unspecified; M85.80 Other specified disorders of bone density and structure, unspecified site; R32 Unspecified urinary incontinence; R10.2 Pelvic and perineal pain; G60.8 Other hereditary and idiopathic neuropathies; C44.529 Squamous cell carcinoma of skin of other part of trunk

== ENCOUNTER → 2025-03-02 12:56 | Outpatient (BNVA) | payer OTHER, SELFPAY | PROVIDERS: PCP Internal Medicine; Visit Provider Physician Assistant | DX: M17.0 Bilateral primary osteoarthritis of knee (principal); E78.5 Hyperlipidemia, unspecified; M85.80 Other specified disorders of bone density and structure, unspecified site; R32 Unspecified urinary incontinence; R10.2 Pelvic and perineal pain; G60.8 Other hereditary and idiopathic neuropathies; C44.529 Squamous cell carcinoma of skin of other part of trunk; Z79.899 Other long term (current) drug therapy | CPT/HCPCS: 99212 ==

== ENCOUNTER 2025-03-05 15:05 | Outpatient (REF) | payer OTHER, SELFPAY ==
--- OUTSIDE RECORDS SUMMARY | 2024-09-08 06:00 | XMS_ITS ---
Author Organization [facility] Address [address] [place] [address] Care Team Providers Care Celery Wrapper Name Role Phone Marisa NEVAREZ, Johann Primary Care Provider UnavailCharlette Velazquez [phone] Tamez Encounters Encounter Location Date Provider Diagnosis [address] [address] 09/08/2024 Charlette Desir Plan Of Treatment No Information Progress Notes * Gabriela DREW ADOB:1959 (64 yo F)Acc No.[id number]:09/08/2024 Progress Note Patient: Gabriela PURI Provider: Xiomy Desir DPM :1960 A ge:64 Y S ex:Female Date:09/08/2024 Address:[address] [place], [place] [id number] Pcp:Johann Cunningham MD Subjective: * Chief Complaints: [...] 09/08/2024 Generated for Printi ng/Faalec/eTransmitting on: 0 03/05/2025 06:29 PM EDT
--- OUTSIDE RECORDS SUMMARY | 2024-09-25 07:30 | XMS_ITS ---
Author Organization [facility] Address [address] [place] [phone] Care Team Providers Care Business Support Professional Name Role Phone Marisa NEVAREZ, Johann Primary Care Provider UnavailCharlette Velazquez [phone] Tamez Encounters Encounter Location Date Provider Diagnosis [address] [address] 09/25/2024 Charlette Desir Plan Of Treatment No Information Progress Notes * Gabriela DREW ADOB:1959 (64 yo F)Acc No.[id number]:09/25/2024 Progress Note Patient: Gabriela PURI Provider: Xiomy Desir DPM :1960 A ge:64 Y S ex:Female Date:09/25/2024 Address:[address] [place], [place] [id number] Pcp:Johann Cunningham MD Subjective: * Chief Complaints: [...] 09/25/2024 Generated for Printi henry/Faalec/eTransmitting on: 0 03/05/2025 06:29 PM EDT
--- NOTE | ~2025-03-05 | US_ITS ---
EXAMINATION: US PELVIS TRANSABDOMINAL AND TRANSVAGINAL HISTORY: R10.2 - Pelvic and perineal pain COMPARISON: Correlation is made with a CT of the pelvis without contrast dated 10/21/2023. TECHNIQUE: Transabdominal and endovaginal real-time 2D de-scale ultrasound was performed. FINDINGS: Uterus: The uterus is surgically absent. Right ovary: The right ovary measures 2.2 x 1.5 x 1.5 cm. The right ovary is normal in size and echotexture. Left ovary: The left ovary is not identified. Pelvic fluid: none. US/US pelvic and transvaginal IMPRESSION: Status post hysterectomy. The left ovary is not identified. The right ovary is unremarkable in appearance. Electronically signed by: Charles Hidalgo MD 03/05/2025 03:52 PM EDT
--- OUTSIDE RECORDS SUMMARY | 2025-03-05 18:29 | XMS_ITS | Patient Health Record ---
[facility] Address [address] [place] [address] Care Team Providers Care Supervisor Matrix Name Role Phone Johann Cunningham MD Primary Care Provider Unavaila ble Charlette Desir Unavailable [phone] Allergies Allergen (clinical drug ingredient) Drug/Non Drug [...] Referring Provider Last Name Marisa Referred Organization [facility] Referred Provider Charlette Desir Referred Address [address],[facility] [place],[address],[place] Referred Provider Specialty Podiatry Referral Priority Routine [...] Problem Acquired hammer toe of right foot ([id number] ) Other hammer toe(s) (acquired), right foot (M20.41) Active confirmed Problem Acquired hammer toe of left foot (3181354520389735 ) Other hammer toe(s) (acquired), left foot (M20.42) Active confirmed Problem Neuropathy (259489092) Neuropathy (G62.9) Active confirmed Problem Localized, primary osteoarthritis of the ankle and/or foot (964454532) Osteoarthritis of right ankle and foot (M19.071) Active confirmed Problem Osteoarthritis of midtarsal joint of left foot (9181040483852052 ) Osteoarthritis of midtarsal joint of left foot (M19.072) Active confirmed Vital Signs Blood pressure diastolic 80 mm Hg 09/18/2024 Height 7nr21gb in 09/18/2024 Blood pressure systolic 135 mm Hg 09/18/2024 Weight 195 lbs 09/18/2024 BMI 27.98 kg/m2 09/18/2024 Encounters Encounter Location Date Provider Diagnosis [address] [address] 05/12/2024 Charlette Black Pain in left foot M79.672 ; Neuritis M79.2 ; Pain in left ankle and joints of left foot M25.572 ; Osteoarthritis of midtarsal joint of left foot M19.072 ; Pain in right foot M79.671 ; Pain in right ankle and joints of right foot M25.571 ; Osteoarthritis of midtarsal joint of right foot M19.071 and Neuropathy G62.[address] [address] 06/05/2024 Charlette Black Pain in left foot M79.672 ; Neuritis M79.2 ; Pain in left ankle and joints of left foot M25.572 ; Pain in right foot M79.671 ; Pain in right ankle and joints of right foot M25.571 and Neuropathy G62.[address] [address] 09/18/2024 Charlette Black Pain in left foot M79.672 ; Neuritis M79.2 ; Pain in left ankle and joints of left foot M25.572 ; Pain in right foot M79.671 ; Pain in right ankle and joints of right foot M25.571 ; Neuropathy G62.9 ; Bursitis of right foot M77.51 ; Hypertrophy of bone of foot M89.379 and Osteoarthritis of right ankle and foot M19.071 [facility] [address] [address] 05/12/2024 Charlettevika Desir [facility] [address] [address] 09/18/2024 Charlette Desir Assessments Encounter Date Diagnosis [...] X ray : Foot, right 3V 12/02/2018 32784, J0702- INJECT or DRAIN, JOINT/BUR SA 07/16/2019 Insurance Providers Payer Name Payer Address Payer Phone Subscriber Number Group Number Insured Name Patient Relationship to Insured Coverage Start Date Coverage End Date [facility] Plan [address] [place] [address] [id number] Richard Myers Spouse - patient is the [...]
== END 2025-03-05 15:06 | disposition home or self-care (01) ==
LOC: HO.US 15:05
PROVIDERS: PCP Internal Medicine; Visit Provider Obstetrics & Gynecology
DX: R10.2 Pelvic and perineal pain (principal)
CPT/HCPCS: 76830; 76856

== ENCOUNTER → 2025-03-05 15:06 | Outpatient (BNV) | payer OTHER, SELFPAY | PROVIDERS: PCP Internal Medicine; Visit Provider Radiology Diagnostic Radiology | DX: R10.2 Pelvic and perineal pain (principal) | CPT/HCPCS: 76830; 76856 ==

== ENCOUNTER 2025-03-16 06:02 | Outpatient (REF) | payer OTHER, SELFPAY ==
--- OUTSIDE RECORDS SUMMARY | 2024-09-08 06:00 | XMS_ITS ---
Author Organization [facility] Address [address] [place] [address] Care Team Providers Care Brim Ironer Hand Name Role Phone Marisa NEVAREZ, Johann Primary Care Provider UnavailCharlette Velazquez [phone] Tamez Encounters Encounter Location Date Provider Diagnosis [address] [address] 09/08/2024 Charlette Desir Plan Of Treatment No Information Progress Notes * Gabriela DREW ADOB:1959 (65 yo F)Acc No.[id number]:09/08/2024 Progress Note Patient: Gabriela PURI Provider: Xiomy Desir DPM :1960 A ge:64 Y S ex:Female Date:09/08/2024 Address:[address] [place] [address] [place], [place] [id number] Pcp:Johann Cunningham MD Subjective: * Chief Complaints: [...] DPM Date: 0 09/08/2024 Generated for Printi henry/Faalec/eTransmitting on: 0 03/16/2025 06:05 AM EDT
--- OUTSIDE RECORDS SUMMARY | 2024-09-25 07:30 | XMS_ITS ---
Author Organization [facility] Address [address] [place] [address] Care Team Providers Care Inventory Associate Name Role Phone Marisa NEVAREZ, Johann Primary Care Provider UnavailCharlette Velazquez [phone] Tamez Encounters Encounter Location Date Provider Diagnosis [address] [address] 09/25/2024 Charlette Desir Plan Of Treatment No Information Progress Notes * Gabriela DREW ADOB:1959 (65 yo F)Acc No.[id number]:09/25/2024 Progress Note Patient: Gabriela PURI Provider: Xiomy Desir DPM :1960 A ge:64 Y S ex:Female Date:09/25/2024 Address:[address] [place], [place] [phone] Pcp:Johann Cunningham MD Subjective: * Chief Complaints: [...] 0 09/25/2024 Generated for Printi henry/Villa/eTransmitting on: 0 03/16/2025 06:05 AM EDT
--- OUTSIDE RECORDS SUMMARY | 2025-03-16 06:05 | XMS_ITS | Patient Health Record ---
Author Organization [facility] Address [address] [place] [address] Care Team Providers Care Supervisor Receiving And Processing Name Role Phone Johann Cunningham MD Primary Care Provider Unavaila ble Charlette Desir Unavailable [phone] Allergies Allergen (clinical drug ingredient) Drug/Non Drug [...] Referring Provider Last Name Marisa Referred Organization [facility] Referred Provider Charlette Desir Referred Address [address],[facility] [place],[address],[place] Referred Provider Specialty Podiatry Referral Priority Routine [...] Problem Acquired hammer toe of right foot (6140861038476108 ) Other hammer toe(s) (acquired), right foot (M20.41) Active confirmed Problem Acquired hammer toe of left foot (8782598790827893 ) Other hammer toe(s) (acquired), left foot (M20.42) Active confirmed Problem Neuropathy (844309072) Neuropathy (G62.9) Active confirmed Problem Localized, primary osteoarthritis of the ankle and/or foot (016968572) Osteoarthritis of right ankle and foot (M19.071) Active confirmed Problem Osteoarthritis of midtarsal joint of left foot (3406709509557403 ) Osteoarthritis of midtarsal joint of left foot (M19.072) Active confirmed Vital Signs Blood pressure diastolic 80 mm Hg 09/18/2024 Height 1nx72ir in 09/18/2024 Blood pressure systolic 135 mm Hg 09/18/2024 Weight 195 lbs 09/18/2024 BMI 27.98 kg/m2 09/18/2024 Encounters Encounter Location Date Provider Diagnosis [address] [address] 05/12/2024 Charlette Black Pain in left foot M79.672 ; Neuritis M79.2 ; Pain in left ankle and joints of left foot M25.572 ; Osteoarthritis of midtarsal joint of left foot M19.072 ; Pain in right foot M79.671 ; Pain in right ankle and joints of right foot M25.571 ; Osteoarthritis of midtarsal joint of right foot M19.071 and Neuropathy G62.[address] [address] 06/05/2024 Charlette Black Pain in left foot M79.672 ; Neuritis M79.2 ; Pain in left ankle and joints of left foot M25.572 ; Pain in right foot M79.671 ; Pain in right ankle and joints of right foot M25.571 and Neuropathy G62.[address] [address] 09/18/2024 Charlette Black Pain in left foot M79.672 ; Neuritis M79.2 ; Pain in left ankle and joints of left foot M25.572 ; Pain in right foot M79.671 ; Pain in right ankle and joints of right foot M25.571 ; Neuropathy G62.9 ; Bursitis of right foot M77.51 ; Hypertrophy of bone of foot M89.379 and Osteoarthritis of right ankle and foot M19.071 [facility] [address] [address] 05/12/2024 Charlettevika Desir [facility] [address] [address] 09/18/2024 Charlette Desir Assessments Encounter Date Diagnosis [...] X ray : Foot, right 3V 12/02/2018 44959, J0702- INJECT or DRAIN, JOINT/BUR SA 07/16/2019 Insurance Providers Payer Name Payer Address Payer Phone Subscriber Number Group Number Insured Name Patient Relationship to Insured Coverage Start Date Coverage End Date [facility] Plan [address] [place] [address] [id number] Richard Myers Spouse - patient is the [...]
[2025-03-16 08:11] LABS: Alanine Aminotransferase 14 U/L (0-31); Albumin Level 4.3 g/dL (3.5-5.0); Alkaline Phosphatase 71 U/L (39-117); Aspartate Amino Transferase 20 U/L (5-31); Cholesterol 205 mg/dL (<200); HDL Cholesterol 58 mg/dL (>40); Total Protein 6.4 g/dL (6.5-8.0); Triglycerides 88 mg/dL (<150)
== END 2025-03-16 06:03 | disposition home or self-care (01) ==
LOC: HO.LAB 06:02
PROVIDERS: PCP Physician Assistant; Visit Provider Physician Assistant
DX: E78.5 Hyperlipidemia, unspecified (principal)
CPT/HCPCS: 36415; 80061; 80076

== ENCOUNTER 2025-03-19 08:45 | Outpatient (AMB) | payer OTHER, SELFPAY ==
--- OUTSIDE RECORDS SUMMARY | 2024-09-08 06:00 | XMS_ITS ---
Author Organization [facility] Address [address] [place] [address] Care Team Providers Care Warranty Coordinator Name Role Phone Marisa NEVAREZ, Johann Primary Care Provider UnavailCharlette Velazquez [phone] Tamez Encounters Encounter Location Date Provider Diagnosis [address] [address] 09/08/2024 Charlette Desir Plan Of Treatment No Information Progress Notes * aGbriela DREW ADOB:1959 (65 yo F)Acc No.[id number]:09/08/2024 Progress Note Patient: Gabriela PURI Provider: Xiomy Desir DPM :1960 A ge:64 Y S ex:Female Date:09/08/2024 Address:[address] [place], [place] [id number] Pcp:Johann Cunningham MD Subjective: * Chief Complaints: [...] 09/08/2024 Generated for Printi ng/Fayolandag/eTransmitting on: 0 03/19/2025 09:19 AM EDT
--- OUTSIDE RECORDS SUMMARY | 2024-09-25 07:30 | XMS_ITS ---
Author Organization [facility] Address [address] [place] [address] Care Team Providers Care Window Clerk Name Role Phone Marisa NEVAREZ, Johann Primary Care Provider UnavailCharlette Velazquez [phone] Tamez Encounters Encounter Location Date Provider Diagnosis [address] [address] 09/25/2024 Charlette Desir Plan Of Treatment No Information Progress Notes * Gabriela DREW ADOB:1959 (65 yo F)Acc No.[id number]:09/25/2024 Progress Note Patient: Gabriela PURI Provider: Xiomy Desir DPM :1960 A ge:64 Y S ex:Female Date:09/25/2024 Address:[address] [place], [place] [id number] Pcp:Johann Cunningham MD Subjective: * Chief Complaints: [...] DPM Date: 0 09/25/2024 Generated for Printi ng/Fayolandag/eTransmitting on: 0 03/19/2025 09:19 AM EDT
--- NOTE | 2025-03-19 08:50 | A.OFFVIS_ITS ---
Vital Signs 03/19/25 09:00 Height 5 ft 10 in Weight 194 lb BMI 27.8 Intake Visit Reasons: US Follow up/Urine Dip/ Hari raya Physical Security Engineer Required: No Information Interpreted: non-clinical & clinical Accompanied by: Self / Same As Patient Allergies Sulfa (Sulfonamide Antibiotics) Allergy (Intermediate, Verified 03/19/25 09:01) diarrhea sulfamethoxazole (From BACTRIM) Allergy (Intermediate, Verified 03/19/25 09:01) N/V trimethoprim (From BACTRIM) Allergy (Intermediate, Verified 03/19/25 09:01) N/V oxycodone (Percocet) Adverse Reaction (Intermediate, Verified 03/19/25 09:01) stomach upset Post menopausal: Yes HPI Comments Details: Presenting for follow-up and repeat urine dip. Last visit urine dip showed microscopic hematuria, urine culture sent was negative. The patient has pelvic pain has resolved completely Pelvic ultrasound done on 03/05/2025 showed the following: IMPRESSION: Status post hysterectomy. The left ovary is not identified. The right ovary is unremarkable in appearance [facility] Medical History Squamous cell carcinoma of back HLD (hyperlipidemia) Sensory peripheral neuropathy Sensory neuropathy Lumbar disc disease Hammer toe Osteoarthritis, generalized Chronic pain syndrome Spinal stenosis of lumbar region Surgical History H/O colonoscopy (~02/06/24) Hx laparoscopic cholecystectomy Total knee replacement status H/O toe surgery H/O laminectomy S/P discectomy for herniated nucleus pulposus H/O: hysterectomy H/O knee surgery Family History Father Heart disease Stroke Maternal Grandfather Stroke Paternal Uncle Cancer Father No problems noted. 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 Current occupational exposures/hazards: No Sexual orientation: Straight/Heterosexual Gender identity: Female Cognitive needs: No Hearing needs: No Vision needs: Yes (rx glasses) Review of Systems Const All systems reviewed & are unremarkable except as noted in HPI and below Reports as per HPI and Reports no additional complaints GI Reports no additional complaints Reports no additional complaints Physical Exam Vital Signs: BMI result Body Mass Index 27.8 Results AMB Urinalysis Automated WC UR Glucose Last Edit by Birgit Beck LPN on 03/19/25 08:57 UR Ketone Last Edit by Birgit Beck LPN on 03/19/25 08:57 UR Specific [place] 1.010 Last Edit by Birgit Beck LPN on 03/19/25 08:57 UR Blood Last Edit by Birgit Beck LPN on 03/19/25 08:57 UR Ph 6.0 Last Edit by Birgit Beck LPN on 03/19/25 08:57 UR Protein Last Edit by Birgit Beck LPN on 03/19/25 08:57 UR Nitrite Last Edit by Birgit Beck LPN on 03/19/25 08:57 UR Leukocytes Moderate Last Edit by Birgit Beck LPN on 03/19/25 08 :57 Results Reviewed Results Reviewed: Laboratory Last Values Urine pH (Clinic) 6.0 03/19/25 08:56 Specific [place] (Clinic) 1.010 03/19/25 08:56 Leukocyte Esterase (Clinic) Moderate 03/19/25 08:56 Assessment & Plan Assessment & Plan (1) Microscopic hematuria: Code(s): R31.29 - Other microscopic hematuria Category: Medical Plan: Repeat urine dip in the office today showed no evidence of microscopic hematuria. The patient was reassured (2) Pelvic pain: Comment: Resolved Code(s): R10.2 - Pelvic and perineal pain Category: Medical Plan: Discussed with the patient the results the pelvic ultrasound, instructions given the patient to call or go to the emergency room in case of recurrence of her pelvic pain. All questions answered, the patient verbalized understanding Coding Level of Care Code Est Pt Level 3 (42696) Diagnoses Microscopic hematuria R31.29 Pelvic pain R10.2
[2025-03-19 09:00] VITALS: BMI 27.8
--- OUTSIDE RECORDS SUMMARY | 2025-03-19 09:19 | XMS_ITS | Patient Health Record ---
[facility] Address [address] [place] [address] Care Team Providers Care Retirement Specialist Name Role Phone Johann Cunningham MD Primary Care Provider Unavaila ble Charlette Desir Unavailable [phone] Allergies Allergen (clinical drug ingredient) Drug/Non Drug [...] Referring Provider Last Name Marisa Referred Organization [facility] Referred Provider Charlette Desir Referred Address [address],[facility] [place],[address],[place] Referred Provider Specialty Podiatry Referral Priority Routine [...] Problem Acquired hammer toe of right foot ([id number] ) Other hammer toe(s) (acquired), right foot (M20.41) Active confirmed Problem Acquired hammer toe of left foot ([id number] ) Other hammer toe(s) (acquired), left foot (M20.42) Active confirmed Problem Neuropathy (088126126) Neuropathy (G62.9) Active confirmed Problem Localized, primary osteoarthritis of the ankle and/or foot (214923992) Osteoarthritis of right ankle and foot (M19.071) Active confirmed Problem Osteoarthritis of midtarsal joint of left foot (6587460550819397 ) Osteoarthritis of midtarsal joint of left foot (M19.072) Active confirmed Vital Signs Blood pressure diastolic 80 mm Hg 09/18/2024 Height 8pp95tz in 09/18/2024 Blood pressure systolic 135 mm Hg 09/18/2024 Weight 195 lbs 09/18/2024 BMI 27.98 kg/m2 09/18/2024 Encounters Encounter Location Date Provider Diagnosis [address] [address] 05/12/2024 Charlette Black Pain in left foot M79.672 ; Neuritis M79.2 ; Pain in left ankle and joints of left foot M25.572 ; Osteoarthritis of midtarsal joint of left foot M19.072 ; Pain in right foot M79.671 ; Pain in right ankle and joints of right foot M25.571 ; Osteoarthritis of midtarsal joint of right foot M19.071 and Neuropathy G62.[address] [address] 06/05/2024 Charlette Black Pain in left foot M79.672 ; Neuritis M79.2 ; Pain in left ankle and joints of left foot M25.572 ; Pain in right foot M79.671 ; Pain in right ankle and joints of right foot M25.571 and Neuropathy G62.[address] [address] 09/18/2024 Charlette Black Pain in left foot [...] of right ankle and foot M19.071 [facility] [address] [address] 05/12/2024 Charlettevika Desir [facility] [address] [address] 09/18/2024 Charlette Desir Assessments Encounter Date Diagnosis [...] X ray : Foot, right 3V 12/02/2018 66884, [id number]- INJECT or DRAIN, JOINT/BUR SA 07/16/2019 Insurance Providers Payer Name Payer Address Payer Phone Subscriber Number Group Number Insured Name Patient Relationship to Insured Coverage Start Date Coverage End Date [facility] Plan [address] [place] [address] [id number] Richard Myers Spouse - patient is the [...]
== END 2025-03-19 09:20 | disposition home or self-care (01) ==
LOC: HO.HWS 08:45
PROVIDERS: PCP Physician Assistant; Visit Provider Obstetrics & Gynecology
DX: R31.29 Other microscopic hematuria (principal); R10.2 Pelvic and perineal pain
CPT/HCPCS: 99213

== ENCOUNTER → 2025-03-19 08:45 | Outpatient (BNVA) | payer OTHER, SELFPAY | PROVIDERS: PCP Physician Assistant; Visit Provider Obstetrics & Gynecology | DX: R10.2 Pelvic and perineal pain (principal); R31.29 Other microscopic hematuria | CPT/HCPCS: 99212 ==

== ENCOUNTER 2025-04-23 08:12 | Outpatient (AMB) | payer OTHER, SELFPAY ==
--- NOTE | 2025-04-23 08:34 | A.OFFVIS_ITS ---
Intake Visit Reasons: 3m PN Allergies Sulfa (Sulfonamide Antibiotics) Allergy (Intermediate, Verified 04/23/25 08:38) diarrhea sulfamethoxazole (From BACTRIM) Allergy (Intermediate, Verified 04/23/25 08:38) N/V trimethoprim (From BACTRIM) Allergy (Intermediate, Verified 04/23/25 08:38) N/V oxycodone (Percocet) Adverse Reaction (Intermediate, Verified 04/23/25 08:38) stomach upset Medication List - Last Reconciled 04/23/25 by Zenaida Cardoso CNP cetirizine (Zyrtec) 10 mg PO DAILY cholecalciferol (vitamin D3) 125 mcg PO DAILY clobetasol 0.05% 1 appl topical DAILY 1 week clotrimazole-betamethasone 1-0.05 % 1 appl topical BID cyanocobalamin (vitamin B-12) 5,000 mcg PO DAILY estradiol 0.01%(0.1mg/gram) apply thin coat daily 30 days fluticasone propionate 50 mcg/actuation 1 spray intranasal DAILY gabapentin 600 mg (2 x 300 mg) PO TID 90 days mirabegron ER (Myrbetriq) 50 mg PO DAILY omega 7-pqg-sft-fish oil 300-1,000 mg (Fish Oil) 1 cap PO DAILY omeprazole 20 mg PO DAILY pravastatin 40 mg PO BEDTIME solifenacin (Vesicare) 5 mg PO BEDTIME HPI Comments Details: She was doing okay. Increased dose of gabapentin was helping and pain in legs was better. Zapping pain was less. No medication side effects. Sleep was okay, taking CBD gummy which helps. Some numbness and tingling to left foot. Balance off at times, but no falls. Had steroid injection to L knee at [facility], likely will need TKR within a year. Had few episodes of slurred speech lasting between 5-30 minutes and friends have noticed. Had headache at the time and says she generally has a lot of headaches. No other symptoms such as weakness, dizziness, or confusion. Was having zapping pains in both legs, worse at night, which made falling asleep difficult. More numbness and tingling to left foot. She has a history of burning and tingling in both feet with the left being worse than the right since around 2022. The symptoms are fairly constant. She has trouble sleeping at night. She also gets some tingling in her arms and hands. She was having severe low back pain for which she had a lumbar laminectomy and discectomy in 2020. That helped with her back pain but has not affected the numbness in her feet and the burning pain. She also gets sensations of electrical currents from the hips down in both lower extremities. [facility] Medical History Squamous cell carcinoma of back HLD (hyperlipidemia) Sensory peripheral neuropathy Sensory neuropathy Lumbar disc disease Hammer toe Osteoarthritis, generalized Chronic pain syndrome Spinal stenosis of lumbar region Surgical History H/O colonoscopy (~02/06/24) Hx laparoscopic cholecystectomy Total knee replacement status H/O toe surgery H/O laminectomy S/P discectomy for herniated nucleus pulposus H/O: hysterectomy H/O knee surgery Family History Father Heart disease Stroke Maternal Grandfather Stroke Paternal Uncle Cancer Father No problems noted. Social History Household Members: Spouse Housing: House Alcohol intake: current Alcohol intake frequency: holidays/special occasions only Comment: counts correct Patient Tobacco Use Status: Current someday Tobacco user Tobacco use type: Cigarette Cigarettes Per Day: 3 Years Smoked: stopped few months ago e-Cigarette/Vaping Use: Currently Using service: No Current occupational status: employed and retired Current occupation: [employer] Current occupational exposures/hazards: No Sexual orientation: Straight/Heterosexual Gender identity: Female Cognitive needs: No Hearing needs: No Vision needs: Yes (rx glasses) Review of Systems Const Denies chills, Denies daytime sleepiness, Reports difficulty sleeping, Denies fatigue, Denies fever(s), Denies frequent falls, Reports headache(s), Denies increased appetite, Denies poor appetite, Denies snoring, Denies weakness, Denies weight gain and Denies weight loss Eyes Denies loss of vision ENT Denies vertigo, Denies dizziness, Reports headache(s) and Reports neck pain Card Denies chest pain at rest, Denies chest pain with activity, Denies syncope, Denies leg edema, Denies palpitations, Denies dyspnea and Denies dyspnea on exertion Resp Denies cough, Denies dyspnea, Denies dyspnea on exertion and Denies snoring GI Denies abdominal pain, Denies constipation, Denies heartburn, Denies diarrhea and Denies nausea Denies urinary frequency, Denies urinary incontinence and Denies urinary urgency Musc Denies abnormal gait, Reports back pain, Reports myalgias, Reports arthralgias, Reports neck pain, Reports numbness and Reports tingling Neuro Denies abnormal gait, Denies vertigo, Denies dizziness, Denies syncope, Denies frequent falls, Reports headache(s), Denies lack of coordination, Denies loss of vision, Denies memory loss, Reports numbness, Denies Other visual disturbances, Denies restless legs, Denies seizure-like activity, Reports tingling, Denies paresthesias, Denies tremor(s) and Denies weakness Psych Denies anxiety, Denies depression, Denies auditory hallucinations, Denies memory loss and Denies visual hallucinations Endo Denies fatigue and Denies palpitations Physical Exam Const Other: General Appearance:? normal, in no acute distress. Heart:? S1, S2 normal, no murmurs. Lungs:? clear anteriorly and posteriorly. Musculoskeletal:? normal. Extremities:? no edema. Psych:? alert, oriented, cognitive function intact, cooperative with exam. Neuro Other: Abnormal Neurological Findings:?Blunting of pinprick and vibration sensation in both feet distal to the mid tarsal level Mental Status: alert and oriented X 3. Normal attention, orientation, memory, and affect. Cranial Nerves: Pupils are equal, round, and reactive to light. External ocular muscles are intact. Visual haney are full, no ptosis. Face is symmetrical, no facial weakness or droop. Facial sensations are normal. Tongue protrudes in midline. Palate elevates symmetrically. Shoulder shrugging is normal Motor Examination: Normal muscle tone, bulk and strength. No atrophy or fasciculations. No drift of the extended upper extremities. DTR 2+. Plantars are flexor. Sensory Exam: As above. Coordination: No ataxia. No titubation. Ritcbo-ak-plnl, vcrv-equb-vvve test, and rapid alternating movements were normal. Gait Exam: Within normal limits. Cerebellar Signs: Inphzi-rt-wqqo is okay. Extrapyramidal System: No tremor, rigidity with normal facial expressions. No bradykinesia. No bradyphrenia. Normal arm swing and posture. No propulsion or retropulsion. Speech: Normal. Results Reviewed Results Reviewed: 06/24/24 NCV/EMG ALL Motor axonal loss in the ulnar motor nerves bilaterally in the upper extremities. Axonal sensory greater than motor peripheral neuropathy in the lower extr emities. Normal EMG in the C5-T1 innervated muscles. EMG in the L4-S1 innervated muscles is consistent with mild chronic neuropathic changes. Assessment & Plan Assessment & Plan (1) Sensory peripheral neuropathy: Code(s): G60.8 - Other hereditary and idiopathic neuropathies Category: Medical Plan: Continue gabapentin 300mg 2 capsules three times a day. (2) Lumbar disc disease: Code(s): M51.9 - Unspecified thoracic, thoracolumbar and lumbosacral intervertebral disc disorder Category: Medical (3) Slurred speech: Code(s): R47.81 - Slurred speech Category: Medical Plan: No issues with speech noted on exam. Discussed brain MRI, but she was declining at this time. She was advised to contact the office for any new or worsening symptoms, ER precautions reviewed. Follow up in 3 months or sooner as needed. Plan . Coding Level of Care Code Est Pt Level 4 (02955) Diagnoses Sensory peripheral neuropathy G60.8 Lumbar disc disease M51.9 Slurred speech R47.81
== END 2025-04-23 08:57 | disposition home or self-care (01) ==
LOC: HO.HSM 08:12
PROVIDERS: PCP Internal Medicine; Visit Provider Registered Nurse
DX: G60.8 Other hereditary and idiopathic neuropathies (principal); M51.9 Unspecified thoracic, thoracolumbar and lumbosacral intervertebral disc disorder; R47.81 Slurred speech
CPT/HCPCS: 99214

== ENCOUNTER 2025-05-07 08:22 | Outpatient (AMB) | payer OTHER, SELFPAY ==
--- OUTSIDE RECORDS SUMMARY | 2024-09-08 05:00 | XMS_ITS ---
Author Organization [facility] Address [address] [place] [address] Care Team Providers Care Conference Service Coordinator Name Role Phone Marisa NEVAREZ, Johann Primary Care Provider UnavailCharlette Velazquez [phone] Tamez Encounters Encounter Location Date Provider Diagnosis [address] [address] 09/08/2024 Charlette Desir Plan Of Treatment No Information Progress Notes * Gabriela DREW ADOB:1959 (65 yo F)Acc No.[id number]:09/08/2024 Progress Note Patient: Gabriela PURI Provider: Xiomy Desir DPM :1960 A ge:64 Y S ex:Female Date:09/08/2024 Address:[address] [place], [place] [id number] Pcp:Johann Cunningham MD Subjective: * Chief Complaints: * [address] Tamez. * Medical History: Objective: * Vitals: Assessment: Plan: * Treatment: * Images: * The named appointment provid er may or may not be the originator of this progress note, and it is not deemed complete until electronically signed by the appointment provider. Sign off status: Pending * Provider: Xiomy Desir DPM Date: 0 09/08/2024 Generated for Printi henry/Villa/eTransmitting on: 1 07/07/2024 08:39 AM EST
--- OUTSIDE RECORDS SUMMARY | 2024-09-25 06:30 | XMS_ITS ---
Author Organization [facility] Address [address] [place] [address] Care Team Providers Care Milking Worker Name Role Phone Marisa NEVAREZ, Johann Primary Care Provider UnavailCharlette Velazquez [phone] Tamez Encounters Encounter Location Date Provider Diagnosis [address] [address] 09/25/2024 Charlette Desir Plan Of Treatment No Information Progress Notes * Gabriela DREW ADOB:1959 (65 yo F)Acc No.[id number]:09/25/2024 Progress Note Patient: Gabriela PURI Provider: Xiomy Desir DPM :1960 A ge:64 Y S ex:Female Date:09/25/2024 Address:[address] [place], [place] [id number] Pcp:Johann Cunningham MD Subjective: * Chief Complaints: [...] * Provider: Xiomy Desir DPM Date: 0 09/25/2024 Generated for Printi henry/Villa/eTransmitting on: 07/07/2024 08:39 AM EST
--- NOTE | 2025-05-07 08:22 | A.OFFVIS_ITS ---
Intake Visit Reasons: Pessary maintenance Intake Note: Patient is present for a follow up/pessary maintanence Urology Med: Myrbetriq, Estradiol, Solifenacin, Vitamin B12 Antibiotic Allergy: Sulfa, Trimethroprim Blood Thinner: None Accompanied by: Self / Same As Patient Allergies Sulfa (Sulfonamide Antibiotics) Allergy (Intermediate, Verified 05/11/25 07:58) diarrhea sulfamethoxazole (From BACTRIM) Allergy (Intermediate, Verified 05/11/25 07:58) N/V trimethoprim (From BACTRIM) Allergy (Intermediate, Verified 05/11/25 07:58) N/V oxycodone (Percocet) Adverse Reaction (Intermediate, Verified 05/11/25 07:58) stomach upset HPI Comments Details: 05/07/25--Sweta is a 65 y/o female who is managed with a pessary for cystocele and she is on Myrbetriq 50 mg daily for overactive bladder symptoms she also takes VESIcare 5 mg at bedtime. History of Present Illness The patient is a 65-year-old female presenting with issues related to her pessary and overactive bladder management. The patient has been using a pessary for the management of cystocele. She reports feeling the pessary at the vaginal opening, particularly during urination, which indicates a possible displacement or discomfort. For her overactive bladder, she is currently on Myrbetriq 50 mg daily and Vesicare 5 mg. There is no report of burning during urination, but some discomfort is noted. Plan 1. Overactive Bladder - Continue current medications: Myrbetriq 50 mg daily and Vesicare 5 mg. 2. Cystocele - Evaluate pessary placement due to reported discomfort and sensation of displacement. - Schedule an appointment for physical examination to assess pessary fit and function. 12/29/2024--follow-up overactive bladder, cystocele Managed with pessary and Myrbetriq 50 mg daily History of Present Illness - The patient is a 64-year-old female presenting with overactive bladder and cystocele. - Overactive bladder and cystocele are managed with a pessary and medications, including Mirabegron and Solifenacin. - The patient independently manages the pessary and reports effective symptom control with the current medication regimen. - A follow-up is planned in one year to reassess the management plan. Results - Urinalysis: Within normal limits, blood negative 06/30/24--Sweta is states she has retired, followed for pelvic floor weakness and cystocele with overactive bladder symptoms. She is on Myrbetriq 50 mg daily. Vaginal cystocele is managed with pessary. She was seen last in the office on 03/17/2024. She states the Myrbetriq works during the daytime but she is getting up frequently at nighttime, and will sometimes leak before getting to the bathroom. Denies dysuria. Will empirically add VESIcare 5 mg at bedtime. She is able to remove pessary and clean it at home. I have discussed if the pessary starts to get worn that we will order another one. Will send a surveillance urine culture. 03/17/2024--Sweta is followed for pelvic floor weakness and cystocele with over active bladder symptoms. She is on Myrbetriq 50 mg daily. Vaginal cystocele is managed with pessary. She states that she has had a flare in her lichen sclerosis symptoms. She uses clobetasol that is prescribed by Dr. Raya but it is not helping. She states that when she urinates it stoddard on the skin. Urinalysis is negative. I want her to follow-up with [facility] to be further evaluated. I will empirically try a steroid cream with an antifungal component to see if this may be helpful. 12/31/23-- Sweta is a 63-year-old female who presents to the office for 6-months follow-up for cystocele with pessary maintenance, OAB and pelvic floor weakness. She states that she feels that for the last several weeks pessary is laying lower especially when standing. On exam Pessary refitting - pessary removed and new pessary size 4 ring/wo support. Will continue Myrbetriq 50 mg qd. 07/06/23--Sweta is a 62-year-old female who presents to the office for 6-months follow-up for cystocele with pessary maintenance, OAB and pelvic floor weakness. She states that she had knee surgery 6 weeks ago, she states that the pessary kept dropping low so she removed it and has recently put it back in about 3-4 days. She has been doing kegels. Evaluation today-- UA - no signs of infection. Plan: Cont Myrbetriq 50 mg QD 11/30/22-- The patient was last seen on 05/25/22. She states she has been managing the p essary, and is able to remove and clean it. States having frequent voiding episodes and irritated skin due to wiping. The patient mentions occasional urinary episodes after every hour or two. Mentions drinking adequate amount of water. At once occasion the patient had episodes of nocturia every hour or 20 minutes. Has nocturia episodes which she links with increased fluid consumption during the day. The patient is using estradiol cream. [facility] Medical History Squamous cell carcinoma of back HLD (hyperlipidemia) Sensory peripheral neuropathy Sensory neuropathy Lumbar disc disease Hammer toe Osteoarthritis, generalized Chronic pain syndrome Spinal stenosis of lumbar region Surgical History H/O colonoscopy (~02/06/24) Hx laparoscopic cholecystectomy Total knee replacement status H/O toe surgery H/O laminectomy S/P discectomy for herniated nucleus pulposus H/O: hysterectomy H/O knee surgery Family History Father Heart disease Stroke Maternal Grandfather Stroke Paternal Uncle Cancer Father No problems noted. Social History Household Members: Spouse Housing: House Alcohol intake: current Alcohol intake frequency: holidays/special occasions only Comment: counts correct Patient Tobacco Use Status: Current someday Tobacco user Tobacco use type: Cigarette Cigarettes Per Day: 3 Years Smoked: stopped few months ago e-Cigarette/Vaping Use: Currently Using service: No Current occupational status: employed and retired Current occupation: [employer] Current occupational exposures/hazards: No Sexual orientation: Straight/Heterosexual Gender identity: Female Cognitive needs: No Hearing needs: No Vision needs: Yes (rx glasses) Review of Systems Const All systems reviewed & are unremarkable except as noted in HPI and below Reports no additional complaints Eyes Reports no additional complaints ENT Reports no additional complaints Card Reports no additional complaints Resp Reports no additional complaints GI Reports no additional complaints Reports as per HPI Musc Reports no additional complaints Skin/Breast Reports system reviewed and no additional complaints, except as documented Neuro Reports no additional complaints Psych Reports no additional complaints Endo Reports no additional complaints Ba/Lymph Reports no additional complaints Aller/Immun Reports no additional complaints Telehealth Telehealth Telehealth Platform: Telephone Location of provider rendering services: practice address Location of patient: address on file Patient Identification confirmed using: Name, : Yes Telehealth method: voice only Patient verbally consented to treatment: Yes Patient verbally consented to billing insurance company: Yes Patient informed of any privacy concerns related to visit: Yes Minutes spent on Phone/Video with Pt.: 14 Assessment & Plan Assessment & Plan (1) JAMEL (stress urinary incontinence, female): Code(s): N39.3 - Stress incontinence (female) (male) Category: Medical (2) Cystocele: Category: Medical (3) Pelvic floor weakness: Code(s): N81.89 - Other female genital prolapse Category: Medical (4) OAB (overactive bladder): Code(s): N32.81 - Overactive bladder Category: Medical Plan Plan - Continue current medications: Myrbetriq 50 mg daily and Vesicare 5 mg. - Evaluate pessary placement due to reported discomfort and sensation of displacement. - Schedule an appointment for physical examination to assess pessary fit and function. Patient Instructions: The patient had an opportunity to ask questions regarding treatment plan. The patient expressed understanding and agreement with the above treatment plan. The patient is aware they should contact our office by phone for worsening of their current condition or the appearance of new symptoms. Compliance is encouraged with any medications and followup testing that is ordered. It is a privilege to be allowed the opportunity to participate in the urologic care of your patient. If you have any questions or concerns regarding treatment for the above conditions please do not hesitate to contact me. The office telephone contact is [phone]. This note is constructed in part using voice recognition software. While every effort has been made to ensure accuracy diamond picker errors may have been included. Yours sincerely, Nick Nunez MD Scribe Plan - Not visible on output: Patient was informed and verbally consented to the use of an ambient scribe for clinic note documentation during this visit. Coding Level of Care Code Tele New Pt Level 3 (56939) Diagnoses JAMEL (stress urinary incontinence, female) N39.3 Cystocele Pelvic floor weakness N81.89 OAB (overactive bladder) N32.81
--- OUTSIDE RECORDS SUMMARY | 2025-05-07 08:39 | XMS_ITS | Patient Health Record ---
Author Organization [facility] Address [address] [place] [address] Care Team Providers Care Machine Brusher Name Role Phone Johann Cunningham MD Primary Care Provider Unavaila ble Charlette Desir Unavailable [phone] Allergies Allergen (clinical drug ingredient) Drug/Non Drug [...] Referring Provider Last Name Marisa Referred Organization [facility] Referred Provider Charlette Desir Referred Address [address],[facility],[place],[address],[place] Referred Provider Specialty Podiatry Referral Priority Routine [...] Problem Acquired hammer toe of right foot (0475923658204540 ) Other hammer toe(s) (acquired), right foot (M20.41) Active confirmed Problem Acquired hammer toe of left foot (1424437838762993 ) Other hammer toe(s) (acquired), left foot (M20.42) Active confirmed Problem Neuropathy (398189120) Neuropathy (G62.9) Active confirmed Problem Localized, primary osteoarthritis of the ankle and/or foot (568706105) Osteoarthritis of right ankle and foot (M19.071) Active confirmed Problem Osteoarthritis of midtarsal joint of left foot (9995211507440583 ) Osteoarthritis of midtarsal joint of left foot (M19.072) Active confirmed Vital Signs Blood pressure diastolic 80 mm Hg 09/18/2024 Height 9ld10yp in 09/18/2024 Blood pressure systolic 135 mm Hg 09/18/2024 Weight 195 lbs 09/18/2024 BMI 27.98 kg/m2 09/18/2024 Encounters Encounter Location Date Provider Diagnosis [address] [address] 05/12/2024 Charlette Black Pain in left foot M79.672 ; Neuritis M79.2 ; Pain in left ankle and joints of left foot M25.572 ; Osteoarthritis of midtarsal joint of left foot M19.072 ; Pain in right foot M79.671 ; Pain in right ankle and joints of right foot M25.571 ; Osteoarthritis of midtarsal joint of right foot M19.071 and Neuropathy G62.[address] [address] 06/05/2024 Charlette Black Pain in left foot M79.672 ; Neuritis M79.2 ; Pain in left ankle and joints of left foot M25.572 ; Pain in right foot M79.671 ; Pain in right ankle and joints of right foot M25.571 and Neuropathy G62.[address] [address] 09/18/2024 Charlette Black Pain in left foot M79.672 ; Neuritis M79.2 ; Pain in left ankle and joints of left foot M25.572 ; Pain in right foot M79.671 ; Pain in right ankle and joints of right foot M25.571 ; Neuropathy G62.9 ; Bursitis of right foot M77.51 ; Hypertrophy of bone of foot M89.379 and Osteoarthritis of right ankle and foot M19.071 [facility] [address] [address] 05/12/2024 Charlettevika Desir [facility] [address] [address] 09/18/2024 Charlette Desir Assessments Encounter Date Diagnosis [...] X ray : Foot, right 3V 12/02/2018 86137, [id number]- INJECT or DRAIN, JOINT/BUR SA 07/16/2019 Insurance Providers Payer Name Payer Address Payer Phone Subscriber Number Group Number Insured Name Patient Relationship to Insured Coverage Start Date Coverage End Date [facility] Plan [address] [place] [address] [id number] Richard Myers Spouse - patient is the [...]
== END 2025-05-07 11:35 | disposition home or self-care (01) ==
LOC: HO.HUSH 08:22
PROVIDERS: PCP Internal Medicine; Visit Provider Urology
DX: N39.3 Stress incontinence (female) (male) (principal); N81.89 Other female genital prolapse; N32.81 Overactive bladder
CPT/HCPCS: 98013

== ENCOUNTER 2025-05-11 07:36 | Outpatient (REF) | payer OTHER, SELFPAY | END 2025-05-11 07:37 | disposition home or self-care (01) | LOC: HO.LAB 07:36 | PROVIDERS: PCP Internal Medicine; Visit Provider Urology | DX: R31.29 Other microscopic hematuria (principal); N39.41 Urge incontinence; R35.1 Nocturia; N32.81 Overactive bladder; Z79.899 Other long term (current) drug therapy | CPT/HCPCS: 87086 ==

== ENCOUNTER 2025-05-11 07:36 | Outpatient (AMB) | payer OTHER, SELFPAY ==
--- NOTE | 2025-05-11 07:41 | A.OFFVIS_ITS ---
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 She is on Myrbetriq 50 mg and vesicare 5 mg daily. Vaginal cystocele is managed with pessary. LV 05/07/25--she stated the pessary has been moving out of place. She presents for pessary re-sizing. New pessary placed. Discussed referral for surgical management, pt declines. 05/07/25--Sweta is a 65 y/o female who is managed with a pessary for cystocele and she is on Myrbetriq 50 mg daily for overactive bladder symptoms she also takes VESIcare 5 mg at bedtime. She states she feels that the pessary is moving and not holding the bladder up like it was before. 12/29/2024--follow-up overactive bladder, cystocele Managed with pessary and Myrbetriq 50 mg daily History of Present Illness - The patient is a 64-year-old female presenting with overactive bladder and cystocele. - Overactive bladder and cystocele are managed with a pessary and medications, including Mirabegron and Solifenacin. - The patient independently manages the pessary and reports effective symptom control with the current medication regimen. - A follow-up is planned in one year to reassess the management plan. Results - Urinalysis: Within normal limits, blood negative 06/30/24--Sweta is states she has retired, followed for pelvic floor weakness and cystocele with overactive bladder symptoms. She is on Myrbetriq 50 mg daily. Vaginal cystocele is managed with pessary. She was seen last in the office on 03/17/2024. She states the Myrbetriq works during the daytime but she is getting up frequently at nighttime, and will sometimes leak before getting to the bathroom. Denies dysuria. Will empirically add VESIcare 5 mg at bedtime. She is able to remove pessary and clean it at home. I have discussed if the pessary starts to get worn that we will order another one. Will send a surveillance urine culture. 03/17/2024--Sweta is followed for pelvic floor weakness and cystocele with overactive bladder symptoms. She is on Myrbetriq 50 mg daily. Vaginal cystocele is managed with pessary. She states that she has had a flare in her lichen sclerosis symptoms. She uses clobetasol that is prescribed by Dr. Raya but it is not helping. She states that when she urinates it stoddard on the skin. Urinalysis is negative. I want her to follow-up with [employer]ILY CON[employer] SCIENCE TEACH[employer] to be further evaluated. I will empirically try a steroid cream with an antifungal component to see if this may be helpful. 12/31/23-- Sweta is a 63-year-old female who presents to the office for 6-months follow-up for cystocele with pessary maintenance, OAB and pelvic floor weakness. She states that she feels that for the last several weeks pessary is laying lower especially when standing. On exam Pessary refitting - pessary removed and new pessary size 4 ring/wo support. Will continue Myrbetriq 50 mg qd. 07/06/23--Sweta is a 62-year-old female who presents to the office for 6-months follow-up for cystocele with pessary maintenance, OAB and pelvic floor weakness. She states that she had knee surgery 6 weeks ago, she states that the pessary kept dropping low so she removed it and has recently put it back in about 3-4 days. She has been doing kegels. Evaluation today-- UA - no signs of infection. Plan: Cont Myrbetriq 50 mg QD 11/30/22-- The patient was last seen on 05/25/22. She states she has been managing the pessary, and is able to remove and clean it. States having frequent voiding episodes and irritated skin due to wiping. The patient mentions occasional urinary episodes after every hour or two. Mentions drinking adequate amount of water. At once occasion the patient had episodes of nocturia every hour or 20 minutes. Has nocturia episodes which she links with increased fluid consumption during the day. The patient is using estradiol cream. PFS Medical History Squamous cell carcinoma of back HLD (hyperlipidemia) Sensory peripheral neuropathy Sensory neuropathy Lumbar disc disease Hammer toe Osteoarthritis, generalized Chronic pain syndrome Spinal stenosis of lumbar region Surgical History H/O colonoscopy (~02/06/24) Hx laparoscopic cholecystectomy Total knee replacement status H/O toe surgery H/O laminectomy S/P discectomy for herniated nucleus pulposus H/O: hysterectomy H/O knee surgery Family History Father Heart disease Stroke Maternal Grandfather Stroke Paternal Uncle Cancer Father No problems noted. Social History Household Members: Spouse Housing: House Alcohol intake: current Alcohol intake frequency: holidays/special occasions only Comment: counts correct Patient Tobacco Use Status: Current someday Tobacco user Tobacco use type: Cigarette Cigarettes Per Day: 3 Years Smoked: stopped few months ago e-Cigarette/Vaping Use: Currently Using service: No Current occupational status: employed and retired Current occupation: [employer] Current occupational exposures/hazards: No Sexual orientation: Straight/Heterosexual Gender identity: Female Cognitive needs: No Hearing needs: No Vision needs: Yes (rx glasses) Review of Systems Const All systems reviewed & are unremarkable except as noted in HPI and below Reports no additional complaints Eyes Reports no additional complaints ENT Reports no additional complaints Card Reports no additional complaints Resp Reports no additional complaints GI Reports no additional complaints Reports as per HPI Musc Reports no additional complaints Skin/Breast Reports system reviewed and no additional complaints, except as documented Neuro Reports no additional complaints Psych Reports no additional complaints Endo Reports no additional complaints Ba/Lymph Reports no additional complaints Aller/Immun Reports no additional complaints Results AMB Urinalysis, Automated UA Leukoctes 500 Ana/uL Last Edit by TOMMIE Snow on 05/11/25 07:59 UA Nitrite Negative Last Edit by Renita Colon, CCMA on 05/11/25 07:59 UA Urobilinogen 0.2 mg/dL Last Edit by Renita Colon, [facility] on 05/11/25 07:59 UA Protein 0 mg/dL Last Edit by Renita Colon, [facility] on 05/11/25 07:59 UA pH 6.0 Last Edit by Renita Colon, [facility] on 05/11/25 07:59 UA Blood 0 Carlos/uL Last Edit by Renita Colon, CCMA on 05/11/25 07:59 UA Specific [place] 1.015 Last Edit by Renita Colon, [facility] on 05/11/25 07:5 9 UA Ketone Negative Last Edit by Renita Colon, [facility] on 05/11/25 07:59 UA Bilirubin 0 mg/dL Last Edit by Renita Colon, [facility] on 05/11/25 07:59 UA Glucose 0 mg/dL Last Edit by Renita Colon, [facility] on 05/11/25 07:59 Results Reviewed Results Reviewed: Laboratory Last Values Urine pH (Auto) 6.0 05/11/25 07:58 Specific [place] (Auto) 1.015 05/11/25 07:58 Urine Protein (Auto) 0 mg/dL 05/11/25 07:58 Glucose (UA)(Auto) 0 mg/dL 05/11/25 07:58 Urine Ketones (Auto) Negative 05/11/25 07:58 Urine Blood (Auto) 0 Carlos/uL 05/11/25 07:58 Urine Nitrite (Auto) Negative 05/11/25 07:58 Urine Bilirubin (Auto) 0 mg/dL 05/11/25 07:58 Urine Urobilinogen (Auto) 0.2 mg/dL 05/11/25 07:58 Leukocyte Esterase (Auto) 500 Ana/uL 05/11/25 07:58 Assessment & Plan Assessment & Plan (1) JAMEL (stress urinary incontinence, female): Code(s): N39.3 - Stress incontinence (female) (male) Category: Medical (2) Cystocele: Category: Medical (3) Pelvic floor weakness: Code(s): N81.89 - Other female genital prolapse Category: Medical (4) OAB (overactive bladder): Code(s): N32.81 - Overactive bladder Category: Medical Plan Plan - Continue current medications: Myrbetriq 50 mg daily and Vesicare 5 mg. -Pessary re-sized today Orders: Orders Urine Culture 05/11/25 R32 - Unspecified urinary incontinence, R31.29 - Other microscopic hematuria, N39.41 - Urge incontinence, R35.1 - Nocturia, N32.81 - Overactive bladder Patient Instructions: The patient had an opportunity to ask questions regarding treatment plan. The patient expressed understanding and agreement with the above treatment plan. The patient is aware they should contact our office by phone for worsening of their current condition or the appearance of new symptoms. Compliance is encouraged with any medications and followup testing that is ordered. It is a privilege to be allowed the opportunity to participate in the urologic care of your patient. If you have any questions or concerns regarding treatment for the above conditions please do not hesitate to contact me. The office telephone contact is [phone]. This note is constructed in part using voice recognition software. While every effort has been made to ensure accuracy abnormal psychology teacher errors may have been included. Yours sincerely, Nick Nunez MD Coding Level of Care Code Est Pt Level 3 (65414) Diagnoses JAMEL (stress urinary incontinence, female) N39.3 Cystocele Pelvic floor weakness N81.89 OAB (overactive bladder) N32.81
== END 2025-05-11 08:25 | disposition home or self-care (01) ==
LOC: HO.HUSH 07:37
PROVIDERS: PCP Internal Medicine; Visit Provider Urology
DX: N39.3 Stress incontinence (female) (male) (principal); N81.89 Other female genital prolapse; N32.81 Overactive bladder
CPT/HCPCS: 99213